=== PATIENT | male | born 1950 | race Caucasian/White ===

== ENCOUNTER 2016-05-30 00:17 | Inpatient (IN) | payer OTHER, MEDICARE ==
[2016-05-30] MEDS ORDERED: SODIUM CHLORIDE 0.9% 1,000 ML IV STA (00:54)
--- NOTE | 2016-05-30 00:54 | ED ---
General Adult HPI - General Chief complaint: Recheck/Abnormal Lab/Rx Stated complaint: Low Blood Pressure Time Seen by Provider: 05/30/16 00:40 Source: patient, RN notes reviewed, old records reviewed Mode of arrival: EMS Limitations: no limitations - History of Present Illness Initial comments: This is a 66-year-old male here for evaluation of weakness, weakness fatigue. Patient has multiple in the pelvic area recent medical history. Patient sent in from clinic care facility for evaluation of low blood pressure. Patient states that he has significant shortness of breath [place] [employer] within is worsening, states it feels like there is a lot of fluid has lungs that she has had an issue of. Patient denies abdominal pain, no specific chest at this time aside from the shortness of breath. No other nausea vomiting or diarrhea. No known fevers - Related Data Home Medications Medication Instructions Recorded Confirmed Allopurinol [Zyloprim] 100 mg PO DAILY PRN 04/22/16 05/18/16 Atorvastatin [Lipitor] 40 mg PO HS 05/18/16 05/18/16 INSULIN LISPRO (humaLOG) [humaLOG See Protocol SQ ACHS 05/18/16 05/18/16 (formulary)] Multivitamins, Thera [Multivitamin] 1 tab PO DAILY@1200 05/18/16 05/18/16 Sennosides [Senna] 17.2 mg PO HS 05/18/16 05/18/16 Previous Rx's Medication Instructions Recorded Apixaban [Eliquis] 5 mg PO BID tab 05/11/16 Aspirin 81 mg PO DAILY chew 05/11/16 Bisacodyl [Dulcolax] 10 mg RECTAL DAILY PRN #0 supp 05/11/16 Carvedilol [Coreg] 3.125 mg PO BID-W/MEALS tab 05/11/16 Ferrous Sulfate [Iron (65 MG 325 mg PO W/LUNCH tab 05/11/16 Elemental)] Furosemide [Lasix] 20 mg PO DAILY #30 tab 05/11/16 Insulin Glargine [Lantus] 25 unit SQ HS #0 vial 05/11/16 Pantoprazole [Protonix] 40 mg PO AC-BRKFST tablet. 05/11/16 QUEtiapine [SEROquel] 12.5 mg PO W/SUPPER tab 05/11/16 Tamsulosin [Flomax] 0.4 mg PO PC-SUPPER #0 cap.er.24h 05/11/16 Thiamine [Vitamin B-1] 100 mg PO BID@1200,1700 tab 05/11/16 guaiFENesin [Mucinex] 600 mg PO Q12HR tablet.er 05/11/16 Albuterol Nebulized [Ventolin 2.5 mg INHALATION RT-QID nebu 05/24/16 Nebulized] Amiodarone [Cordarone] 200 mg PO BID tab 05/24/16 Budesonide [Pulmicort] 0.5 mg INHALATION RT-BID nebu 05/24/16 Cefuroxime [Ceftin] 250 mg PO BID #14 tablet 05/24/16 INSULIN LISPRO (humaLOG) [humaLOG 3 unit SQ AC-TID #0 vial 05/24/16 (formulary)] Lisinopril [Zestril] 2.5 mg PO DAILY tab 05/24/16 Nitroglycerin Sl Tabs [Nitrostat] 0.4 mg SUBLINGUAL Q5M PRN #0 tab 05/24/16 predniSONE 0 mg PO DIRECTED #45 tab 05/24/16 traMADol HCl [Ultram] 50 mg PO Q6H PRN #120 tab 05/24/16 Allergies Allergy/AdvReac Type Severity Reaction Status Date / Time No Known Allergies Allergy Verified 05/18/16 18:52 Review of Systems ROS Statement: Those systems with pertinent positive or pertinent negative responses have been documented in the HPI. ROS Other: All systems not noted in ROS Statement are negative. Past Medical History Past Medical History: Atrial Fibrillation, Coronary Artery Disease (CAD), COPD, Diabetes Mellitus, GERD/Reflux, Hyperlipidemia, Hypertension, Myocardial Infarction ([place]), Osteoarthritis (OA), Vascular Disorder Last Myocardial Infarction Date:: 03/2016 History of Any Multi-Drug Resistant Organisms: MRSA Date of last positivie culture/infection: 04/12/16 MDRO Source:: NASAL Past Surgical History: Coronary Bypass/CABG, Heart Catheterization Additional Past Surgical History / Comment(s): Nasal polyps, left heart catheterization, quadruple bypass 04/2016 Past Anesthesia/Blood Transfusion Reactions: No Reported Reaction Past Psychological History: No Psychological Hx Reported Smoking Status: Former smoker Past Alcohol Use History: Daily Additional Past Alcohol Use History / Comment(s): pt drinks 1 to 4 drinks per day. pt has been at [facility] for rehab so no alochol use there Past Drug Use History: None Reported - Past Family History Mother Family Medical History: Diabetes Mellitus, Myocardial Infarction ([place]) Father Family Medical History: Cancer Brother(s) Family Medical History: Hypertension Sister(s) Family Medical History: No Reported History Son(s) Family Medical History: No Reported History General Exam Limitations: no limitations General appearance: alert, in no apparent distress, anxious, lethargic, in distress Head exam: Present: atraumatic, normocephalic, normal inspection Eye exam: Present: normal appearance, PERRL, EOMI. Absent: scleral icterus, conjunctival injection, periorbital swelling ENT exam: Present: normal exam, mucous membranes moist Neck exam: Present: normal inspection. Absent: tenderness, meningismus, lymphadenopathy Respiratory exam: Present: respiratory distress, wheezes, accessory muscle use, decreased breath sounds, prolonged expiratory. Absent: rales, rhonchi, stridor Cardiovascular Exam: Present: normal rhythm, tachycardia, normal heart sounds. Absent: systolic murmur, diastolic murmur, rubs, gallop, clicks GI/Abdominal exam: Present: soft, normal bowel sounds. Absent: distended, tenderness, guarding, rebound, rigid Extremities exam: Present: normal inspection, full ROM, normal capillary refill. Absent: tenderness, pedal edema, joint swelling, calf tenderness Back exam: Present: normal inspection Neurological exam: Present: alert, oriented X3, CN II-XII intact Psychiatric exam: Present: normal affect, normal mood Skin exam: Present: warm, dry, intact, normal color. Absent: rash Course Vital Signs 05/30/16 05/30/16 05/30/16 00:20 01:21 01:50 Temperature 98.4 F Pulse Rate 126 H 124 H 124 H Respiratory 18 20 18 Rate Blood Pressure 93/58 90/53 82/56 O2 Sat by Pulse 94 L 96 97 Oximetry 05/30/16 05/30/16 02:22 03:02 Temperature Pulse Rate 124 H 124 H Respiratory 20 18 Rate Blood Pressure 94/59 95/56 O2 Sat by Pulse 97 96 Oximetry EKG Findings - EKG Comments: EKG Findings:: EKG shows wide complex tach rate of 125, QRS 156, QTC 565 Medical Decision Making - Medical Decision Making 66 male To ER. Evaluation of low blood pressure, shortness of breath. Having CHF, increased weakness and lethargy. Mild troponin elevation which we'll trend , continued low blood pressure and A. fib with RVR - Lab Data Result diagrams: 05/30/16 00:35 05/30/16 00:35 Lab Results 05/30/16 05/30/16 05/30/16 Range/Units 00:35 00:35 00:35 WBC 5.9 (3.8-10.6) k/uL RBC 2.99 L (4.30-5.90) m/uL Hgb 9.4 L (13.0-17.5) gm/dL Hct 29.2 L (39.0-53.0) % MCV 97.5 D (80.0-100.0) fL MCH 31.4 (25.0-35.0) pg MCHC 32.2 (31.0-37.0) g/dL RDW 16.7 H (11.5-15.5) % Plt Count 105 L (150-450) k/uL Neutrophils % 83 % Lymphocytes % 11 % Monocytes % 5 % Eosinophils % 0 % Basophils % 0 % Neutrophils # 4.9 (1.3-7.7) k/uL Lymphocytes # 0.6 L (1.0-4.8) k/uL Monocytes # 0.3 (0-1.0) k/uL Eosinophils # 0.0 (0-0.7) k/uL Basophils # 0.0 (0-0.2) k/uL Hypochromasia Moderate Anisocytosis Slight Macrocytosis Slight PT (9.0-12.0) sec INR (<1.1) APTT (22.0-30.0) sec Sodium 135 L (137-145) mmol/L Potassium 4.3 (3.5-5.1) mmol/L Chloride 96 L (98-107) mmol/L Carbon Dioxide 29 (22-30) mmol/L Anion Gap 10 mmol/L BUN 62 H (9-20) mg/dL Creatinine 1.00 (0.66-1.25) mg/dL Est GFR (MDRD) Af Amer >60 (>60 ml/min/1.73 sqM) Est GFR (MDRD) Non-Af >60 (>60 ml/min/1.73 sqM) Glucose 237 H (74-99) mg/dL Calcium 8.2 L (8.4-10.2) mg/dL Phosphorus 4.0 (2.5-4.5) mg/dL Magnesium 2.0 (1.6-2.3) mg/dL Total Bilirubin 1.0 (0.2-1.3) mg/dL AST 34 (17-59) U/L ALT 61 (21-72) U/L Alkaline Phosphatase 171 H (38-126) U/L Total Creatine Kinase <20 L (55-170) U/L CK-MB (CK-2) 2.3 (0.0-2.4) ng/mL CK-MB (CK-2) Rel Index 0.0 Troponin I 0.060 H* (0.000-0.034) ng/mL NT-Pro-B Natriuret Pep pg/mL Total Protein 5.1 L (6.3-8.2) g/dL Albumin 2.8 L (3.5-5.0) g/dL 05/30/16 05/30/16 Range/Units 00:35 00:35 WBC (3.8-10.6) k/uL RBC (4.30-5.90) m/uL Hgb (13.0-17.5) gm/dL Hct (39.0-53.0) % MCV (80.0-100.0) fL MCH (25.0-35.0) pg MCHC (31.0-37.0) g/dL RDW (11.5-15.5) % Plt Count (150-450) k/uL Neutrophils % % Lymphocytes % % Monocytes % % Eosinophils % % Basophils % % Neutrophils # (1.3-7.7) k/uL Lymphocytes # (1.0-4.8) k/uL Monocytes # (0-1.0) k/uL Eosinophils # (0-0.7) k/uL Basophils # (0-0.2) k/uL Hypochromasia Anisocytosis Macrocytosis PT 12.6 H (9.0-12.0) sec INR 1.3 (<1.1) APTT 24.8 (22.0-30.0) sec Sodium (137-145) mmol/L Potassium (3.5-5.1) mmol/L Chloride (98-107) mmol/L Carbon Dioxide (22-30) mmol/L Anion Gap mmol/L BUN (9-20) mg/dL Creatinine (0.66-1.25) mg/dL Est GFR (MDRD) Af Amer (>60 ml/min/1.73 sqM) Est GFR (MDRD) Non-Af (>60 ml/min/1.73 sqM) Glucose (74-99) mg/dL Calcium (8.4-10.2) mg/dL Phosphorus (2.5-4.5) mg/dL Magnesium (1.6-2.3) mg/dL Total Bilirubin (0.2-1.3) mg/dL AST (17-59) U/L ALT (21-72) U/L Alkaline Phosphatase (38-126) U/L Total Creatine Kinase (55-170) U/L CK-MB (CK-2) (0.0-2.4) ng/mL CK-MB (CK-2) Rel Index Troponin I (0.000-0.034) ng/mL NT-Pro-B Natriuret Pep 5590 pg/mL Total Protein (6.3-8.2) g/dL Albumin (3.5-5.0) g/dL - Radiology Data Radiology results: report reviewed (Chest x-ray shows no interval change, CHF), image reviewed Critical Care Time Critical Care Time: Yes Total Critical Care Time: 31 Disposition Clinical Impression: Atrial flutter with rapid ventricular response, Acute renal failure, Elevated troponin, Hypotension, CHF (congestive heart failure) Disposition: ADMITTED IP TO THIS HOSP Condition: Fair Referrals: Messi Greenfield MD [Primary Care Provider] - 1-2 days
[2016-05-30 01:41] LABS: Anisocytosis Slight; Basophils % (A) 0 %; CH 30.7; CHCM 31.6; Eosinophils % (A) 0 %; HCT 29.2 % (39.0-53.0); HDW 3.32; HGB 9.4 gm/dL (13.0-17.5); Hypochromasia Moderate; Luc # (Auto) 0.06; Luc % (Auto) 1; Lymphocytes # (A) 0.6 k/uL (1.0-4.8); Lymphocytes % (A) 11 %; MCH 31.4 pg (25.0-35.0); MCHC 32.2 g/dL (31.0-37.0); Macrocytosis Slight; Mean Platelet Volume 8.5; Monocytes # (A) 0.3 k/uL (0-1.0); Monocytes % (A) 5 %; Neutrophils # (A) 4.9 k/uL (1.3-7.7); Neutrophils % (A) 83 %; RBC 2.99 m/uL (4.30-5.90); RDW 16.7 % (11.5-15.5); WBC 5.9 k/uL (3.8-10.6); WBC (Perox) 6.52
[2016-05-30 01:44] LABS: MCV 97.5 fL (80.0-100.0)
[2016-05-30 01:47] LABS: INR 1.3 (<1.1); Partial Thromboplastin Time 24.8 sec (22.0-30.0); Prothrombin Time 12.6 sec (9.0-12.0)
[2016-05-30 01:48] LABS: ALT 61 U/L (21-72); AST 34 U/L (17-59); Alkaline Phosphatase 171 U/L (38-126); Anion Gap 10 mmol/L; Blood Urea Nitrogen 62 mg/dL (9-20); Calcium 8.2 mg/dL (8.4-10.2); Carbon Dioxide 29 mmol/L (22-30); Chloride 96 mmol/L (98-107); Glucose 237 mg/dL (74-99); Non-African American GFR(MDRD) >60 (>60 ml/min/1.73 sqM); Potassium 4.3 mmol/L (3.5-5.1); Sodium 135 mmol/L (137-145); Total Protein 5.1 g/dL (6.3-8.2)
[2016-05-30 01:57] LABS: Creatine Kinase <20 U/L (55-170)
[2016-05-30 02:10] LABS: Creatine Kinase MB 2.3 ng/mL (0.0-2.4)
--- NOTE | 2016-05-30 02:32 | XR ---
EXAMINATION TYPE: XR chest 2V DATE OF EXAM: 05/30/2016 1:18 AM COMPARISON: May 22, 2016 HISTORY: Shortness of breath, weakness TECHNIQUE: Frontal and lateral views of the chest are obtained. FINDINGS: Diffuse perihilar pulmonary edema is noted with CHF changes without significant interval change. Mode rate cardiomegaly and sternotomy changes are present. No pneumothorax or pleural effusion is suggeste d. The osseous structures are intact. IMPRESSION: 1. No significant interval change. 2. CHF changes with pulmonary edema. 3. Cardiomegaly and sternotomy.
[2016-05-30] MEDS ORDERED: SODIUM CHLORIDE 0.9% 1,000 ML IV SCH ×2 (03:15→11:00)
[2016-05-30] MEDS ORDERED: NITROGLYCERIN SL TABS 0.4 MG TAB SUBLINGUAL PRN ×2 (03:15→14:53)
[2016-05-30] MEDS ORDERED: DILTIAZEM 5 MG/ML 5 ML VIAL IVP STA (03:18)
[2016-05-30] MEDS ORDERED: SODIUM CHLORIDE 0.9% 500 ML IV ONE (04:53)
[2016-05-30 07:03] LABS: Appearance,Urine Clear (Clear); Bilirubin,Urine Negative (Negative); Glucose,Urine (UA) Negative (Negative); Ketones,Urine Negative (Negative); Leukocyte Esterase,Urine Negative (Negative); Nitrite,Urine Negative (Negative); PH, Urine 6.5 (5.0-8.0); Protein,Urine Negative (Negative); Specific Gravity,Urine 1.016 (1.001-1.035); UA Billing (MACRO vs. MICRO) CHEM
[2016-05-30] MEDS ORDERED: ENOXAPARIN 40 MG/0.4 ML SYRINGE SQ SCH (09:00)
[2016-05-30 09:30] LABS: Creatine Kinase <20 U/L (55-170)
[2016-05-30 09:41] LABS: Creatine Kinase MB 2.3 ng/mL (0.0-2.4)
[2016-05-30 09:55] LABS: Troponin I 0.074 ng/mL (0.000-0.034)
--- NOTE | 2016-05-30 10:54 | P.CRDCN ---
History of Present Illness Consult date: 05/30/16 Requesting physician: Messi Greenfield Consult reason: shortness of breath Chief complaint: Shortness of breath History of present illness: This is a 66-year-old gentleman, status post recent aortic valve replacement and coronary artery bypass grafting surgery. Patient had an aortic valve bioprosthesis and four-vessel bypass with a QUEZADA to the LAD, vein graft to the diagonal, first obtuse marginal and right coronary artery. Post procedure was complicated by recurrent atrial fibrillation, he underwent a cardioversion during that admission, he was also recently admitted to the hospital on May 18, again underwent electrical cardioversion from atrial flutter to normal sinus rhythm. He was discharged to [facility] for rehab. Patient again readmitted to the hospital with symptoms of weakness and fatigue with associated shortness of breath. EKG on admission here showed atrial flutter, with left bundle-branch block pattern. He continues to be in an atrial flutter this morning with a heart rate in the 120s to 130s. Chest x-ray on admission revealed congestive cardiac failure with evidence of pulmonary edema. Laboratory data was reviewed, hemoglobin 9.4, platelet count 105, WBC 5.9, potassium 4.3, BUN 62, creatinine 1.0, BNP level 5590. Troponins 0.060, 0.074. Magnesium level 2.0. Blood pressure 94/60, heart rate in the 120s. Patient was given 500 mL of IV fluids and continues to be on IV fluids at 100 per hour. He was given IV Cardizem bolus and was going to be initiated on IV Cardizem drip however the blood pressure dropped to 80 systolic and therefore this was halted. At the time of my examination this morning, patient continues to feel quite weak, short of breath, denies any palpitations. Past Medical History Past Medical History: Atrial Fibrillation, Coronary Artery Disease (CAD), Chest Pain / Angina, COPD, Diabetes Mellitus, GERD/Reflux, Hyperlipidemia, Hypertension, Myocardial Infarction ([place]), Osteoarthritis (OA), Pneumonia, Prostate Disorder, Respiratory Disorder, Vascular Disorder Additional Past Medical History / Comment(s): Severe left ventricular dysfunction, pulmonary fibrosis, gout, BPH Last Myocardial Infarction Date:: 03/2016 History of Any Multi-Drug Resistant Organisms: MRSA Date of last positivie culture/infection: 04/12/16 MDRO Source:: NASAL Past Surgical History: Coronary Bypass/CABG, Heart Catheterization Additional Past Surgical History / Comment(s): Nasal polyps, left heart catheterization, quadruple bypass 04/2016, cardioversions x 2. Past Anesthesia/Blood Transfusion Reactions: No Reported Reaction Past Psychological History: No Psychological Hx Reported Additional Psychological History / Comment(s): Pt currently is staying at [facility] for rehab. He states he was up walking short distances with a walker. He used to do metallurgy work. Smoking Status: Former smoker Past Alcohol Use History: Daily Additional Past Alcohol Use History / Comment(s): pt used to drink 2 beers daily but. pt has been at [facility] for rehab so no alochol use there. Pt started smoking in 1972 and quit in March 2016. Past Drug Use History: None Reported - Past Family History Mother Family Medical History: Diabetes Mellitus, Myocardial Infarction ([place]) Additional Family Medical History / Comment(s): Mother had her first MD at the age of 35ys. She of a MD at the age of 62yrs. Father Family Medical History: Cancer Additional Family Medical History / Comment(s): Father had colon and prostate cancer. He at the age of 89yrs. Brother(s) Family Medical History: Hypertension Sister(s) Family Medical History: No Reported History Son(s) Family Medical History: No Reported History Medications and Allergies Home Medications Medication Instructions Recorded Confirmed Type Allopurinol [Zyloprim] 100 mg PO DAILY PRN 04/22/16 05/30/16 History Atorvastatin [Lipitor] 40 mg PO HS 05/18/16 05/30/16 History Multivitamins, Thera [Multivitamin] 1 tab PO QAM 05/18/16 05/30/16 History Sennosides [Senna] 17.2 mg PO HS 05/18/16 05/30/16 History Amino Acids/Protein Hydrolys 30 ml PO BID 05/30/16 05/30/16 History [Pro-Stat Supplement] Carvedilol [Coreg] 3.125 mg PO Q12H 05/30/16 05/30/16 History Ferrous Sulfate [Iron (65 MG 325 mg PO QAM 05/30/16 05/30/16 History Elemental)] INSULIN LISPRO (humaLOG) [HumaLOG] 2 units SQ BID@1130,1630 05/30/16 05/30/16 History INSULIN LISPRO (humaLOG) [humaLOG 3 unit SQ AC-BRKFST 05/30/16 05/30/16 History (formulary)] Melatonin 3 mg PO HS 05/30/16 05/30/16 History Nystatin 100,000 Unit/ml Susp 5 ml PO Q6H PRN 05/30/16 05/30/16 History [Mycostatin Oral Susp] Potassium Chloride [K-Tab ER] 20 meq PO DAILY 05/30/16 05/30/16 History QUEtiapine [SEROquel] 12.5 mg PO HS 05/30/16 05/30/16 History predniSONE See Taper PO DAILY 05/30/16 05/30/16 History Allergies Allergy/AdvReac Type Severity Reaction Status Date / Time No Known Allergies Allergy Verified 05/30/16 07:09 Physical Exam Vitals: Vital Signs Temp Pulse Pulse Resp BP BP Pulse Ox 05/30/16 08:00 97.4 F L 124 H 20 94/60 97 05/30/16 07:55 18 05/30/16 07:00 124 H 18 90/62 98 05/30/16 06:13 124 H 18 96/60 98 05/30/16 05:48 124 H 18 90/61 97 05/30/16 05:27 124 H 18 84/55 98 05/30/16 05:02 110 H 16 76/54 99 05/30/16 04:51 112 H 16 72/53 96 05/30/16 04:49 124 H 18 101/64 97 05/30/16 04:24 97.1 F L 124 H 18 94/60 98 Intake and Output 05/29/16 05/30/16 05/30/16 22:59 06:59 14:59 Output Total 300 Balance -300 Output: Urine 300 PHYSICAL EXAMINATION: HEENT: Head is atraumatic, normocephalic. Pupils equal, round. Neck is supple. There is no elevated jugular venous pressure. HEART EXAMINATION: R S1 and S2 irregular irregular systolic murmur is heard. CHEST EXAMINATION: Lungs reveal diminished air entry to bilateral bases. ABDOMEN: Soft, nontender. Bowel sounds are heard. No organomegaly noted. EXTREMITIES: 2+ peripheral pulses with no evidence of peripheral edema and no calf tenderness noted. NEUROLOGIC patient is awake, alert and oriented -3. . Results 05/30/16 00:35 05/30/16 00:35 Cardiac Enzymes 05/30/16 Range/Units 06:56 CK-MB (CK-2) 2.3 (0.0-2.4) ng/mL Troponin I 0.074 H* (0.000-0.034) ng/mL Current Medications Generic Name Dose Route Start Last Admin Trade Name Freq PRN Reason Stop Dose Admin Amiodarone HCl 200 mg 05/30/16 10:30 Cordarone PO BID RONEL Apixaban 5 mg 05/30/16 10:30 Eliquis PO BID RONEL Aspirin 325 mg 05/31/16 09:00 05/30/16 08:07 Aspirin PO 325 mg DAILY RONEL Administration Aspirin 81 mg 05/30/16 10:30 Aspirin PO DAILY RONEL Atorvastatin Calcium 40 mg 05/30/16 21:00 Lipitor PO HS RONEL Sodium Chloride 1,000 mls @ 100 mls/hr 05/30/16 00:54 05/30/16 01:19 Saline 0.9% IV 05/30/16 10:53 100 mls/hr .Q10H STA Administration Sodium Chloride 1,000 mls @ 100 mls/hr 05/30/16 03:15 Saline 0.9% IV .Q10H RONEL Lisinopril 2.5 mg 05/31/16 09:00 Zestril PO DAILY [facility] Nitroglycerin 0.4 mg 05/30/16 03:15 Nitrostat SUBLINGUAL Q5M PRN Chest Pain Intake and Output 05/29/16 05/30/16 05/30/16 22:59 06:59 14:59 Output Total 300 Balance -300 Output: Urine 300 EKG Interpretations (text) EKG shows atrial flutter with a rapid ventricular response. Assessment and Plan Plan: Assessment and plan #1 atrial flutter with rapid ventricular response, patient has undergone 2 separate elective cardioversions, and has also been maintained on oral amiodarone. On Eliquis for anticoagulation. #2 recent aortic valve replacement and four-vessel bypass. #3 hypertension #4 diabetes #5 hyperlipidemia Plan We will discontinue the Lovenox and reinitiate the patient's Eliquis which he was taking at home. We will also reinitiate amiodarone, baby aspirin, Lipitor 40 at at bedtime, lisinopril 2.5 mg daily. We will also speak with Dr. Peck regarding a possible flutter ablation as the patient has already had 2 elective cardioversions and has been on amiodarone. Further recommendations to follow. We will discontinue the IV fluids and keep patient's IV at KVO. Further recommendations to follow. DNP note has been reviewed, I agree with a documented findings and plan of care. Patient was seen and examined.
[2016-05-30] MEDS: ASPIRIN 81 MG CHEW PO SCH (11:53)
[2016-05-30] MEDS: AMIODARONE 200 MG TAB PO SCH ×2 (11:55→21:53)
[2016-05-30] MEDS: APIXABAN 5 MG TAB PO SCH ×2 (11:56→21:53)
[2016-05-30 13:31] LABS: Creatine Kinase <20 U/L (55-170)
[2016-05-30 13:48] LABS: Creatine Kinase MB 2.6 ng/mL (0.0-2.4); Troponin I 0.075 ng/mL (0.000-0.034)
[2016-05-30] MEDS ORDERED: BISACODYL 10 MG SUPP RECTAL PRN (14:53)
[2016-05-30] MEDS ORDERED: traMADol 50 MG TAB PO PRN (14:53)
[2016-05-30] MEDS ORDERED: ALLOPURINOL 100 MG TAB PO PRN (14:53)
--- NOTE | 2016-05-30 15:00 | P.HPIM ---
History of Present Illness H&P Date: 05/30/16 Chief Complaint: Shortness of breath This is a 66-year-old gentleman who is followed by Dr. Chaitanya Parr on an outpatient basis. On 04/22/2016 the patient presented to the emergency department at [facility], with complaints of dyspnea. The patient denied complaints of any chest pain, and nausea. On presentation to the emergency department at [facility], a 12-lead EKG was completed which showed him to have some ST elevation in his inferior leads. Subsequently, this patient was seen and examined by Dr. Scherer from [facility] and the patient was transferred to [facility] for further evaluation and workup. The patient was admitted to the hospital and underwent an urgent cardiac catheterization by Dr. Scherer, which demonstrated the patient to have a totally occluded right coronary artery, 80% stenosis to a circumflex coronary artery, a 90% stenosis to his proximal left anterior descending coronary artery, and a 60 % stenosis to his mid left anterior descending coronary artery. The patient also underwent a 2-D echocardiogram, which demonstrated mild concentric left ventricular hypertrophy, mild mitral regurgitation, mild tricuspid regurgitation , an overall left ventricular systolic function severely impaired with an ejection fraction of 25-30%, [id number] aortic stenosis with mitral aortic regurgitation, and a peak/mean gradient across the aortic valve of 42.44 mmHg and 22.56 mmHg. The above-mentioned studies were reviewed with the patient by Dr. Scherer and by Dr. Hardy and an urgent coronary artery bypass grafting surgery with aortic valve replacement was done using QUEZADA to LAD saphenous venous graft to the diagonal branch, SVG to the obtuse marginal branch , and 7 as well as SVG to the RCA, along with aortic valve bioprosthesis, his hospital course was completed by acute bronchitis with Serratia marcescens as well as tachybradycardia syndrome and eventually he was transferred to [facility] for physical therapy rehabilitation. Patient was readmitted to [facility] on May 18 for atrial flutter with rapid ventricular response and underwent cardioversion on 2015. He was also treated for acute on chronic diastolic heart failure. He was discharged back to [facility] on May 24. Patient stated that he was in fine up until today when he started feeling short of breath and that he was feeling off with water. He was transferred to [facility] emergency center where he was found to have an elevated heart rate and again in atrial flutter. His blood pressure was low and he received fluid boluses of 1-1/2 L total. Troponins were 0.060, 0.074, 0.075. ProBNP was 5590. Urinalysis was negative. Patient was seen by cardiology with plan to have Dr. Peck evaluate for possible cardiac ablation. Patient is seen at this time in the emergency room as he is waiting for a selective care bed to be made available. Review of Systems All systems: negative Constitutional: Reports fatigue, Denies chills, Denies fever Eyes: denies blurred vision, denies pain Ears, nose, mouth and throat: Denies headache, Denies sore throat Cardiovascular: Reports shortness of breath, Denies chest pain Respiratory: Denies cough Gastrointestinal: Denies abdominal pain, Denies diarrhea, Denies nausea, Denies vomiting Musculoskeletal: Denies myalgias Integumentary: Denies pruritus, Denies rash Neurological: Denies numbness, Denies weakness Psychiatric: Denies anxiety, Denies depression Endocrine: Denies fatigue, Denies weight change Past Medical History Past Medical History: Atrial Fibrillation, Coronary Artery Disease (CAD), Chest Pain / Angina, COPD, Diabetes Mellitus, GERD/Reflux, Hyperlipidemia, Hypertension, Myocardial Infarction (MT), Osteoarthritis (OA), Pneumonia, Prostate Disorder, Respiratory Disorder, Vascular Disorder Additional Past Medical History / Comment(s): Severe left ventricular dysfunction, pulmonary fibrosis, gout, BPH Last Myocardial Infarction Date:: 03/2016 History of Any Multi-Drug Resistant Organisms: MRSA Date of last positivie culture/infection: 04/12/16 MDRO Source:: NASAL Past Surgical History: Coronary Bypass/CABG, Heart Catheterization Additional Past Surgical History / Comment(s): Nasal polyps, left heart catheterization, quadruple bypass 04/2016, cardioversions x 2. Past Anesthesia/Blood Transfusion Reactions: No Reported Reaction Past Psychological History: No Psychological Hx Reported Additional Psychological History / Comment(s): Pt currently is staying at [facility] for rehab. He states he was up walking short distances with a walker. He used to do metallurgy work. Smoking Status: Former smoker Past Alcohol Use History: Daily Additional Past Alcohol Use History / Comment(s): pt used to drink 2 beers daily but. pt has been at [facility] for rehab so no alochol use there. Pt started smoking in 1972 and quit in March 2016. Past Drug Use History: None Reported - Past Family History Mother Family Medical History: Diabetes Mellitus, Myocardial Infarction (MT) Additional Family Medical History / Comment(s): Mother had her first MT at the age of 35ys. She of a MT at the age of 62yrs. Father Family Medical History: Cancer Additional Family Medical History / Comment(s): Father had colon and prostate cancer. He at the age of 89yrs. Brother(s) Family Medical History: Hypertension Sister(s) Family Medical History: No Reported History Son(s) Family Medical History: No Reported History Medications and Allergies Home Medications Medication Instructions Recorded Confirmed Type Allopurinol [Zyloprim] 100 mg PO DAILY PRN 04/22/16 05/30/16 History Atorvastatin [Lipitor] 40 mg PO HS 05/18/16 05/30/16 History Multivitamins, Thera [Multivitamin] 1 tab PO QAM 05/18/16 05/30/16 History Sennosides [Senna] 17.2 mg PO HS 05/18/16 05/30/16 History Amino Acids/Protein Hydrolys 30 ml PO BID 05/30/16 05/30/16 History [Pro-Stat Supplement] Carvedilol [Coreg] 3.125 mg PO Q12H 05/30/16 05/30/16 History Ferrous Sulfate [Iron (65 MG 325 mg PO QAM 05/30/16 05/30/16 History Elemental)] INSULIN LISPRO (humaLOG) [HumaLOG] 2 units SQ BID@1130,1630 05/30/16 05/30/16 History INSULIN LISPRO (humaLOG) [humaLOG 3 unit SQ AC-BRKFST 05/30/16 05/30/16 History (formulary)] Melatonin 3 mg PO HS 05/30/16 05/30/16 History Nystatin 100,000 Unit/ml Susp 5 ml PO Q6H PRN 05/30/16 05/30/16 History [Mycostatin Oral Susp] Potassium Chloride [K-Tab ER] 20 meq PO DAILY 05/30/16 05/30/16 History QUEtiapine [SEROquel] 12.5 mg PO HS 05/30/16 05/30/16 History predniSONE See Taper PO DAILY 05/30/16 05/30/16 History Allergies Allergy/AdvReac Type Severity Reaction Status Date / Time No Known Allergies Allergy Verified 05/30/16 07:09 Physical Exam Vitals: Vital Signs Temp Pulse Pulse Resp BP BP Pulse Ox 05/30/16 11:17 125 H 16 92/55 99 05/30/16 08:00 97.4 F L 124 H 20 94/60 97 05/30/16 07:55 18 05/30/16 07:00 124 H 18 90/62 98 05/30/16 06:13 124 H 18 96/60 98 05/30/16 05:48 124 H 18 90/61 97 05/30/16 05:27 124 H 18 84/55 98 05/30/16 05:02 110 H 16 76/54 99 05/30/16 04:51 112 H 16 72/53 96 05/30/16 04:49 124 H 18 101/64 97 05/30/16 04:24 97.1 F L 124 H 18 94/60 98 Intake and Output 05/29/16 05/30/16 05/30/16 22:59 06:59 14:59 Output Total 300 Balance -300 Output: Urine 300 Gen: This is a 66-year-old male. He is sitting up on stretcher and appears to be in no acute distress. court recording monitor is atrial flutter. HEENT: Head is atraumatic, normocephalic. Pupils equal, round. Sclerae is anicteric. NECK: Supple. No JVD. No lymphadenopathy. No thyromegaly. LUNGS: Diminished bilateral bases but otherwise clear to auscultation. No wheezes or rhonchi. No intercostal retractions. HEART: Irregular rate and rhythm. Systolic murmur. ABDOMEN: Soft. Bowel sounds are present. No masses. No tenderness. EXTREMITIES: 1+ pedal edema bilaterally slightly worse on the right. Significant ecchymosis to the right leg. No calf tenderness. NEUROLOGICAL: Patient is awake, alert and oriented x3. Cranial nerves 2 through 12 are grossly intact. Results CBC & Chem 7: 05/30/16 00:35 05/30/16 00:35 Labs: Abnormal Lab Results - Last 24 Hours (Table) 05/30/16 Range/Units 06:56 Total Creatine Kinase <20 L (55-170) U/L Troponin I 0.074 H* (0.000-0.034) ng/mL Microbiology - Last 24 Hours (Table) 05/30/16 06:29 Urine Culture - Preliminary Urine,Voided Thrombosis Risk Factor Assmnt - DVT/VTE Prophylaxis DVT/VTE Prophylaxis: Pharmacologic Prophylaxis ordered - Choose All That Apply Any of the Below Risk Factors Present?: Yes Each Factor Represents 1 point: Heart failure (<1month), Obesity (BMI >25), Serious lung disease incl. pneumonia (< 1month) Other Risk Factors: Yes Each Risk Factor Represents 2 Points: Age 61-74 years Other congenital or acquired thrombophilia - If yes, enter type in comment: No Thrombosis Risk Factor Assessment Total Risk Factor Score: 5 Thrombosis Risk Factor Assessment Level: High Risk Assessment and Plan Plan: 1. Atrial flutter with rapid ventricular response with previous history of electrical cardioversions. Patient has been seen by cardiology. Continue amiodarone and eliquis. He did receive bolus dose of Cardizem but due to hypotension, Cardizem drip was not started. 2. Coronary artery disease status post coronary artery bypass graft with QUEZADA to LAD, SVG to the diagonal branch, SVG to obtuse marginal branch, SVG to RCA with severe LV dysfunction. 3. Moderate to severe aortic valve stenosis status post bioprosthetic aortic valve replacement. Stable at this point in time. 4. Hypertension. Currently hypotensive. Patient is normally on Coreg 3.125 mg every 12 hours, Lasix 20 mg daily, lisinopril 2.5 mg daily. Patient has been hypotensive and parameters in place for his antihypertensive medications. 5. Hyperlipidemia. Continue Lipitor. 6. Medical debility. Return to [facility] with the patient is more stable. 7. COPD currently stable. Continue albuterol as needed. 8. 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 9. Chronic diastolic heart failure, last ELIZABETH performed 05/09/2016 ejection fraction 45-50%. Continue Lasix 20 mg daily with potassium supplement. 7. DVT prophylaxis. Eliquis. 8. GI prophylaxis. Continue patient on Protonix 40 mg orally once every day. 9. Patient is full code. Discharge plan: Return to [facility] Impression and plan of care have been directed as dictated by the signing physician. Diane Young nurse practitioner acting as scribe for signing physician. Cc Dr. Chaitanya Parr Time with Patient: Greater than 30
[2016-05-30] MEDS ORDERED: ALBUTEROL NEBULIZED 2.5 MG/3 ML INHALATION SCH (16:00)
[2016-05-30 18:22] LABS: Glucose,Whole Blood 96 mg/dL (75-99)
[2016-05-30] MEDS: INSULIN LISPRO (humaLOG) 300 UNIT/3 ML VIAL SQ SCH ×3 (18:24→22:14)
[2016-05-30] MEDS: CARVEDILOL 3.125 MG TAB PO SCH (18:49)
[2016-05-30] MEDS: SODIUM CHLORIDE 0.9% 1,000 ML IV SCH (18:54)
[2016-05-30] MEDS: THIAMINE 100 MG TAB PO SCH (18:55)
[2016-05-30] MEDS: TAMSULOSIN 0.4 MG CAP.ER.24H PO SCH (18:55)
[2016-05-30 20:49] LABS: Hemoglobin A1C 5.3 % (4.2-6.1)
[2016-05-30] MEDS ORDERED: INSULIN GLARGINE 100 UNIT/ML 10 ML VIAL SQ SCH (21:00)
[2016-05-30] MEDS ORDERED: NON-FORMULARY DRUG (Amino Acids/Protein Hydrolys [Pro-Stat Supplement] 30 ML) PO SCH (21:00)
[2016-05-30] MEDS ORDERED: CEFUROXIME 250 MG TAB PO SCH (21:00)
[2016-05-30] MEDS: ALBUTEROL NEBULIZED 2.5 MG/3 ML INHALATION PRN (21:14)
[2016-05-30] MEDS: BUDESONIDE 0.5 MG/2 ML NEBU INHALATION SCH (21:14)
[2016-05-30] MEDS: MELATONIN 3 MG TABLET PO SCH (21:53)
[2016-05-30] MEDS: QUEtiapine 25 MG TAB PO SCH (21:53)
[2016-05-30] MEDS: ATORVASTATIN 40 MG TAB PO SCH (21:54)
[2016-05-30] MEDS: guaiFENesin 600 MG TABLET.ER PO SCH (21:54)
[2016-05-30] MEDS: SENNOSIDES 8.6 MG TAB PO SCH (21:54)
[2016-05-30 22:10] LABS: Glucose,Whole Blood 296 mg/dL (75-99)
[2016-05-31] MEDS: ASPIRIN 81 MG CHEW PO SCH (05:09)
[2016-05-31] MEDS: AMIODARONE 200 MG TAB PO SCH (05:09)
[2016-05-31] MEDS: APIXABAN 5 MG TAB PO SCH ×2 (05:09→20:44)
[2016-05-31] MEDS: CARVEDILOL 3.125 MG TAB PO SCH (05:09)
[2016-05-31 06:43] LABS: Cholesterol 75 mg/dL (<200); HDL Cholesterol 39 mg/dL (40-60); Triglycerides 63 mg/dL (<150)
[2016-05-31] MEDS ORDERED: DEXTROSE 50%-WATER 50 ML SYRINGE IVP ONE (07:11)
[2016-05-31] MEDS ORDERED: ceFAZolin 2,000 MG in DEXTROSE/WATER 1 50ML.BAG IVPB ONE (07:15)
[2016-05-31 07:16] LABS: Glucose,Whole Blood 45 mg/dL (75-99)
[2016-05-31] MEDS: INSULIN LISPRO (humaLOG) 300 UNIT/3 ML VIAL SQ SCH ×3 (07:16→16:18)
[2016-05-31] MEDS ORDERED: INSULIN LISPRO (humaLOG) 300 UNIT/3 ML VIAL SQ SCH (07:30)
[2016-05-31] MEDS ORDERED: SODIUM CHLORIDE 0.9% 1,000 ML BAG ONE (07:33)
[2016-05-31] MEDS ORDERED: MIDAZOLAM 2 MG/2 ML VIAL ONE (07:33)
[2016-05-31] MEDS ORDERED: PHENYLEPHRINE-0.9% NACL SYG 1 MG/10 ML SYRINGE ONE (07:33)
[2016-05-31] MEDS ORDERED: ePHEDrine 50 MG/ML 1 ML AMP ONE (07:33)
[2016-05-31] MEDS ORDERED: HYDROmorphone (PF) 1 MG/ML ONE (07:33)
[2016-05-31] MEDS ORDERED: KETAMINE 10 MG/ML 20 ML VIAL ONE (07:33)
[2016-05-31 07:52] LABS: Glucose,Whole Blood 143 mg/dL (75-99)
[2016-05-31] MEDS ORDERED: LIDOCAINE 2% INJ 20 MG/ML SQ ONE ×2 (08:08→08:14)
[2016-05-31] MEDS: PANTOPRAZOLE 40 MG TABLET PO SCH (08:23)
[2016-05-31 08:45] LABS: Glucose,Whole Blood 126 mg/dL (75-99)
[2016-05-31] MEDS ORDERED: FUROSEMIDE 20 MG TAB PO SCH (09:00)
[2016-05-31] MEDS ORDERED: ASPIRIN 325 MG TAB PO SCH (09:00)
[2016-05-31] MEDS ORDERED: LISINOPRIL 2.5 MG TAB PO SCH (09:00)
[2016-05-31] MEDS: BUDESONIDE 0.5 MG/2 ML NEBU INHALATION SCH ×2 (09:09→18:48)
[2016-05-31 09:39] LABS: Glucose,Whole Blood 122 mg/dL (75-99)
--- NOTE | 2016-05-31 09:47 | P.PCN ---
Preoperative Diagnosis: Patient admitted with symptomatic atrial flutter, recurrent and drug refractory Successful atrial flutter ablation under conscious sedation Full procedure note and consult to follow
[2016-05-31] MEDS ORDERED: ACETAMINOPHEN IV (For NPO) 1,000 MG in EMPTY BAG 1 BAG IVPB ONE (09:50)
[2016-05-31] MEDS ORDERED: ACETAMINOPHEN TAB 325 MG TAB PO PRN (09:50)
[2016-05-31] MEDS ORDERED: HYDROcodone/APAP 5-325MG 1 EACH TAB PO PRN (09:50)
[2016-05-31] MEDS: SODIUM CHLORIDE 0.9% 1,000 ML IV ONE ×2 (10:05→16:17)
[2016-05-31] MEDS ORDERED: HEPARIN SODIUM,PORCINE 10,000 UNIT in SODIUM CHLORIDE 0.9% 1,000 ML IRRIGATION ONE (10:07)
[2016-05-31] MEDS ORDERED: HEPARIN SODIUM (1,000 UNIT/ML) 1,000 UNIT in SODIUM CHLORIDE 0.9% 1,000 ML IRRIGATION ONE (10:07)
[2016-05-31] MEDS ORDERED: PHENYLEPHRINE 10 MG/ML VIAL IV ONE (10:26)
[2016-05-31 10:30] LABS: Glucose,Whole Blood 127 mg/dL (75-99)
[2016-05-31] MEDS ORDERED: DOPamine DRIP 800 MG in DEXTROSE/WATER 1 500ML.BAG IV ONE (11:02)
[2016-05-31 11:14] LABS: Anisocytosis Slight; Basophils % (A) 0 %; CH 30.5; CHCM 30.5; Eosinophils # (A) 0.1 k/uL (0-0.7); Eosinophils % (A) 1 %; HCT 30.6 % (39.0-53.0); HDW 3.36; HGB 9.4 gm/dL (13.0-17.5); Hypochromasia Marked; Luc # (Auto) 0.07; Luc % (Auto) 1; Lymphocytes # (A) 1.1 k/uL (1.0-4.8); Lymphocytes % (A) 11 %; MCHC 30.8 g/dL (31.0-37.0); MCV 100.5 fL (80.0-100.0); Macrocytosis Slight; Mean Platelet Volume 8.8; Monocytes # (A) 0.4 k/uL (0-1.0); Monocytes % (A) 3 %; Neutrophils % (A) 84 %; RBC 3.05 m/uL (4.30-5.90); RDW 16.7 % (11.5-15.5); WBC 10.7 k/uL (3.8-10.6); WBC (Perox) 11.28
[2016-05-31 11:18] LABS: Glucose,Whole Blood 109 mg/dL (75-99)
[2016-05-31 11:47] LABS: ALT 55 U/L (21-72); AST 36 U/L (17-59); Alkaline Phosphatase 113 U/L (38-126); Anion Gap 9 mmol/L; Blood Urea Nitrogen 54 mg/dL (9-20); Calcium 7.5 mg/dL (8.4-10.2); Carbon Dioxide 28 mmol/L (22-30); Chloride 102 mmol/L (98-107); Non-African American GFR(MDRD) >60 (>60 ml/min/1.73 sqM); Potassium 4.4 mmol/L (3.5-5.1); Sodium 139 mmol/L (137-145); Total Bilirubin 0.9 mg/dL (0.2-1.3); Total Protein 4.7 g/dL (6.3-8.2)
[2016-05-31 11:49] LABS: Glucose 106 mg/dL (74-99)
[2016-05-31 11:53] LABS: Anisocytosis Slight; Basophils % (A) 0 %; CH 30.3; CHCM 30.3; Eosinophils # (A) 0.1 k/uL (0-0.7); Eosinophils % (A) 1 %; HCT 26.3 % (39.0-53.0); HDW 3.35; Hypochromasia Marked; Luc # (Auto) 0.07; Luc % (Auto) 1; Lymphocytes # (A) 0.9 k/uL (1.0-4.8); Lymphocytes % (A) 12 %; MCH 30.5 pg (25.0-35.0); MCHC 30.3 g/dL (31.0-37.0); MCV 100.5 fL (80.0-100.0); Macrocytosis Slight; Mean Platelet Volume 8.2; Monocytes # (A) 0.3 k/uL (0-1.0); Monocytes % (A) 4 %; Neutrophils # (A) 6.2 k/uL (1.3-7.7); Neutrophils % (A) 82 %; RBC 2.61 m/uL (4.30-5.90); RDW 16.9 % (11.5-15.5); WBC 7.6 k/uL (3.8-10.6); WBC (Perox) 7.83
--- NOTE | 2016-05-31 11:56 | US ---
EXAMINATION TYPE: US abdomen limited DATE OF EXAM: 05/31/2016 11:04 AM COMPARISON: EXAMINATION TYPE: US abdomen limited DATE OF EXAM: 05/31/2016 11:04 AM COMPARISON: NONE CLINICAL HISTORY: Evaluate right abd and thigh for hematoma following ep procedure. TECHNOLOGIST IMPRESSION: Right abd scanned from groin to kidney, also upper thigh. No collection of fluid seen IMPRESSION: NO EVIDENCE OF A POSTPROCEDURAL HEMATOMA OR FREE FLUID. CLINICAL HISTO RY: US.
[2016-05-31 12:19] LABS: Manual Review Performed
[2016-05-31 12:20] LABS: Toxic Granulation Present
[2016-05-31] MEDS: guaiFENesin 600 MG TABLET.ER PO SCH ×2 (12:57→22:30)
[2016-05-31] MEDS: POTASSIUM CHLORIDE ER 20 MEQ TAB.ER PO SCH (12:57)
[2016-05-31 13:20] LABS: Glucose,Whole Blood 94 mg/dL (75-99)
[2016-05-31] MEDS: SODIUM CHLORIDE 0.9% 1,000 ML IV SCH ×2 (13:27→17:30)
[2016-05-31] MEDS ORDERED: DEXTROSE 5% IN WATER 250 ML IV ONE (14:35)
[2016-05-31 14:38] LABS: Glucose,Whole Blood 83 mg/dL (75-99)
[2016-05-31] MEDS ORDERED: DEXTROSE 5% IN WATER 1,000 ML IV ONE (15:21)
[2016-05-31 15:22] LABS: Glucose,Whole Blood 100 mg/dL (75-99)
--- NOTE | 2016-05-31 15:38 | P.CNPUL ---
History of Present Illness Consult date: 05/31/16 Reason for consult: other (ICU management, hypotension) Chief complaint: weakness, fatigue History of present illness: This is a 66-year-old male who presented emergency department complaining of weakness and fatigue. patient is seen and examined in the PACU. The patient has an extensive medical history including atrial fibrillation and recent CABG and aortic valve replacement on 04/22/2016. the patient was found to be in atrial fibrillation with rapid ventricular rate. The patient had previous cardioversions and is also on amiodarone. He was subsequently taken for ablation. The patient remained hypotensive and was started on dopamine. The patient has also had intermittent hypoglycemia. He has known diabetes mellitus type 2 takes Lantus as well as Humalog at home. The patient's blood sugar has been in the 40s. He was started on D5W. His blood sugars are now running 100- 120. The patient states that he feels okay. He denies pain. He denies shortness of breath and chest pain at this time. Review of Systems All systems: negative Past Medical History Past Medical History: Atrial Fibrillation, Coronary Artery Disease (CAD), Chest Pain / Angina, COPD, Diabetes Mellitus, GERD/Reflux, Hyperlipidemia, Hypertension, Myocardial Infarction (NM), Osteoarthritis (OA), Pneumonia, Prostate Disorder, Respiratory Disorder, Vascular Disorder Additional Past Medical History / Comment(s): Severe left ventricular dysfunction, pulmonary fibrosis, gout, BPH Last Myocardial Infarction Date:: 03/2016 History of Any Multi-Drug Resistant Organisms: MRSA Date of last positivie culture/infection: 04/12/16 MDRO Source:: NASAL Past Surgical History: Coronary Bypass/CABG, Heart Catheterization Additional Past Surgical History / Comment(s): Nasal polyps, left heart catheterization, quadruple bypass 04/2016, cardioversions x 2. Past Anesthesia/Blood Transfusion Reactions: No Reported Reaction Past Psychological History: No Psychological Hx Reported Additional Psychological History / Comment(s): Pt currently is staying at [facility] for rehab. He states he was up walking short distances with a walker. He used to do metallurgy work. Smoking Status: Former smoker Past Alcohol Use History: Daily Additional Past Alcohol Use History / Comment(s): pt used to drink 2 beers daily but. pt has been at [facility] for rehab so no alochol use there. Pt started smoking in 1972 and quit in March 2016. Past Drug Use History: None Reported - Past Family History Mother Family Medical History: Diabetes Mellitus, Myocardial Infarction (NM) Additional Family Medical History / Comment(s): Mother had her first NM at the age of 35ys. She of a NM at the age of 62yrs. Father Family Medical History: Cancer Additional Family Medical History / Comment(s): Father had colon and prostate cancer. He at the age of 89yrs. Brother(s) Family Medical History: Hypertension Sister(s) Family Medical History: No Reported History Son(s) Family Medical History: No Reported History Medications and Allergies Home Medications Medication Instructions Recorded Confirmed Type Allopurinol [Zyloprim] 100 mg PO DAILY PRN 04/22/16 05/30/16 History Atorvastatin [Lipitor] 40 mg PO HS 05/18/16 05/30/16 History Multivitamins, Thera [Multivitamin] 1 tab PO QAM 05/18/16 05/30/16 History Sennosides [Senna] 17.2 mg PO HS 05/18/16 05/30/16 History Amino Acids/Protein Hydrolys 30 ml PO BID 05/30/16 05/30/16 History [Pro-Stat Supplement] Carvedilol [Coreg] 3.125 mg PO Q12H 05/30/16 05/30/16 History Ferrous Sulfate [Iron (65 MG 325 mg PO QAM 05/30/16 05/30/16 History Elemental)] INSULIN LISPRO (humaLOG) [HumaLOG] 2 units SQ BID@1130,1630 05/30/16 05/30/16 History INSULIN LISPRO (humaLOG) [humaLOG 3 unit SQ AC-BRKFST 05/30/16 05/30/16 History (formulary)] Melatonin 3 mg PO HS 05/30/16 05/30/16 History Nystatin 100,000 Unit/ml Susp 5 ml PO Q6H PRN 05/30/16 05/30/16 History [Mycostatin Oral Susp] Potassium Chloride [K-Tab ER] 20 meq PO DAILY 05/30/16 05/30/16 History QUEtiapine [SEROquel] 12.5 mg PO HS 05/30/16 05/30/16 History predniSONE See Taper PO DAILY 05/30/16 05/30/16 History Allergies Allergy/AdvReac Type Severity Reaction Status Date / Time No Known Allergies Allergy Verified 05/30/16 07:09 Physical Exam Osteopathic Statement: *. No significant issues noted on an osteopathic structural exam other than those noted in the History and Physical/Consult. Vitals: Vital Signs Temp Pulse Pulse Pulse Pulse Resp BP 05/31/16 14:45 78 16 05/31/16 14:32 75 16 05/31/16 14:15 72 16 05/31/16 14:00 75 16 05/31/16 13:45 63 16 05/31/16 13:18 61 16 05/31/16 12:59 63 14 05/31/16 12:48 65 16 05/31/16 12:34 62 16 05/31/16 12:13 63 18 05/31/16 11:53 62 18 05/31/16 11:41 64 18 05/31/16 11:30 63 16 05/31/16 11:15 62 18 05/31/16 11:06 56 L 14 05/31/16 10:52 57 L 16 05/31/16 10:40 56 L 16 05/31/16 10:30 57 L 16 05/31/16 10:20 55 L 16 05/31/16 10:15 56 L 16 05/31/16 10:10 96.9 F L 66 16 05/31/16 04:00 97.1 F L 115 H 20 05/31/16 00:00 126 H 18 05/30/16 21:19 88 05/30/16 21:08 88 05/30/16 20:32 98 F 128 H 20 103/60 05/30/16 20:00 97.2 F L 128 H 20 05/30/16 19:30 126 H 20 107/61 05/30/16 18:18 129 H 18 96/59 05/30/16 15:44 127 H 18 105/63 05/30/16 15:02 16 BP Pulse Ox 05/31/16 14:45 116/56 95 05/31/16 14:32 120/57 95 05/31/16 14:15 122/59 93 L 05/31/16 14:00 117/58 92 L 05/31/16 13:45 101/55 94 L 05/31/16 13:18 70/42 97 01/04/17 12:59 90/48 96 05/31/16 12:48 86/47 94 L 05/31/16 12:34 88/44 96 05/31/16 12:13 77/46 98 05/31/16 11:53 86/51 95 05/31/16 11:41 94/47 94 L 05/31/16 11:30 91/47 94 L 05/31/16 11:15 81/44 95 05/31/16 11:06 68/40 96 05/31/16 10:52 76/45 96 05/31/16 10:40 80/49 98 05/31/16 10:30 100/57 94 L 05/31/16 10:20 76/45 99 05/31/16 10:15 83/49 95 05/31/16 10:10 92/50 93 L 05/31/16 04:00 116/71 94 L 05/31/16 00:00 107/65 94 L 05/30/16 21:19 05/30/16 21:08 05/30/16 20:32 97 05/30/16 20:00 119/61 96 05/30/16 19:30 97 05/30/16 18:18 97 05/30/16 15:44 92 L 05/30/16 15:02 Intake and Output 05/30/16 05/31/16 05/31/16 22:59 06:59 14:59 Intake Total 209 Output Total 700 Balance -700 2091 Intake: IV 2090 Output: Urine 700 Other: # Voids 1 Weight 86 kg 86 kg Patient Weight 06/01/16 06:59 Weight 86 kg Gen.: Patient is still sedated from the procedure, however he is arousable to verbal and tactile stimuli Cardiovascular: Regular rate and rhythm, S1/S2 Lungs: Diminished breath sounds bilaterally with scattered crackles Abdomen: Soft nontender nondistended positive bowel sounds Extremities: No edema, multiple areas of ecchymosis noted Results - Laboratory Findings CBC and BMP: 05/31/16 11:30 05/31/16 11:30 PT/INR, D-dimer PT 12.6 sec (9.0-12.0) H 05/30/16 00:35 INR 1.3 (<1.1) 05/30/16 00:35 Abnormal lab findings: Abnormal Labs 05/30/16 05/30/16 05/30/16 06:56 12:41 22:08 WBC RBC Hgb Hct MCV MCHC RDW Plt Count Neutrophils # Lymphocytes # BUN Glucose POC Glucose (mg/dL) 296 H Calcium Total Creatine Kinase <20 L <20 L CK-MB (CK-2) 2.6 H* Troponin I 0.074 H* 0.075 H* Total Protein Albumin HDL Cholesterol 05/31/16 05/31/16 05/31/16 06:04 06:04 07:10 WBC 10.7 H RBC 3.05 L Hgb 9.4 L Hct 30.6 L MCV 100.5 H MCHC 30.8 L RDW 16.7 H Plt Count 118 L Neutrophils # 9.0 H Lymphocytes # BUN Glucose POC Glucose (mg/dL) 45 L Calcium Total Creatine Kinase CK-MB (CK-2) Troponin I Total Protein Albumin HDL Cholesterol 39 L 05/31/16 05/31/16 05/31/16 07:40 08:43 09:38 WBC RBC Hgb Hct MCV MCHC RDW Plt Count Neutrophils # Lymphocytes # BUN Glucose POC Glucose (mg/dL) 143 H 126 H 122 H Calcium Total Creatine Kinase CK-MB (CK-2) Troponin I Total Protein Albumin HDL Cholesterol 05/31/16 05/31/16 05/31/16 10:20 11:14 11:30 WBC RBC 2.61 L Hgb 8.0 L Hct 26.3 L MCV 100.5 H MCHC 30.3 L RDW 16.9 H Plt Count 99 L Neutrophils # Lymphocytes # 0.9 L BUN Glucose POC Glucose (mg/dL) 127 H 109 H Calcium Total Creatine Kinase CK-MB (CK-2) Troponin I Total Protein Albumin HDL Cholesterol 05/31/16 11:30 WBC RBC Hgb Hct MCV MCHC RDW Plt Count Neutrophils # Lymphocytes # BUN 54 H Glucose 106 H POC Glucose (mg/dL) Calcium 7.5 L Total Creatine Kinase CK-MB (CK-2) Troponin I Total Protein 4.7 L Albumin 2.3 L HDL Cholesterol - Diagnostic Findings Chest x-ray: report reviewed, image reviewed Assessment and Plan Plan: Hypotension, possibly cardiogenic shock Acute exacerbation of CHF, diastolic, ejection fraction 45-50% Atrial fibrillation with rapid ventricular rate, status post ablation Pulmonary edema on CXR Small pericardial effusion Hypoglycemic reaction, Hx DM2 Coronary artery disease, status post CABG and aortic valve replacement Hx hypertension Dyslipidemia COPD Pulmonary fibrosis with prior exposure to asbestos Anemia, macrocytic Thrombocytopenia O2 to maintain saturation greater than equal to 88% Diuresis: Lasix 40mg IV Q12 hours Continue D5W until BS improves Dopamine gtt Accuchecks Q1 hour CXR now AM CXR, CBC, CMP I's and O's and daily weights GI and DVT prophylaxis: Eliquis, Protonix Monitor blood pressure CBC now Abdominal U/S shows no retroperitoneal hematoma Cardiology recommendations Hold all hypoglycemic medications Patient to be transferred to ICU
[2016-05-31] MEDS: DOPamine DRIP 800 MG in DEXTROSE/WATER 1 500ML.BAG IV SCH (15:45)
[2016-05-31] MEDS: MULTIVITAMINS, THERA 1 EACH TAB PO SCH (16:18)
[2016-05-31] MEDS: FERROUS SULFATE 325 MG TAB PO SCH (16:18)
[2016-05-31] MEDS: THIAMINE 100 MG TAB PO SCH ×2 (16:18→18:36)
--- NOTE | 2016-05-31 16:30 | P.PN ---
Subjective This is a 66-year-old gentleman who is followed by Dr. Chaitanya Parr on an outpatient basis. On 04/22/2016 the patient presented to the emergency department at [facility], with complaints of dyspnea. The patient denied complaints of any chest pain, and nausea. On presentation to the emergency department at [facility], a 12-lead EKG was completed which showed him to have some ST elevation in his inferior leads. Subsequently, this patient was seen and examined by Dr. Scherer from [facility] and the patient was transferred to [facility] for further evaluation and workup. The patient was admitted to the hospital and underwent an urgent cardiac catheterization by Dr. Scherer, which demonstrated the patient to have a totally occluded right coronary artery, 80% stenosis to a circumflex coronary artery, a 90% stenosis to his proximal left anterior descending coronary artery, and a 60 % stenosis to his mid left anterior descending coronary artery. The patient also underwent a 2-D echocardiogram, which demonstrated mild concentric left ventricular hypertrophy, mild mitral regurgitation, mild tricuspid regurgitation , an overall left ventricular systolic function severely impaired with an ejection fraction of 25-30%, [id number] aortic stenosis with mitral aortic regurgitation, and a peak/mean gradient across the aortic valve of 42.44 mmHg and 22.56 mmHg. The above-mentioned studies were reviewed with the patient by Dr. Scherer and by Dr. Hardy and an urgent coronary artery bypass grafting surgery with aortic valve replacement was done using QUEZADA to LAD saphenous venous graft to the diagonal branch, SVG to the obtuse marginal branch , and 7 as well as SVG to the RCA, along with aortic valve bioprosthesis, his hospital course was completed by acute bronchitis with Serratia marcescens as well as tachybradycardia syndrome and eventually he was transferred to [facility] for physical therapy rehabilitation. Patient was readmitted to [facility] on May 18 for atrial flutter with rapid ventricular response and underwent cardioversion on 2015. He was also treated for acute on chronic diastolic heart failure. He was discharged back to [facility] on May 24. Patient stated that he was in fine up until today when he started feeling short of breath and that he was feeling off with water. He was transferred to [facility] emergency center where he was found to have an elevated heart rate and again in atrial flutter. His blood pressure was low and he received fluid boluses of 1-1/2 L total. Troponins were 0.060, 0.074, 0.075. ProBNP was 5590. Urinalysis was negative. Patient was seen by cardiology with plan to have Dr. Peck evaluate for possible cardiac ablation. Patient is seen at this time in the emergency room as he is waiting for a [facility] care bed to be made 05/31: Patient was gone for EP study and ablation. Patient was noted to have decreased blood sugars this morning and received IV dextrose 50% followed by dextrose drip. After procedure, patient had hypotension which required vasopressors and patient was then transferred to the intensive care unit and consult requested with Dr. Marin. Objective - Vital Signs Vital signs: Vital Signs Temp 97.1 F L 05/31/16 04:00 Pulse 115 H 05/31/16 04:00 Resp 20 05/31/16 04:00 BP 116/71 05/31/16 04:00 Pulse Ox 94 L 05/31/16 04:00 Intake & Output 05/30/16 05/31/16 05/31/16 18:59 06:59 18:59 Intake Total 741 Output Total 700 Balance -700 741 Weight 86 kg Intake: IV 741 Output: Urine 700 Other: # Voids 1 - Labs CBC & Chem 7: 05/31/16 11:30 05/31/16 11:30 Labs: Abnormal Lab Results - Last 24 Hours (Table) 05/30/16 05/30/16 05/31/16 Range/Units 12:41 22:08 06:04 POC Glucose (mg/dL) 296 H (75-99) mg/dL Total Creatine Kinase <20 L (55-170) U/L CK-MB (CK-2) 2.6 H* (0.0-2.4) ng/mL Troponin I 0.075 H* (0.000-0.034) ng/mL HDL Cholesterol 39 L (40-60) mg/dL 05/31/16 05/31/16 05/31/16 Range/Units 07:10 07:40 08:43 POC Glucose (mg/dL) 45 L 143 H 126 H (75-99) mg/dL Total Creatine Kinase (55-170) U/L CK-MB (CK-2) (0.0-2.4) ng/mL Troponin I (0.000-0.034) ng/mL HDL Cholesterol (40-60) mg/dL 05/31/16 Range/Units 09:38 POC Glucose (mg/dL) 122 H (75-99) mg/dL Total Creatine Kinase (55-170) U/L CK-MB (CK-2) (0.0-2.4) ng/mL Troponin I (0.000-0.034) ng/mL HDL Cholesterol (40-60) mg/dL Microbiology - Last 24 Hours (Table) 05/30/16 06:29 Urine Culture - Preliminary Urine,Voided Assessment and Plan Plan: 1. Atrial flutter with rapid ventricular response with previous history of electrical cardioversions. Patient has been seen by cardiology. Continue amiodarone and eliquis. He did receive bolus dose of Cardizem but due to hypotension, Cardizem drip was not started. 2. Coronary artery disease status post coronary artery bypass graft with QUEZADA to LAD, SVG to the diagonal branch, SVG to obtuse marginal branch, SVG to RCA with severe LV dysfunction. 3. Moderate to severe aortic valve stenosis status post bioprosthetic aortic valve replacement. Stable at this point in time. 4. Hypertension. Currently hypotensive. Patient is normally on Coreg 3.125 mg every 12 hours, Lasix 20 mg daily, lisinopril 2.5 mg daily. Patient has been hypotensive and parameters in place for his antihypertensive medications. 5. Hyperlipidemia. Continue Lipitor. 6. Medical debility. Return to [facility] with the patient is more stable. 7. COPD currently stable. Continue albuterol as needed. 8. 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 9. Chronic diastolic heart failure, last ELIZABETH performed 05/09/2016 ejection fraction 45-50%. Continue Lasix 20 mg daily with potassium supplement. 7. Acute exacerbation of diastolic heart failure. Patient was started on Lasix 40 mg IV every 12 hours. 8. Diabetes mellitus type 2, uncontrolled with hypoglycemia. Patient is on D5W. Hypoglycemic medications are on hold. 9. Postprocedural hypotension, unexpected. Patient is currently on dopamine drip. Patient was transferred to the intensive care unit and consult with Dr. Marin. 10. DVT prophylaxis. Eliquis. 11. GI prophylaxis. Continue patient on Protonix 40 mg orally once every day. 12. Patient is full code. Discharge plan: Return to [facility] Impression and plan of care have been directed as dictated by the signing physician. Diane Young nurse practitioner acting as scribe for signing physician.
[2016-05-31 16:57] LABS: Anisocytosis Slight; Basophils % (A) 0 %; CH 30.7; CHCM 31.1; Eosinophils # (A) 0.2 k/uL (0-0.7); Eosinophils % (A) 2 %; HDW 3.47; HGB 9.1 gm/dL (13.0-17.5); Hypochromasia Marked; Luc # (Auto) 0.13; Luc % (Auto) 1; Lymphocytes # (A) 1.3 k/uL (1.0-4.8); Lymphocytes % (A) 13 %; MCH 31.1 pg (25.0-35.0); MCHC 31.4 g/dL (31.0-37.0); MCV 99.2 fL (80.0-100.0); Macrocytosis Slight; Mean Platelet Volume 7.6; Monocytes # (A) 0.4 k/uL (0-1.0); Monocytes % (A) 3 %; Neutrophils # (A) 8.5 k/uL (1.3-7.7); Neutrophils % (A) 81 %; Poikilocytosis Slight; RBC 2.92 m/uL (4.30-5.90); WBC 10.4 k/uL (3.8-10.6); WBC (Perox) 10.86
[2016-05-31] MEDS: TAMSULOSIN 0.4 MG CAP.ER.24H PO SCH (18:36)
[2016-05-31] MEDS: ALBUTEROL NEBULIZED 2.5 MG/3 ML INHALATION PRN (18:48)
[2016-05-31 20:31] LABS: Glucose,Whole Blood 149 mg/dL (75-99)
[2016-05-31] MEDS: SENNOSIDES 8.6 MG TAB PO SCH (20:46)
[2016-05-31] MEDS: QUEtiapine 25 MG TAB PO SCH (22:30)
[2016-05-31 22:32] LABS: Anisocytosis Slight; Basophils % (A) 0 %; CH 30.6; CHCM 31.1; Eosinophils # (A) 0.2 k/uL (0-0.7); Eosinophils % (A) 2 %; HCT 26.7 % (39.0-53.0); HDW 3.39; HGB 8.2 gm/dL (13.0-17.5); Hypochromasia Marked; Luc # (Auto) 0.06; Luc % (Auto) 1; Lymphocytes % (A) 11 %; MCH 30.4 pg (25.0-35.0); MCHC 30.7 g/dL (31.0-37.0); MCV 98.9 fL (80.0-100.0); Macrocytosis Slight; Mean Platelet Volume 7.8; Monocytes # (A) 0.3 k/uL (0-1.0); Monocytes % (A) 4 %; Neutrophils % (A) 83 %; RDW 16.7 % (11.5-15.5); WBC 9.6 k/uL (3.8-10.6); WBC (Perox) 9.85
[2016-05-31] MEDS: MELATONIN 3 MG TABLET PO SCH (22:32)
[2016-05-31] MEDS: ATORVASTATIN 40 MG TAB PO SCH (23:25)
[2016-05-31 23:37] LABS: Anion Gap 12 mmol/L; Blood Urea Nitrogen 52 mg/dL (9-20); Calcium 8.4 mg/dL (8.4-10.2); Carbon Dioxide 24 mmol/L (22-30); Chloride 102 mmol/L (98-107); Glucose 144 mg/dL (74-99); Magnesium 2.1 mg/dL (1.6-2.3); Non-African American GFR(MDRD) >60 (>60 ml/min/1.73 sqM); Potassium 4.8 mmol/L (3.5-5.1); Sodium 138 mmol/L (137-145)
[2016-05-31 23:54] LABS: Glucose,Whole Blood 149 mg/dL (75-99)
[2016-06-01] MEDS: FUROSEMIDE 10 MG/ML 4 ML VIAL IV SCH ×3 (00:36→20:41)
[2016-06-01 02:19] LABS: Anisocytosis Slight; Basophils % (A) 0 %; CH 30.7; CHCM 30.8; Eosinophils # (A) 0.1 k/uL (0-0.7); Eosinophils % (A) 1 %; HCT 26.2 % (39.0-53.0); HDW 3.34; Hypochromasia Marked; Luc # (Auto) 0.05; Luc % (Auto) 1; Lymphocytes # (A) 0.9 k/uL (1.0-4.8); Lymphocytes % (A) 12 %; MCH 30.5 pg (25.0-35.0); MCHC 30.4 g/dL (31.0-37.0); MCV 100.2 fL (80.0-100.0); Macrocytosis Slight; Mean Platelet Volume 8.8; Monocytes # (A) 0.4 k/uL (0-1.0); Monocytes % (A) 5 %; Neutrophils # (A) 6.7 k/uL (1.3-7.7); Neutrophils % (A) 81 %; RBC 2.62 m/uL (4.30-5.90); RDW 17.1 % (11.5-15.5); WBC 8.2 k/uL (3.8-10.6)
[2016-06-01 02:28] LABS: ALT 53 U/L (21-72); AST 38 U/L (17-59); Alkaline Phosphatase 113 U/L (38-126); Anion Gap 6 mmol/L; Blood Urea Nitrogen 47 mg/dL (9-20); Calcium 7.7 mg/dL (8.4-10.2); Carbon Dioxide 27 mmol/L (22-30); Chloride 100 mmol/L (98-107); Glucose 127 mg/dL (74-99); Magnesium 1.9 mg/dL (1.6-2.3); Non-African American GFR(MDRD) >60 (>60 ml/min/1.73 sqM); Phosphorous 3.8 mg/dL (2.5-4.5); Potassium 4.5 mmol/L (3.5-5.1); Sodium 133 mmol/L (137-145); Total Bilirubin 1.1 mg/dL (0.2-1.3); Total Protein 4.7 g/dL (6.3-8.2)
[2016-06-01] MEDS ORDERED: Magnesium Replacement Protocol 1 EACH MISC MISCELLANE PRN (02:39)
[2016-06-01 02:47] LABS: Glucose,Whole Blood 141 mg/dL (75-99)
[2016-06-01] MEDS: MAGNESIUM SULFATE-D5W PMX 1 GM in DEXTROSE/WATER 1 100ML.BAG IVPB SCH ×2 (03:09→04:20)
--- NOTE | 2016-06-01 07:43 | P.CRDCN ---
History of Present Illness Consult date: 05/30/16 Requesting physician: Wes Suárez Reason for Consult (text): atrial flutter, recurrent refreactory to medications and 2 CVns Consult reason: atrial flutter History of present illness: Electrophysiology consultation Called by Dr. salinas on May 30. All regarding this patient with tachycardia, recurrent drug refractory atrial flutter and very symptomatic still in the emergency room. She had seen the patient along with Dr. Suárez were requested and EP evaluation for ablation I saw the patient later in the evening of May 30 in the emergency room in room #24. He was complaining of weakness and fatigue blood pressure 93, 90, H 2 mmHg pulse rate 124 bpm. Further drop in blood pressure after IV Cardizem bolus He was lying in bed he was alert and oriented is complaining of palpitations and he is stating that he was just not feeling well for the last several days. No chest discomfort he did not appear to be short of breath although he stated he was somewhat short of breath. He looked weak and washed out. When he arrived to the emergency room his blood pressure was low and he received 1.5 L of fluids rate troponins are borderline NT proBNP was greater than 5000 UA was negative On examination He was tachycardic at that time at about 124 bpm underlying left bundle branch block. Blood pressure 93/58 and 90/53 mmHg ulcerate 124 beats a minute oxygen saturation 96% on 2 L nasal cannula respirations 18-20 nonlabored Heart sounds tachycardic S1 normal A2 was a crisp sound Murmurs none No lower extremity edema Abdomen was soft nontender I spoke to Dr. Suárez later that evening of the and suggested that I proceed with an atrial flutter ablation next morning rather than electrical cardioversion did patient has already been cardioverted he is been on amiodarone since surgery and he continues to have recurrent atrial flutter which is quite symptomatic and he has a low blood pressure. He was afebrile 98.4F White count was normal at 5.9 thousand hemoglobin 9.4 on admission neutrophil count normal platelets 105,000 sodium 135, potassium normal, BUN 62, creatinine 1.0, glucose elevated, liver functions normal, troponins borderline I spoke to the patient and his daughter regarding the procedure and explained the rationale for the procedure and that I would not proceed with cardioversion any further proceed directly with an atrial flutter ablation on the morning of May 31, 2016, since the patient is very symptomatic and was persistently hypotensive without any other clear-cut cause. I spoke to anesthesia and I rearranged the EP lab schedule. Past medical history coronary artery disease coronary artery bypass grafting, aortic valve replacement, atrial flutter with a rapid ventricular response, two separate elective cardioversions postoperatively, hypertension, diabetes adult onset, dyslipidemia Medication list was reviewed and includes lisinopril, carvedilol, ELIQUIS, diabetes medications, atorvastatin Past history of smoking Review of systems: No fever chills or rigors, no cough, phlegm or expectoration , no nausea, vomiting or diarrhea, no hematuria, dysuria, no musculoskeletal complaints, no strokes or seizures, no skin lesions. Patient's main complaint is weakness fatigue and a feeling of shortness of breath and not feeling well Impression Patient presenting with low blood pressure weakness fatigue complaints of shortness of breath but without respiratory distress Blood pressure between 80 and 90 mmHg in the emergency room received IV fluids Atrial tachycardia versus atrial flutter with a rapid ventricular response Recurrent arrhythmias despite oral amiodarone for greater than 1 month History of to elective cardioversions post coronary artery bypass grafting and atraumatic valve replacement Underlying left bundle branch block Cardiomyopathy Congestive heart failure, systolic with a history of acute exacerbation in April Adult-onset diabetes Dyslipidemia History of hypertension On appropriate medical treatment for cardio myopathy Anticoagulated for atrial fibrillation/atrial flutter This patient is quite symptomatic and his blood pressure is low. He is already failed drug therapy and he is had a recurrence despite 2 separate attempts at electrical cardioversion. I don't see the point in repeating an electrical cardioversion under anesthesia. I have recommended to the patient and his daughter that under the same form of anesthesia I would proceed with an atrial flutter ablation as a curative means for this condition. Hopefully his blood pressure issues resolve with this. Last time his cardio myopathy improved when he was in sinus rhythm He and his daughter were agreeable with the plan Past Medical History Past Medical History: Atrial Fibrillation, Coronary Artery Disease (CAD), Chest Pain / Angina, COPD, Diabetes Mellitus, GERD/Reflux, Hyperlipidemia, Hypertension, Myocardial Infarction (WI), Osteoarthritis (OA), Pneumonia, Prostate Disorder, Respiratory Disorder, Vascular Disorder Additional Past Medical History / Comment(s): Severe left ventricular dysfunction, pulmonary fibrosis, gout, BPH Last Myocardial Infarction Date:: 03/2016 History of Any Multi-Drug Resistant Organisms: MRSA Date of last positivie culture/infection: 04/12/16 MDRO Source:: NASAL Past Surgical History: Coronary Bypass/CABG, Heart Catheterization Additional Past Surgical History / Comment(s): Nasal polyps, left heart catheterization, quadruple bypass 04/2016, cardioversions x 2. Past Anesthesia/Blood Transfusion Reactions: No Reported Reaction Past Psychological History: No Psychological Hx Reported Additional Psychological History / Comment(s): Pt currently is staying at [facility] for rehab. He states he was up walking short distances with a walker. He used to do metallurgy work. Smoking Status: Former smoker Past Alcohol Use History: Daily Additional Past Alcohol Use History / Comment(s): pt used to drink 2 beers daily but. pt has been at [facility] for rehab so no alochol use there. Pt started smoking in 1972 and quit in March 2016. Past Drug Use History: None Reported - Past Family History Mother Family Medical History: Diabetes Mellitus, Myocardial Infarction (WI) Additional Family Medical History / Comment(s): Mother had her first WI at the age of 35ys. She of a WI at the age of 62yrs. Father Family Medical History: Cancer Additional Family Medical History / Comment(s): Father had colon and prostate cancer. He at the age of 89yrs. Brother(s) Family Medical History: Hypertension Sister(s) Family Medical History: No Reported History Son(s) Family Medical History: No Reported History Medications and Allergies Home Medications Medication Instructions Recorded Confirmed Type Allopurinol [Zyloprim] 100 mg PO DAILY PRN 04/22/16 05/30/16 History Atorvastatin [Lipitor] 40 mg PO HS 05/18/16 05/30/16 History Multivitamins, Thera [Multivitamin] 1 tab PO QAM 05/18/16 05/30/16 History Sennosides [Senna] 17.2 mg PO HS 05/18/16 05/30/16 History Amino Acids/Protein Hydrolys 30 ml PO BID 05/30/16 05/30/16 History [Pro-Stat Supplement] Carvedilol [Coreg] 3.125 mg PO Q12H 05/30/16 05/30/16 History Ferrous Sulfate [Iron (65 MG 325 mg PO QAM 05/30/16 05/30/16 History Elemental)] INSULIN LISPRO (humaLOG) [HumaLOG] 2 units SQ BID@1130,1630 05/30/16 05/30/16 History INSULIN LISPRO (humaLOG) [humaLOG 3 unit SQ AC-BRKFST 05/30/16 05/30/16 History (formulary)] Melatonin 3 mg PO HS 05/30/16 05/30/16 History Nystatin 100,000 Unit/ml Susp 5 ml PO Q6H PRN 05/30/16 05/30/16 History [Mycostatin Oral Susp] Potassium Chloride [K-Tab ER] 20 meq PO DAILY 05/30/16 05/30/16 History QUEtiapine [SEROquel] 12.5 mg PO HS 05/30/16 05/30/16 History predniSONE See Taper PO DAILY 05/30/16 05/30/16 History Allergies Allergy/AdvReac Type Severity Reaction Status Date / Time No Known Allergies Allergy Verified 05/30/16 07:09 Physical Exam Vitals: Vital Signs Temp Pulse Pulse Pulse Resp BP BP 06/01/16 06:00 65 16 97/49 06/01/16 05:45 62 16 87/43 06/01/16 05:30 65 97/54 06/01/16 05:15 84 97/54 06/01/16 05:00 65 98/57 06/01/16 04:45 66 98/57 06/01/16 04:30 64 92/49 06/01/16 04:15 65 92/49 06/01/16 04:00 97.5 F L 65 16 99/53 06/01/16 03:45 65 99/53 06/01/16 03:30 71 103/50 06/01/16 03:15 68 16 103/50 06/01/16 03:00 65 16 87/44 06/01/16 02:45 75 16 87/44 06/01/16 02:30 65 14 103/52 06/01/16 02:15 65 14 103/52 06/01/16 02:00 66 14 85/45 06/01/16 01:45 66 14 98/49 06/01/16 01:30 69 14 102/59 06/01/16 01:15 67 14 102/59 06/01/16 01:00 67 16 89/51 06/01/16 00:45 69 16 89/51 06/01/16 00:30 67 93/55 06/01/16 00:15 67 16 93/55 06/01/16 00:00 97 F L 68 16 100/53 05/31/16 23:45 69 16 100/53 05/31/16 23:30 70 16 100/48 05/31/16 23:15 70 16 100/48 05/31/16 23:08 69 16 96/47 05/31/16 23:00 70 16 96/47 05/31/16 22:45 69 16 96/47 05/31/16 22:30 73 16 98/54 05/31/16 22:15 73 16 98/54 05/31/16 22:00 70 16 82/46 05/31/16 21:45 70 16 82/46 05/31/16 21:30 71 16 97/52 05/31/16 21:15 70 16 97/52 05/31/16 21:00 70 16 99/53 05/31/16 20:45 72 16 99/53 05/31/16 20:30 72 16 113/52 05/31/16 20:15 73 16 113/52 05/31/16 20:00 97.5 F L 72 16 113/52 05/31/16 19:45 71 17 113/52 05/31/16 19:30 74 20 95/48 05/31/16 19:15 71 20 83/49 05/31/16 19:12 74 05/31/16 19:00 71 17 93/54 05/31/16 18:50 73 05/31/16 18:45 72 22 101/54 05/31/16 18:30 68 15 102/52 05/31/16 18:00 70 18 98/59 05/31/16 17:45 71 18 108/51 05/31/16 17:30 73 13 103/49 05/31/16 17:15 74 16 98/54 05/31/16 17:00 70 14 88/55 05/31/16 16:30 70 14 108/53 05/31/16 16:10 97.4 F L 72 14 98/58 05/31/16 15:59 05/31/16 15:50 77 27 H 138/63 05/31/16 15:45 18 05/31/16 15:08 73 16 116/56 05/31/16 14:45 78 16 116/56 05/31/16 14:32 75 16 120/57 05/31/16 14:15 72 16 122/59 05/31/16 14:00 75 16 117/58 05/31/16 13:45 63 16 101/55 05/31/16 13:18 61 16 70/42 05/31/16 12:59 63 14 90/48 05/31/16 12:48 65 16 86/47 05/31/16 12:34 62 16 88/44 05/31/16 12:13 63 18 77/46 05/31/16 11:53 62 18 86/51 05/31/16 11:41 64 18 94/47 05/31/16 11:30 63 16 91/47 05/31/16 11:15 62 18 81/44 05/31/16 11:06 56 L 14 68/40 05/31/16 10:52 57 L 16 76/45 05/31/16 10:40 56 L 16 80/49 05/31/16 10:30 57 L 16 100/57 05/31/16 10:20 55 L 16 76/45 05/31/16 10:15 56 L 16 83/49 05/31/16 10:10 96.9 F L 66 16 92/50 Pulse Ox 06/01/16 06:00 95 06/01/16 05:45 99 06/01/16 05:30 94 L 06/01/16 05:15 96 06/01/16 05:00 95 06/01/16 04:45 92 L 06/01/16 04:30 96 06/01/16 04:15 97 06/01/16 04:00 98 06/01/16 03:45 97 06/01/16 03:30 95 06/01/16 03:15 97 06/01/16 03:00 97 06/01/16 02:45 89 L 06/01/16 02:30 93 L 06/01/16 02:15 93 L 06/01/16 02:00 97 06/01/16 01:45 99 06/01/16 01:30 93 L 06/01/16 01:15 98 01/05/17 01:00 95 06/01/16 00:45 95 06/01/16 00:30 95 06/01/16 00:15 95 06/01/16 00:00 97 05/31/16 23:45 88 L 05/31/16 23:30 90 L 05/31/16 23:15 93 L 05/31/16 23:08 92 L 05/31/16 23:00 91 L 05/31/16 22:45 88 L 05/31/16 22:30 92 L 05/31/16 22:15 89 L 05/31/16 22:00 90 L 05/31/16 21:45 94 L 05/31/16 21:30 96 05/31/16 21:15 95 05/31/16 21:00 96 05/31/16 20:45 91 L 05/31/16 20:30 90 L 05/31/16 20:15 88 L 05/31/16 20:00 89 L 05/31/16 19:45 89 L 05/31/16 19:30 93 L 05/31/16 19:15 95 05/31/16 19:12 05/31/16 19:00 100 05/31/16 18:50 05/31/16 18:45 92 L 05/31/16 18:30 95 05/31/16 18:00 95 05/31/16 17:45 95 05/31/16 17:30 95 05/31/16 17:15 95 05/31/16 17:00 96 05/31/16 16:30 96 05/31/16 16:10 93 L 05/31/16 15:59 93 L 05/31/16 15:50 96 05/31/16 15:45 94 L 05/31/16 15:08 94 L 05/31/16 14:45 95 05/31/16 14:32 95 05/31/16 14:15 93 L 05/31/16 14:00 92 L 05/31/16 13:45 94 L 05/31/16 13:18 97 05/31/16 12:59 96 05/31/16 12:48 94 L 05/31/16 12:34 96 05/31/16 12:13 98 05/31/16 11:53 95 05/31/16 11:41 94 L 05/31/16 11:30 94 L 05/31/16 11:15 95 05/31/16 11:06 96 05/31/16 10:52 96 05/31/16 10:40 98 05/31/16 10:30 94 L 05/31/16 10:20 99 05/31/16 10:15 95 05/31/16 10:10 93 L Intake and Output 05/31/16 06/01/16 06/01/16 22:59 06:59 14:59 Intake Total 682.93 1014.5 Output Total 825 950 Balance -142.07 64.5 Intake: Intake, IV Titration 682.93 964.5 Amount DOPamine DRIP 800 mg In 20.03 Dextrose/Water 1 500ml. bag @ 5 MCG/KG/MIN 16.12 mls/hr IV .Q24H [facility] Rx#: [id number] DOPamine DRIP 800 mg In 62.9 64.5 Dextrose/Water 1 500ml. bag As IV .STK-MED ONE Rx #:[id number] Dextrose 5% in Water 1, 600 500 000 ml @ 100 mls/hr IV . Q10H [facility] Rx#:[id number] Magnesium Sulfate-D5w Pmx 400 1 gm In Dextrose/Water 1 100ml.bag @ 100 mls/hr IVPB Q1H [facility] Rx#: [id number] Oral 50 Output: Urine 825 950 Other: Voiding Method Indwelling Catheter Indwelling Catheter Weight 85 kg Results 06/01/16 02:05 06/01/16 02:05 Cardiac Enzymes 05/31/16 06/01/16 Range/Units 11:30 02:05 AST 36 38 (17-59) U/L CBC 05/31/16 05/31/16 05/31/16 Range/Units 06:04 11:30 16:40 WBC 10.7 H 7.6 10.4 (3.8-10.6) k/uL RBC 3.05 L 2.61 L 2.92 L (4.30-5.90) m/uL Hgb 9.4 L 8.0 L 9.1 L (13.0-17.5) gm/dL Hct 30.6 L 26.3 L 29.0 L (39.0-53.0) % Plt Count 118 L 99 L 104 L (150-450) k/uL 05/31/16 06/01/16 Range/Units 22:25 02:05 WBC 9.6 8.2 (3.8-10.6) k/uL RBC 2.70 L 2.62 L (4.30-5.90) m/uL Hgb 8.2 L 8.0 L (13.0-17.5) gm/dL Hct 26.7 L 26.2 L (39.0-53.0) % Plt Count 94 L 84 L (150-450) k/uL Comprehensive Metabolic Panel 05/31/16 05/31/16 06/01/16 Range/Units 11:30 22:25 02:05 Sodium 139 138 133 L (137-145) mmol/L Potassium 4.4 4.8 4.5 (3.5-5.1) mmol/L Chloride 102 102 100 (98-107) mmol/L Carbon Dioxide 28 24 27 (22-30) mmol/L BUN 54 H 52 H 47 H (9-20) mg/dL Creatinine 1.03 0.90 0.80 (0.66-1.25) mg/dL Glucose 106 H 144 H 127 H (74-99) mg/dL Calcium 7.5 L 8.4 7.7 L (8.4-10.2) mg/dL AST 36 38 (17-59) U/L ALT 55 53 (21-72) U/L Alkaline Phosphatase 113 113 (38-126) U/L Total Protein 4.7 L 4.7 L (6.3-8.2) g/dL Albumin 2.3 L 2.5 L (3.5-5.0) g/dL Current Medications Generic Name Dose Route Start Last Admin Trade Name Freq PRN Reason Stop Dose Admin Acetaminophen 650 mg 05/31/16 09:50 Tylenol Tab PO Q6HR PRN Mild Pain Acetaminophen/Hydrocodone Bitart 1 each 05/31/16 09:50 [place] 5-325 PO Q4HR PRN Moderate Pain Albuterol Sulfate 2.5 mg 05/30/16 14:59 05/31/16 18:48 Ventolin Nebulized INHALATION 2.5 mg RT-QID PRN Administration wheezing Allopurinol 100 mg 05/30/16 14:53 Zyloprim PO DAILY PRN Gout Flareup Amiodarone HCl 100 mg 06/01/16 09:00 Cordarone PO DAILY [facility] Apixaban 5 mg 05/30/16 10:30 05/31/16 20:44 Eliquis PO Not Given BID [facility] Aspirin 81 mg 05/30/16 10:30 05/31/16 05:09 Aspirin PO 81 mg DAILY [facility] Administration Atorvastatin Calcium 40 mg 05/30/16 21:00 05/31/16 23:25 Lipitor PO 40 mg HS [facility] Administration Bisacodyl 10 mg 05/30/16 14:53 Dulcolax RECTAL DAILY PRN Constipation Budesonide 0.5 mg 05/30/16 20:00 05/31/16 18:48 Pulmicort INHALATION 0.5 mg RT-BID [facility] Administration Ferrous Sulfate 325 mg 05/31/16 12:00 05/31/16 16:18 Feosol PO Not Given 1200 [facility] Furosemide 40 mg 05/31/16 21:00 06/01/16 00:36 Lasix IV Not Given Q12HR [facility] Guaifenesin 600 mg 05/30/16 21:00 05/31/16 22:30 Mucinex PO 600 mg Q12HR [facility] Administration Sodium Chloride 1,000 mls @ 20 mls/hr 05/30/16 17:45 05/31/16 17:30 Saline 0.9% IV Not Given .Q24H [facility] Dopamine HCl/Dextrose 800 mg/ 500 mls @ 16.12 mls/hr 05/31/16 11:15 05/31/16 16:00 IV Solution IV 4 mcg/kg/min .Q24H [facility] 12.9 mls/hr 5 MCG/KG/MIN Infusion Insulin Glargine 25 unit 05/30/16 21:00 05/30/16 22:15 Lantus SQ 25 unit HS [facility] Administration Insulin Human Lispro 2 unit 05/30/16 16:30 05/31/16 16:18 Humalog SQ Not Given BID@1130,1630 [facility] Insulin Human Lispro 3 unit 05/31/16 07:30 05/31/16 07:15 Humalog SQ Not Given AC-BRKFST [facility] Insulin Human Lispro 0 unit 05/30/16 17:30 05/31/16 16:18 Humalog SQ Not Given ACHS [facility] Protocol Melatonin 3 mg 05/30/16 21:00 05/31/16 22:32 Melatonin PO Not Given HS [facility] Miscellaneous Information 1 each 06/01/16 02:39 Magnesium Per Protocol MISCELLANE DAILY PRN Per Protocol Protocol Multivitamins 1 each 05/31/16 12:00 05/31/16 16:18 Theragran PO Not Given 1200 [facility] Nitroglycerin 0.4 mg 05/30/16 03:15 Nitrostat SUBLINGUAL Q5M PRN Chest Pain Pantoprazole Sodium 40 mg 05/31/16 07:30 05/31/16 08:23 Protonix PO Not Given AC-BRKFST [facility] Potassium Chloride 20 meq 05/31/16 09:00 05/31/16 12:57 K-Dur 20 PO Not Given DAILY [facility] Quetiapine Fumarate 12.5 mg 05/30/16 21:00 05/31/16 22:30 Seroquel PO 12.5 mg HS [facility] Administration Senna 17.2 mg 05/30/16 21:00 05/31/16 20:46 Senokot PO Not Given HS [facility] Sodium Chloride 12 ml 05/31/16 21:00 05/31/16 20:46 Saline Flush IV Not Given Q12HR [facility] Tamsulosin HCl 0.4 mg 05/30/16 18:30 05/31/16 18:36 Flomax PO 0.4 mg PC-SUPPER [facility] Administration Thiamine HCl 100 mg 05/30/16 17:00 05/31/16 18:36 Vitamin B-1 PO 100 mg BID@1200,1700 [facility] Administration Tramadol HCl 50 mg 05/30/16 14:53 Ultram PO Q6H PRN Moderate Pain Intake and Output 05/31/16 06/01/16 06/01/16 22:59 06:59 14:59 Intake Total 682.93 1014.5 Output Total 825 950 Balance -142.07 64.5 Intake: Intake, IV Titration 682.93 964.5 Amount DOPamine DRIP 800 mg In 20.03 Dextrose/Water 1 500ml. bag @ 5 MCG/KG/MIN 16.12 mls/hr IV .Q24H [facility] Rx#: [id number] DOPamine DRIP 800 mg In 62.9 64.5 Dextrose/Water 1 500ml. bag As IV .STK-MED ONE Rx #:[id number] Dextrose 5% in Water 1, 600 500 000 ml @ 100 mls/hr IV . Q10H [facility] Rx#:[id number] Magnesium Sulfate-D5w Pmx 400 1 gm In Dextrose/Water 1 100ml.bag @ 100 mls/hr IVPB Q1H [facility] Rx#: [id number] Oral 50 Output: Urine 825 950 Other: Voiding Method Indwelling Catheter Indwelling Catheter Weight 85 kg 06/01/16 02:05 06/01/16 02:05
[2016-06-01] MEDS: PANTOPRAZOLE 40 MG TABLET PO SCH (07:52)
[2016-06-01] MEDS: AMIODARONE 100 MG TAB PO SCH (07:53)
[2016-06-01] MEDS: guaiFENesin 600 MG TABLET.ER PO SCH (07:53)
[2016-06-01] MEDS: ASPIRIN 81 MG CHEW PO SCH (07:53)
[2016-06-01] MEDS: POTASSIUM CHLORIDE ER 20 MEQ TAB.ER PO SCH (07:54)
[2016-06-01 07:57] LABS: Glucose,Whole Blood 98 mg/dL (75-99)
--- NOTE | 2016-06-01 08:02 | XR ---
EXAMINATION TYPE: XR chest 1V portable DATE OF EXAM: 06/01/2016 6:32 AM COMPARISON: Chest x-ray third of May 2016 HISTORY: Congestive heart failure TECHNIQUE: Single frontal view of the chest is obtained. FINDINGS: The heart is enlarged, patient is post median sternotomy. Interstitium is diffusely increa sed, there is mixed airspace disease. No evident pneumothorax or pleural effusion. There are overlyin g cardiac leads. IMPRESSION: Findings are compatible with patient's history of congestive heart failure.
[2016-06-01] MEDS: BUDESONIDE 0.5 MG/2 ML NEBU INHALATION SCH ×2 (08:06→20:04)
[2016-06-01] MEDS: ALBUTEROL NEBULIZED 2.5 MG/3 ML INHALATION PRN ×2 (08:06→20:04)
--- NOTE | 2016-06-01 08:06 | P.PCN ---
Preoperative Diagnosis: EP study and efficacy ablation procedure note Patient is scheduled to be brought him for an atrial flutter ablation on the morning of 31 May at about 7:30 in the morning Informed by the nurses that his blood sugar was low at about 45 I went to see him upstairs in his room. He was lying comfortably in bed. He had just received D50 and is feeling better Family members by his bedside No respiratory distress no orthopnea and no chest discomfort I asked the nurses to start D5 half normal saline maintain blood glucose Plan to proceed with EP study and atrial flutter ablation Upon arrival to the EP lab He is able to lie flat in bed. Alert and oriented No respiratory distress Systolic blood pressure 70 mmHg Later the blood sugar was retested and it was 124 Upon inspection of the groins there was bruising on the right thigh and induration just below the right groin. Femoral artery was febrile on the right side but was bounding on the left side. Venous access obtained. On venous access in the right femoral vein, 2 venous accesses in the left femoral vein Coronary sinus catheter placed from below. Organized atrial rhythm with a cycle length of about 254 ms, concentric activation Intracardiac echo catheter placed No intracardiac masses Left atrial appendage interrogated, no obvious masses 3-D anatomical mapping of the right atrium and right atrial isthmus Sub-eustachian pouch Very prominent eustachian ridge Small mid isthmus pouch Entrainment mapping attempted but non-capture in the right atrial isthmus 3-D mapping followed by atrial flutter ablation During RF application the arrhythmia terminated Following that a complete line of block was made from the tricuspid annulus to the eustachian ridge After completion of ablation Baseline measurements showed the R interval 195 ms, QRS 168 ms left bundle branch block, QT interval 360 ms, sinus cycle length 1125 ms AH 130 milliseconds, HV 52 ms Sinus node recovery time at 600 ms was 05/30/2002 milliseconds did AV node Wenckebach block 440 ms the slow pathway at 480 ms. VA Wenckebach block 570 ms Atrial ventricular pacing performed Prior to starting the case as well as administration of anesthesia him of the patient's blood pressure was 70 mmHg however he was remarkably comfortable was able to lie flat in bed no respiratory distress alert and oriented After termination of atrial flutter at a heart rate of about 50 beats a minute there was no significant improvement in his blood pressure Atrial pacing at 900 ms performed to see there is any change in blood pressure. Blood pressure did not show any significant improvement Procedure completed without any acute complications I spoke to Dr. salinas/cardiology team taking care of the patient I informed them that his blood pressure was persistently low despite conversion to sinus rhythm and normal heart rates. I would recommend stopping carvedilol and lisinopril continuing ELIQUIS However I was concerned with the bruising in his the high and his persistent low blood pressure and possibly a silent internal bleeding resulting in a low hemoglobin. I will recommend at least an ultrasound evaluation of the abdomen and the groins Late I was called by the nurse in the recovery room stating that his blood pressure was still 90 mmHg with the patient was alert and oriented no respiratory distress and comfortable and therefore I recommended low-dose dopamine, repeat CBC and BMP and further management per medical team's on 6 E. No acute complications from the procedure. The fact that his blood pressure did not improve after resumption of normal rhythm confirms there is a second reason for his hypertension on related to atrial flutter with RVR Intracardiac echo did demonstrate low left ventricle ejection fraction but minimal to no pericardial effusion Prior to removal of catheters intracardiac echo revealed absence of any significant pericardial effusion
--- NOTE | 2016-06-01 09:52 | ECHOF ---
Referral Reason:LOW BP DROP IN HGB MEASUREMENTS -------- HEIGHT: 175.3 cm WEIGHT: 85.7 kg BP: IVSd: 1.3 cm (0.6 - 1.1) LVIDd: 5.4 cm (3.9 - 5.3) LVPWd: 0.9 cm (0.6 - 1.1) IVSs: 1.4 cm LVIDs: 4.8 cm LVPWs: 0.9 cm Ao Diam: 2.4 cm (2.0 - 3.7) AV Cusp: 1.2 cm (1.5 - 2.6) LA Diam: 2.6 cm (2.7 - 3.8) MV EXCURSION: 21.171 mm (> 18.000) MV EF SLOPE: 140 mm/s (70 - 150) EPSS: 1.9 cm MV E Chivo: 1.13 m/s MV DecT: 146 ms MV A Chivo: 0.48 m/s MV E/A Ratio: 2.36 AV maxP.87 mmHg AV meanP.40 mmHg RAP: 5.00 mmHg RVSP: 26.29 mmHg FINDINGS -------- Sinus rhythm with extra systolic beats. This was a technically good study. There is mild concentric left ventricular hypertrophy. Overall left ventricular systolic function is moderately impaired with, an EF between 35 - 40 %. Mid to basal inferiorlateral is hypokinetic The right ventricle is normal in size and function. The left atrium is normal in size. The right atrium is normal in size. There is moderate aortic stenosis present. Peak/mean gradient across the Aortic Valve is 30.87mmHg / 17.40mmHg. The mitral valve leaflets are mildly thickened. Mild mitral regurgitation is present. Mild tricuspid regurgitation present. The right ventricular systolic pressure, as measured by Doppler, is 26.29mmHg. Trace/mild (physiologic) pulmonic regurgitation. The aortic root size is normal. There is a small, generalized pericardial effusion present. CONCLUSIONS -------- 1. Sinus rhythm with extra systolic beats. 2. Peak/mean gradient across the Aortic Valve is 30.87mmHg / 17.40mmHg. 3. The mitral valve leaflets are mildly thickened. 4. Mild mitral regurgitation is present. 5. Mild tricuspid regurgitation present. 6. The right ventricular systolic pressure, as measured by Doppler, is 26.29mmHg. 7. Trace/mild (physiologic) pulmonic regurgitation. 8. The aortic root size is normal. 9. There is a small, generalized pericardial effusion present. 10. This was a technically good study. 11. There is mild concentric left ventricular hypertrophy. 12. Overall left ventricular systolic function is moderately impaired with, an EF between 35 - 40 %. 13. Mid to basal inferiorlateral is hypokinetic 14. The right ventricle is normal in size and function. 15. The left atrium is normal in size. 16. The right atrium is normal in size. 17. There is moderate aortic stenosis present. [employer]: Shruthi Bradley RDCS
[2016-06-01 10:22] LABS: Anisocytosis Slight; Basophils % (A) 0 %; CH 30.9; CHCM 31.4; Eosinophils # (A) 0.3 k/uL (0-0.7); Eosinophils % (A) 2 %; HCT 25.9 % (39.0-53.0); HDW 3.35; HGB 8.3 gm/dL (13.0-17.5); Hypochromasia Moderate; Luc # (Auto) 0.11; Luc % (Auto) 1; Lymphocytes # (A) 1.4 k/uL (1.0-4.8); Lymphocytes % (A) 12 %; MCH 31.5 pg (25.0-35.0); MCHC 31.9 g/dL (31.0-37.0); MCV 98.8 fL (80.0-100.0); Macrocytosis Slight; Mean Platelet Volume 8.4; Monocytes # (A) 0.4 k/uL (0-1.0); Monocytes % (A) 4 %; Neutrophils # (A) 9.5 k/uL (1.3-7.7); Neutrophils % (A) 82 %; RBC 2.62 m/uL (4.30-5.90); RDW 17.1 % (11.5-15.5); WBC 11.6 k/uL (3.8-10.6); WBC (Perox) 11.97
[2016-06-01] MEDS: THIAMINE 100 MG TAB PO SCH ×2 (10:59→17:20)
[2016-06-01] MEDS: MULTIVITAMINS, THERA 1 EACH TAB PO SCH (10:59)
[2016-06-01] MEDS: FERROUS SULFATE 325 MG TAB PO SCH (10:59)
[2016-06-01] MEDS: DOPamine DRIP 800 MG in DEXTROSE/WATER 1 500ML.BAG IV SCH (11:00)
[2016-06-01 12:16] LABS: Glucose,Whole Blood 224 mg/dL (75-99)
[2016-06-01] MEDS: INSULIN LISPRO (humaLOG) 300 UNIT/3 ML VIAL SQ SCH ×2 (12:31→17:24)
[2016-06-01] MEDS: APIXABAN 5 MG TAB PO SCH ×2 (12:38→12:46)
--- NOTE | 2016-06-01 13:14 | CDI ---
In responding to this query, please exercise your independent professional judgment. The [facility] Coding Staff and Clinical Documentation Specialists appreciate your assistance in clarifying documentation, maintaining compliance with coding guidelines, accurately documenting patients condition and capturing severity of illness. The fact that a question is asked does not imply that any particular answer is desired or expected. Communication forms are a method of clarifying documentation and are not made part of the Legal Health Record. Thank you in advance for your clarification. Last Revision, March 2015 Sandie Avitia [address] [place] [address] Documentation Clarification Form Date: 06/01/2016 12:34:00 PM From: Adali Cooper RN, CCDS Admit Date: 05/30/2016 3:18:00 AM Patient Name: Jayson Yang Visit Number: [id number] Dr. Jasiel Peck Atrial Flutter is documented in the H&P, Cardiology Consult, and Ep Consult. History/Risk factors: Cabg w AVR, recurrent atrial flutter refractory to meds and cardioversion, CAD, Diastolic CHF, Cardiomyopathy with previous improvement after atrial flutter cardioversion Clinical Indicators: 06/01 EP Consult: "patient has already been cardioverted he is been on Amiodarone since surgery and he continues to have recurrent atrial flutter which is quite symptomatic and he has a low blood pressure. EKG/telemetry: 05/30 Cardiology Consult: "EKG on admission here showed atrial flutter, with left bundle-branch block pattern. He continues to be in an atrial flutter this morning with a heart rate in the 120s to 130s. Chest x-ray on admission revealed congestive cardiac failure with evidence of pulmonary edema.' Treatment: Consults: Cardiology & EP Atrial Flutter Ablation on 05/30 In your professional opinion, can you please clarify the type of atrial flutter if known? Typical/Type I Atypical/Type II Other, please specify Unable to determine Please document in your progress notes and discharge summary in order to capture severity of illness and risk of mortality. Include clinical findings that support your diagnosis. FYI: Press F11 to launch patient chart Place X here if this finding has no clinical significance, is not applicable or if you are not able to provide any additional documentation. SHANNOND
--- NOTE | 2016-06-01 13:54 | P.PN ---
Subjective Principal diagnosis: Hypotension, atrial fibrillation Patient seen and examined in the ICU with nursing staff at bedside. Patient remains hypotensive and is on dopamine. The patient continues to have oozing from his procedure site. All classes on hold. The patient's blood sugars are now in the 200s. The patient has no complaints or needs. Objective - Vital Signs Vital signs: Vital Signs Temp 98.2 F 06/01/16 09:00 Pulse 71 06/01/16 11:00 Resp 16 06/01/16 08:00 BP 105/53 06/01/16 11:00 Pulse Ox 91 L 06/01/16 11:00 Intake & Output 05/31/16 06/01/16 06/01/16 18:59 06:59 18:59 Intake Total 2323.13 1465.3 645.10 Output Total 450 1325 750 Balance 1873.13 140.3 -104.90 Weight 86 kg 85 kg Intake: IV 2091 Intake, IV Titration 232.13 1415.3 645.10 Amount DOPamine DRIP 800 mg In 20.03 245.10 Dextrose/Water 1 500ml. bag @ 5 MCG/KG/MIN 16.12 mls/hr IV .Q24H [facility] Rx#: [id number] DOPamine DRIP 800 mg In 12.1 115.3 Dextrose/Water 1 500ml. bag As IV .[facility] Rx #:[id number] Dextrose 5% in Water 1, 200 900 400 000 ml @ 100 mls/hr IV . Q10H [facility] Rx#:[id number] Magnesium Sulfate-D5w Pmx 400 1 gm In Dextrose/Water 1 100ml.bag @ 100 mls/hr IVPB Q1H [facility] Rx#: [id number] Oral 50 Output: Urine 450 1325 750 Other: Voiding Method Indwelling Catheter Indwelling Catheter Indwelling Catheter - Exam Gen.: Patient is alert and oriented 3, no acute distress Cardiovascular: Regular rate and rhythm, S1/S2 Lungs: Diminished breath sounds bilaterally with scattered crackles Abdomen: Soft nontender nondistended positive bowel sounds Extremities: No edema, multiple areas of ecchymosis noted - Labs CBC & Chem 7: 06/01/16 09:00 06/01/16 02:05 Labs: Abnormal Lab Results - Last 24 Hours (Table) 05/31/16 05/31/16 05/31/16 Range/Units 06:08 15:20 16:40 WBC (3.8-10.6) k/uL RBC 2.92 L (4.30-5.90) m/uL Hgb 9.1 L (13.0-17.5) gm/dL Hct 29.0 L (39.0-53.0) % MCV (80.0-100.0) fL MCHC (31.0-37.0) g/dL RDW 17.0 H (11.5-15.5) % Plt Count 104 L (150-450) k/uL Neutrophils # 8.5 H (1.3-7.7) k/uL Lymphocytes # (1.0-4.8) k/uL Sodium (137-145) mmol/L BUN (9-20) mg/dL Glucose (74-99) mg/dL POC Glucose (mg/dL) 100 H (75-99) mg/dL Calcium (8.4-10.2) mg/dL Total Protein (6.3-8.2) g/dL Albumin (3.5-5.0) g/dL Crossmatch See Detail 05/31/16 05/31/16 05/31/16 Range/Units 20:29 22:25 22:25 WBC (3.8-10.6) k/uL RBC 2.70 L (4.30-5.90) m/uL Hgb 8.2 L (13.0-17.5) gm/dL Hct 26.7 L (39.0-53.0) % MCV (80.0-100.0) fL MCHC 30.7 L (31.0-37.0) g/dL RDW 16.7 H (11.5-15.5) % Plt Count 94 L (150-450) k/uL Neutrophils # 8.0 H (1.3-7.7) k/uL Lymphocytes # (1.0-4.8) k/uL Sodium (137-145) mmol/L BUN 52 H (9-20) mg/dL Glucose 144 H (74-99) mg/dL POC Glucose (mg/dL) 149 H (75-99) mg/dL Calcium (8.4-10.2) mg/dL Total Protein (6.3-8.2) g/dL Albumin (3.5-5.0) g/dL Crossmatch 05/31/16 06/01/16 06/01/16 Range/Units 23:53 02:05 02:05 WBC (3.8-10.6) k/uL RBC 2.62 L (4.30-5.90) m/uL Hgb 8.0 L (13.0-17.5) gm/dL Hct 26.2 L (39.0-53.0) % MCV 100.2 H (80.0-100.0) fL MCHC 30.4 L (31.0-37.0) g/dL RDW 17.1 H (11.5-15.5) % Plt Count 84 L (150-450) k/uL Neutrophils # (1.3-7.7) k/uL Lymphocytes # 0.9 L (1.0-4.8) k/uL Sodium 133 L (137-145) mmol/L BUN 47 H (9-20) mg/dL Glucose 127 H (74-99) mg/dL POC Glucose (mg/dL) 149 H (75-99) mg/dL Calcium 7.7 L (8.4-10.2) mg/dL Total Protein 4.7 L (6.3-8.2) g/dL Albumin 2.5 L (3.5-5.0) g/dL Crossmatch 06/01/16 06/01/16 06/01/16 Range/Units 02:46 09:00 12:14 WBC 11.6 H (3.8-10.6) k/uL RBC 2.62 L (4.30-5.90) m/uL Hgb 8.3 L (13.0-17.5) gm/dL Hct 25.9 L (39.0-53.0) % MCV (80.0-100.0) fL MCHC (31.0-37.0) g/dL RDW 17.1 H (11.5-15.5) % Plt Count 95 L (150-450) k/uL Neutrophils # 9.5 H (1.3-7.7) k/uL Lymphocytes # (1.0-4.8) k/uL Sodium (137-145) mmol/L BUN (9-20) mg/dL Glucose (74-99) mg/dL POC Glucose (mg/dL) 141 H 224 H (75-99) mg/dL Calcium (8.4-10.2) mg/dL Total Protein (6.3-8.2) g/dL Albumin (3.5-5.0) g/dL Crossmatch Microbiology - Last 24 Hours (Table) 05/30/16 06:29 Urine Culture - Final Urine,Voided Assessment and Plan Plan: Hypotension, possibly cardiogenic vs hypovolemic shock Acute exacerbation of CHF, diastolic, ejection fraction 45-50% Atrial fibrillation with rapid ventricular rate, status post ablation Pulmonary edema on CXR Small to trace pericardial effusion Hypoglycemic reaction, Hx DM2 Coronary artery disease, status post CABG and aortic valve replacement Hx hypertension Dyslipidemia COPD Pulmonary fibrosis with prior exposure to asbestos Anemia, macrocytic Thrombocytopenia O2 to maintain saturation greater than equal to 88% Diuresis: Lasix 40mg IV Q12 hours Stop D5W drip, monitor BS, cover with sliding scale for now Dopamine gtt Accuchecks AM CXR, CBC, CMP I's and O's and daily weights GI and DVT prophylaxis: Eliquis (on hold due to bleeding), Protonix Monitor blood pressure Abdominal U/S shows no retroperitoneal hematoma Cardiology recommendations Will transfuse 1 unit PRBC and try to wean dopamine Continue to monitor in ICU
--- NOTE | 2016-06-01 13:55 | P.PN ---
Subjective This is a 66-year-old gentleman who is followed by Dr. Chaitanya Parr on an outpatient basis. On 04/22/2016 the patient presented to the emergency department at [facility], with complaints of dyspnea. The patient denied complaints of any chest pain, and nausea. On presentation to the emergency department at [facility], a 12-lead EKG was completed which showed him to have some ST elevation in his inferior leads. Subsequently, this patient was seen and examined by Dr. Scherer from [facility] and the patient was transferred to [facility] for further evaluation and workup. The patient was admitted to the hospital and underwent an urgent cardiac catheterization by Dr. Scherer, which demonstrated the patient to have a totally occluded right coronary artery, 80% stenosis to a circumflex coronary artery, a 90% stenosis to his proximal left anterior descending coronary artery, and a 60 % stenosis to his mid left anterior descending coronary artery. The patient also underwent a 2-D echocardiogram, which demonstrated mild concentric left ventricular hypertrophy, mild mitral regurgitation, mild tricuspid regurgitation , an overall left ventricular systolic function severely impaired with an ejection fraction of 25-30%, [id number] aortic stenosis with mitral aortic regurgitation, and a peak/mean gradient across the aortic valve of 42.44 mmHg and 22.56 mmHg. The above-mentioned studies were reviewed with the patient by Dr. Scherer and by Dr. Hardy and an urgent coronary artery bypass grafting surgery with aortic valve replacement was done using QUEZADA to LAD saphenous venous graft to the diagonal branch, SVG to the obtuse marginal branch , and 7 as well as SVG to the RCA, along with aortic valve bioprosthesis, his hospital course was completed by acute bronchitis with Serratia marcescens as well as tachybradycardia syndrome and eventually he was transferred to [facility] for physical therapy rehabilitation. Patient was readmitted to [facility] on May 18 for atrial flutter with rapid ventricular response and underwent cardioversion on 2015. He was also treated for acute on chronic diastolic heart failure. He was discharged back to [facility] on May 24. Patient stated that he was in fine up until today when he started feeling short of breath and that he was feeling off with water. He was transferred to [facility] emergency center where he was found to have an elevated heart rate and again in atrial flutter. His blood pressure was low and he received fluid boluses of 1-1/2 L total. Troponins were 0.060, 0.074, 0.075. ProBNP was 5590. Urinalysis was negative. Patient was seen by cardiology with plan to have Dr. Peck evaluate for possible cardiac ablation. Patient is seen at this time in the emergency room as he is waiting for a [facility] care bed to be made 05/31: Patient was gone for EP study and ablation. Patient was noted to have decreased blood sugars this morning and received IV dextrose 50% followed by dextrose drip. After procedure, patient had hypotension which required vasopressors and patient was then transferred to the intensive care unit and consult requested with Dr. Marin. 06/01: Patient remains in the intensive care unit on dopamine drip with blood pressure maintaining at 90 systolic. He ate about half of his breakfast this morning. He is on D5W at a higher cc per hour and blood sugars 140. Rivers catheter is in place and can be removed if okay with Dr. Marin. Urine output has been 100 220 mL per hour. IV Lasix was given. Objective - Vital Signs Vital signs: Vital Signs Temp 98.2 F 06/01/16 09:00 Pulse 71 06/01/16 11:00 Resp 16 06/01/16 08:00 BP 105/53 06/01/16 11:00 Pulse Ox 91 L 06/01/16 11:00 Intake & Output 05/31/16 06/01/16 06/01/16 18:59 06:59 18:59 Intake Total 2323.13 1465.3 645.10 Output Total 450 1325 750 Balance 1873.13 140.3 -104.90 Weight 86 kg 85 kg Intake: IV 2091 Intake, IV Titration 232.13 1415.3 645.10 Amount DOPamine DRIP 800 mg In 20.03 245.10 Dextrose/Water 1 500ml. bag @ 5 MCG/KG/MIN 16.12 mls/hr IV .Q24H [facility] Rx#: [id number] DOPamine DRIP 800 mg In 12.1 115.3 Dextrose/Water 1 500ml. bag As IV .[facility] Rx #:[id number] Dextrose 5% in Water 1, 200 900 400 000 ml @ 100 mls/hr IV . Q10H [facility] Rx#:[id number] Magnesium Sulfate-D5w Pmx 400 1 gm In Dextrose/Water 1 100ml.bag @ 100 mls/hr IVPB Q1H [facility] Rx#: [id number] Oral 50 Output: Urine 450 1325 750 Other: Voiding Method Indwelling Catheter Indwelling Catheter Indwelling Catheter - Exam Gen: This is a 66-year-old male. He is sitting up on stretcher and appears to be in no acute distress. satellite project site monitor is atrial flutter. HEENT: Head is atraumatic, normocephalic. Pupils equal, round. Sclerae is anicteric. NECK: Supple. No JVD. No lymphadenopathy. No thyromegaly. LUNGS: Diminished bilateral bases but otherwise clear to auscultation. No wheezes or rhonchi. No intercostal retractions. HEART: Irregular rate and rhythm. Systolic murmur. ABDOMEN: Soft. Bowel sounds are present. No masses. No tenderness. EXTREMITIES: 1+ pedal edema bilaterally slightly worse on the right. Significant ecchymosis to the right leg. No calf tenderness. NEUROLOGICAL: Patient is awake, alert and oriented x3. Cranial nerves 2 through 12 are grossly intact. - Labs CBC & Chem 7: 06/01/16 09:00 06/01/16 02:05 Labs: Abnormal Lab Results - Last 24 Hours (Table) 05/31/16 05/31/16 05/31/16 Range/Units 06:08 15:20 16:40 WBC (3.8-10.6) k/uL RBC 2.92 L (4.30-5.90) m/uL Hgb 9.1 L (13.0-17.5) gm/dL Hct 29.0 L (39.0-53.0) % MCV (80.0-100.0) fL MCHC (31.0-37.0) g/dL RDW 17.0 H (11.5-15.5) % Plt Count 104 L (150-450) k/uL Neutrophils # 8.5 H (1.3-7.7) k/uL Lymphocytes # (1.0-4.8) k/uL Sodium (137-145) mmol/L BUN (9-20) mg/dL Glucose (74-99) mg/dL POC Glucose (mg/dL) 100 H (75-99) mg/dL Calcium (8.4-10.2) mg/dL Total Protein (6.3-8.2) g/dL Albumin (3.5-5.0) g/dL Crossmatch See Detail 05/31/16 05/31/16 05/31/16 Range/Units 20:29 22:25 22:25 WBC (3.8-10.6) k/uL RBC 2.70 L (4.30-5.90) m/uL Hgb 8.2 L (13.0-17.5) gm/dL Hct 26.7 L (39.0-53.0) % MCV (80.0-100.0) fL MCHC 30.7 L (31.0-37.0) g/dL RDW 16.7 H (11.5-15.5) % Plt Count 94 L (150-450) k/uL Neutrophils # 8.0 H (1.3-7.7) k/uL Lymphocytes # (1.0-4.8) k/uL Sodium (137-145) mmol/L BUN 52 H (9-20) mg/dL Glucose 144 H (74-99) mg/dL POC Glucose (mg/dL) 149 H (75-99) mg/dL Calcium (8.4-10.2) mg/dL Total Protein (6.3-8.2) g/dL Albumin (3.5-5.0) g/dL Crossmatch 05/31/16 06/01/16 06/01/16 Range/Units 23:53 02:05 02:05 WBC (3.8-10.6) k/uL RBC 2.62 L (4.30-5.90) m/uL Hgb 8.0 L (13.0-17.5) gm/dL Hct 26.2 L (39.0-53.0) % MCV 100.2 H (80.0-100.0) fL MCHC 30.4 L (31.0-37.0) g/dL RDW 17.1 H (11.5-15.5) % Plt Count 84 L (150-450) k/uL Neutrophils # (1.3-7.7) k/uL Lymphocytes # 0.9 L (1.0-4.8) k/uL Sodium 133 L (137-145) mmol/L BUN 47 H (9-20) mg/dL Glucose 127 H (74-99) mg/dL POC Glucose (mg/dL) 149 H (75-99) mg/dL Calcium 7.7 L (8.4-10.2) mg/dL Total Protein 4.7 L (6.3-8.2) g/dL Albumin 2.5 L (3.5-5.0) g/dL Crossmatch 06/01/16 06/01/16 06/01/16 Range/Units 02:46 09:00 12:14 WBC 11.6 H (3.8-10.6) k/uL RBC 2.62 L (4.30-5.90) m/uL Hgb 8.3 L (13.0-17.5) gm/dL Hct 25.9 L (39.0-53.0) % MCV (80.0-100.0) fL MCHC (31.0-37.0) g/dL RDW 17.1 H (11.5-15.5) % Plt Count 95 L (150-450) k/uL Neutrophils # 9.5 H (1.3-7.7) k/uL Lymphocytes # (1.0-4.8) k/uL Sodium (137-145) mmol/L BUN (9-20) mg/dL Glucose (74-99) mg/dL POC Glucose (mg/dL) 141 H 224 H (75-99) mg/dL Calcium (8.4-10.2) mg/dL Total Protein (6.3-8.2) g/dL Albumin (3.5-5.0) g/dL Crossmatch Microbiology - Last 24 Hours (Table) 05/30/16 06:29 Urine Culture - Final Urine,Voided Assessment and Plan Plan: 1. Atrial flutter with rapid ventricular response with previous history of electrical cardioversions status post ablation on May 31. Patient has been seen by cardiology. Continue amiodarone and eliquis. He did receive bolus dose of Cardizem but due to hypotension, Cardizem drip was not started. 2. Coronary artery disease status post coronary artery bypass graft with QUEZADA to LAD, SVG to the diagonal branch, SVG to obtuse marginal branch, SVG to RCA with severe LV dysfunction. 3. Moderate to severe aortic valve stenosis status post bioprosthetic aortic valve replacement. Stable at this point in time. 4. Hypertension. Currently hypotensive. Patient is normally on Coreg 3.125 mg every 12 hours, Lasix 20 mg daily, lisinopril 2.5 mg daily. Patient has been hypotensive and parameters in place for his antihypertensive medications. 5. Hyperlipidemia. Continue Lipitor. 6. Medical debility. Return to [facility] with the patient is more stable. 7. COPD currently stable. Continue albuterol as needed. 8. 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 9. Chronic diastolic heart failure, last ELIZABETH performed 05/09/2016 ejection fraction 45-50%. Continue Lasix 20 mg daily with potassium supplement. 7. Acute exacerbation of diastolic heart failure. Patient was started on Lasix 40 mg IV every 12 hours. 8. Diabetes mellitus type 2, uncontrolled with hypoglycemia. Patient is on D5W. Hypoglycemic medications are on hold. 9. Postprocedural hypotension, unexpected. Patient is currently on dopamine drip. Patient was transferred to the intensive care unit and consult with Dr. Marin. 10. DVT prophylaxis. Eliquis. 11. GI prophylaxis. Continue patient on Protonix 40 mg orally once every day. 12. Patient is full code. Discharge plan: Return to [facility] Impression and plan of care have been directed as dictated by the signing physician. Diane Young nurse practitioner acting as scribe for signing physician. Time with Patient: Greater than 30
[2016-06-01 16:19] LABS: INR 1.2 (<1.1); Prothrombin Time 12.3 sec (9.0-12.0)
--- NOTE | 2016-06-01 17:12 | US ---
EXAMINATION TYPE: US lower ext pseudo artery LT DATE OF EXAM: 06/01/2016 4:21 PM COMPARISON: NONE CLINICAL HISTORY: 66-year-old male with left groin procedure yesterday, still bleeding from site toda y. TECHNIQUE: Multiple sonographic images in the left groin at the site of vascular access. FINDINGS: The external iliac artery, common femoral artery, its transition to the superficial femoral artery ar e imaged. There is either some plaque or shadowing relating to a closure device obscuring the transit ion point of the common and superficial femoral arteries. No abnormal vascular outpouching or fluid c ollection is identified. TECHNOLOGIST NOTES: No obvious pseudoaneurysm seen, soft tissue scan and color images appear wnl IMPRESSION: No visualized pseudoaneurysm in the left groin. There is shadowing at the junction of the common and superficial femoral arteries that could be from calcified plaque or a closure device.
[2016-06-01 17:24] LABS: Glucose,Whole Blood 136 mg/dL (75-99)
[2016-06-01] MEDS: TAMSULOSIN 0.4 MG CAP.ER.24H PO SCH (17:26)
--- NOTE | 2016-06-01 17:45 | P.CON ---
Consult Note - . Assessment/Plan:: impression; 1. s/p atrial flutter ablation 05/31/2016 for persistant hypotension and failed cardioversion 2. full anticoagulation with apixaban; now stopped 3. persistant oozing from left femoral puncture site with no evidence of pseudoaneurysm or AV fistula on duplex imaging plan; 1. continue to hold apixaban for now 2. hemostatic sponge to left groin with bed rest x 4 hours 66 y/o man with aforementioned procedure now with persistant oozing from left femoral puncture site after ablation performed 05/31/2016. Patient was on apixaban that has been held; underwent placement of fem-stop device with no improvement with respect to oozing. Underwent CABG procedure with AVR in 2015 without bleeding diathesis noted. PMHx/PSHx/FHx/Allergies/Habits; reviewed from H&P of 05/30/2015 with no significant changes except for ablation procedure. PE; Left leg; groin with singel puncture site with persistant oozing; no hematoma, no thrill; palpable left femoral, popliteal and dorsalis pedis pulse; left foot is viable Hemostasis achieved with manual pressure and use of hemostatic patch (marcio) impression/plan; as noted above
[2016-06-01] MEDS: SENNOSIDES 8.6 MG TAB PO SCH (20:40)
[2016-06-01] MEDS: QUEtiapine 25 MG TAB PO SCH (20:40)
[2016-06-01] MEDS: ATORVASTATIN 40 MG TAB PO SCH (20:40)
[2016-06-01] MEDS: MELATONIN 3 MG TABLET PO SCH (20:40)
[2016-06-01 22:15] LABS: Glucose,Whole Blood 105 mg/dL (75-99)
--- NOTE | 2016-06-01 23:46 | P.PN ---
Subjective Principal diagnosis: Atrial flutter, CHF, anemia This 66-year-old gentleman is readmitted to the hospital with complaints of increasing shortness of breath and fatigue. Patient was found to be in atrial flutter with rapid ventricular response. Patient underwent ablation yesterday with establishment of sinus rhythm. However patient remained hypotensive and has been on dopamine. Patient also had some drop in hemoglobin which has remained about 8.12 8.3. Patient developed oozing from the left groin from additional hematoma and ecchymosis in the right leg. Vascular surgeon is requested to see the patient to help the wheezing on the left groin. Patient is feeling slightly better today. Appears to be less short of breath. A chest x-ray shows bilateral infiltrates as before. We'll continue to monitor hemoglobin and may consider transfusion of one unit of blood. We'll try to wean dopamine slowly. We will also going to hold eliquis at this time. Objective - Vital Signs Vital signs: Vital Signs Temp 97.6 F 06/01/16 20:00 Pulse 64 06/01/16 22:00 Resp 18 06/01/16 22:00 BP 94/46 06/01/16 22:00 Pulse Ox 93 L 06/01/16 22:00 Intake & Output 06/01/16 06/01/16 06/02/16 06:59 18:59 06:59 Intake Total 1465.3 841.82 620 Output Total 1325 1750 580 Balance 140.3 -908.18 40 Weight 85 kg Intake: IV 310 PRBC 310 Intake, IV Titration 1415.3 841.82 Amount DOPamine DRIP 800 mg In 341.82 Dextrose/Water 1 500ml. bag @ 5 MCG/KG/MIN 16.12 mls/hr IV .Q24H REPLACED BY [facility] Rx#: [id number] DOPamine DRIP 800 mg In 115.3 Dextrose/Water 1 500ml. bag As IV .[facility] ONE Rx #:[id number] Dextrose 5% in Water 1, 900 500 000 ml @ 100 mls/hr IV . Q10H [facility] Rx#:[id number] Magnesium Sulfate-D5w Pmx 400 1 gm In Dextrose/Water 1 100ml.bag @ 100 mls/hr IVPB Q1H REPLACED BY [facility] Rx#: [id number] Oral 50 Blood Product 0 310 Rc Pheresis 2 As3 Unit 0 310 [id number] Output: Urine 1325 1750 580 Other: Voiding Method Indwelling Catheter Indwelling Catheter Indwelling Catheter - Exam GENERAL EXAM: Patient is alert and oriented and doesn't appear to be in any acute distress. Feeling slightly better HEENT: Normocephalic. Normal reaction of pupils, equal size, normal range of extraocular motion. No erythema or exudates in the throat. NECK: No masses, no nuchal rigidity. CHEST: No chest wall deformity. LUNGS: Equal air entry with no crackles or wheeze. HEART: S1 and S2 normal with no audible mumurs or gallops. Regular rhythm, femorals equal on both sides.. ABDOMEN: No hepatosplenomegaly, normal bowel sounds, no guarding or rigidity. SKIN: No rashes CENTRAL NERVOUS SYSTEM: No focal deficits. EXTREMITIES: No cyanosis, clubbing or edema. There is oozing from the left puncture site - Labs CBC & Chem 7: 06/01/16 09:00 06/01/16 02:05 Labs: Abnormal Lab Results - Last 24 Hours (Table) 05/31/16 05/31/16 06/01/16 Range/Units 06:08 23:53 02:05 WBC (3.8-10.6) k/uL RBC (4.30-5.90) m/uL Hgb (13.0-17.5) gm/dL Hct (39.0-53.0) % MCV (80.0-100.0) fL MCHC (31.0-37.0) g/dL RDW (11.5-15.5) % Plt Count (150-450) k/uL Neutrophils # (1.3-7.7) k/uL Lymphocytes # (1.0-4.8) k/uL PT (9.0-12.0) sec Sodium 133 L (137-145) mmol/L BUN 47 H (9-20) mg/dL Glucose 127 H (74-99) mg/dL POC Glucose (mg/dL) 149 H (75-99) mg/dL Calcium 7.7 L (8.4-10.2) mg/dL Total Protein 4.7 L (6.3-8.2) g/dL Albumin 2.5 L (3.5-5.0) g/dL Crossmatch See Detail 06/01/16 06/01/16 06/01/16 Range/Units 02:05 02:46 09:00 WBC 11.6 H (3.8-10.6) k/uL RBC 2.62 L 2.62 L (4.30-5.90) m/uL Hgb 8.0 L 8.3 L (13.0-17.5) gm/dL Hct 26.2 L 25.9 L (39.0-53.0) % MCV 100.2 H (80.0-100.0) fL MCHC 30.4 L (31.0-37.0) g/dL RDW 17.1 H 17.1 H (11.5-15.5) % Plt Count 84 L 95 L (150-450) k/uL Neutrophils # 9.5 H (1.3-7.7) k/uL Lymphocytes # 0.9 L (1.0-4.8) k/uL PT (9.0-12.0) sec Sodium (137-145) mmol/L BUN (9-20) mg/dL Glucose (74-99) mg/dL POC Glucose (mg/dL) 141 H (75-99) mg/dL Calcium (8.4-10.2) mg/dL Total Protein (6.3-8.2) g/dL Albumin (3.5-5.0) g/dL Crossmatch 06/01/16 06/01/16 06/01/16 Range/Units 12:14 16:00 17:23 WBC (3.8-10.6) k/uL RBC (4.30-5.90) m/uL Hgb (13.0-17.5) gm/dL Hct (39.0-53.0) % MCV (80.0-100.0) fL MCHC (31.0-37.0) g/dL RDW (11.5-15.5) % Plt Count (150-450) k/uL Neutrophils # (1.3-7.7) k/uL Lymphocytes # (1.0-4.8) k/uL PT 12.3 H (9.0-12.0) sec Sodium (137-145) mmol/L BUN (9-20) mg/dL Glucose (74-99) mg/dL POC Glucose (mg/dL) 224 H 136 H (75-99) mg/dL Calcium (8.4-10.2) mg/dL Total Protein (6.3-8.2) g/dL Albumin (3.5-5.0) g/dL Crossmatch 06/01/16 Range/Units 22:13 WBC (3.8-10.6) k/uL RBC (4.30-5.90) m/uL Hgb (13.0-17.5) gm/dL Hct (39.0-53.0) % MCV (80.0-100.0) fL MCHC (31.0-37.0) g/dL RDW (11.5-15.5) % Plt Count (150-450) k/uL Neutrophils # (1.3-7.7) k/uL Lymphocytes # (1.0-4.8) k/uL PT (9.0-12.0) sec Sodium (137-145) mmol/L BUN (9-20) mg/dL Glucose (74-99) mg/dL POC Glucose (mg/dL) 105 H (75-99) mg/dL Calcium (8.4-10.2) mg/dL Total Protein (6.3-8.2) g/dL Albumin (3.5-5.0) g/dL Crossmatch Assessment and Plan (1) Atrial flutter with rapid ventricular response Status: Acute (2) CHF (congestive heart failure) Status: Acute (3) Hypotension Status: Acute (4) Aortic stenosis Status: Acute (5) Diabetes Status: Acute Plan: Continue dopamine and try to wean the medication tolerated. May consider transfusion of one unit of blood. We'll also get a vascular consult for management of the oozing from the left groin. Further recommendations depend upon the clinical course.
[2016-06-02 02:14] LABS: Glucose,Whole Blood 100 mg/dL (75-99)
[2016-06-02 05:27] LABS: Anisocytosis Slight; CH 30.8; CHCM 31.8; HCT 28.1 % (39.0-53.0); HDW 3.55; HGB 8.9 gm/dL (13.0-17.5); Hypochromasia Moderate; MCH 30.9 pg (25.0-35.0); MCHC 31.8 g/dL (31.0-37.0); MCV 97.3 fL (80.0-100.0); Macrocytosis Slight; Mean Platelet Volume 7.7; Poikilocytosis Slight; RBC 2.88 m/uL (4.30-5.90); RDW 16.6 % (11.5-15.5); WBC 8.3 k/uL (3.8-10.6)
[2016-06-02 05:43] LABS: Anion Gap 6 mmol/L; Blood Urea Nitrogen 42 mg/dL (9-20); Calcium 7.9 mg/dL (8.4-10.2); Carbon Dioxide 27 mmol/L (22-30); Chloride 97 mmol/L (98-107); Glucose 90 mg/dL (74-99); Magnesium 2.1 mg/dL (1.6-2.3); Non-African American GFR(MDRD) >60 (>60 ml/min/1.73 sqM); Phosphorous 3.7 mg/dL (2.5-4.5); Potassium 4.4 mmol/L (3.5-5.1); Sodium 130 mmol/L (137-145)
[2016-06-02] MEDS: ALBUTEROL NEBULIZED 2.5 MG/3 ML INHALATION PRN ×2 (07:38→19:31)
[2016-06-02] MEDS: BUDESONIDE 0.5 MG/2 ML NEBU INHALATION SCH ×2 (07:38→19:31)
[2016-06-02 08:05] LABS: Glucose,Whole Blood 92 mg/dL (75-99)
[2016-06-02] MEDS: FUROSEMIDE 10 MG/ML 4 ML VIAL IV SCH ×2 (08:11→21:59)
[2016-06-02] MEDS: POTASSIUM CHLORIDE ER 20 MEQ TAB.ER PO SCH (08:11)
[2016-06-02] MEDS: ASPIRIN 81 MG CHEW PO SCH (08:11)
[2016-06-02] MEDS: MULTIVITAMINS, THERA 1 EACH TAB PO SCH (08:12)
[2016-06-02] MEDS: THIAMINE 100 MG TAB PO SCH ×2 (08:12→17:00)
[2016-06-02] MEDS: FERROUS SULFATE 325 MG TAB PO SCH (08:12)
[2016-06-02] MEDS: guaiFENesin 600 MG TABLET.ER PO SCH ×2 (08:12→21:58)
[2016-06-02] MEDS: PANTOPRAZOLE 40 MG TABLET PO SCH (08:13)
[2016-06-02] MEDS ORDERED: AMIODARONE 50 MG TAB PO ONE (08:15)
--- NOTE | 2016-06-02 11:27 | XR ---
EXAMINATION TYPE: XR chest 1V portable DATE OF EXAM: 06/02/2016 6:20 AM COMPARISON: Prior chest x-ray 01 June 2016 HISTORY: Congestive heart failure, shortness of breath TECHNIQUE: Single frontal view of the chest is obtained. FINDINGS: There is no significant interval change. IMPRESSION: Findings compatible with congestive heart failure, there is possible underlying intersti tial lung disease. Cardiomegaly, postop changes. Additional follow-up recommended.
--- NOTE | 2016-06-02 12:30 | P.PN ---
Subjective Principal diagnosis: Hypotension Patient seen and examined in the ICU with nursing staff at bedside. Patient has been off of dopamine since 5 PM yesterday. Systolic blood pressures are 103. Patient states he is still having some shortness of breath especially with exertion. He is continuing to receive Lasix. Groin bleeding has resolved. Objective - Vital Signs Vital signs: Vital Signs Temp 98 F 06/02/16 00:00 Pulse 68 06/02/16 10:00 Resp 11 L 06/02/16 10:00 BP 107/48 06/02/16 10:00 Pulse Ox 89 L 06/02/16 10:00 Intake & Output 06/01/16 06/02/16 06/02/16 18:59 06:59 18:59 Intake Total 841.82 800 100 Output Total 1750 1270 550 Balance -908.18 -470 -450 Weight 85 kg 85 kg Intake: IV 490 100 PRBC 310 Sodium Chloride 0.9% 1, 180 100 000 ml @ 20 mls/hr IV . Q24H [facility] Rx#:[id number] Intake, IV Titration 841.82 Amount DOPamine DRIP 800 mg In 341.82 Dextrose/Water 1 500ml. bag @ 5 MCG/KG/MIN 16.12 mls/hr IV .Q24H [facility] Rx#: [id number] Dextrose 5% in Water 1, 500 000 ml @ 100 mls/hr IV . Q10H [facility] Rx#:[id number] Blood Product 0 310 Rc Pheresis 2 As3 Unit 0 310 [id number] Output: Urine 1750 1270 550 Other: Voiding Method Indwelling Catheter Indwelling Catheter Indwelling Catheter # Bowel Movements 1 - Exam Gen.: Patient is alert and oriented 3, no acute distress Cardiovascular: Regular rate and rhythm, S1/S2 Lungs: Diminished breath sounds bilaterally with scattered crackles Abdomen: Soft nontender nondistended positive bowel sounds Extremities: No edema, multiple areas of ecchymosis noted - Labs CBC & Chem 7: 06/02/16 04:52 06/02/16 04:52 Labs: Abnormal Lab Results - Last 24 Hours (Table) 05/31/16 06/01/16 06/01/16 Range/Units 06:08 16:00 17:23 RBC (4.30-5.90) m/uL Hgb (13.0-17.5) gm/dL Hct (39.0-53.0) % RDW (11.5-15.5) % Plt Count (150-450) k/uL PT 12.3 H (9.0-12.0) sec Sodium (137-145) mmol/L Chloride (98-107) mmol/L BUN (9-20) mg/dL POC Glucose (mg/dL) 136 H (75-99) mg/dL Calcium (8.4-10.2) mg/dL Crossmatch See Detail 06/01/16 06/02/16 06/02/16 Range/Units 22:13 02:12 04:52 RBC (4.30-5.90) m/uL Hgb (13.0-17.5) gm/dL Hct (39.0-53.0) % RDW (11.5-15.5) % Plt Count (150-450) k/uL PT (9.0-12.0) sec Sodium 130 L (137-145) mmol/L Chloride 97 L (98-107) mmol/L BUN 42 H (9-20) mg/dL POC Glucose (mg/dL) 105 H 100 H (75-99) mg/dL Calcium 7.9 L (8.4-10.2) mg/dL Crossmatch 06/02/16 Range/Units 04:52 RBC 2.88 L (4.30-5.90) m/uL Hgb 8.9 L (13.0-17.5) gm/dL Hct 28.1 L (39.0-53.0) % RDW 16.6 H (11.5-15.5) % Plt Count 82 L (150-450) k/uL PT (9.0-12.0) sec Sodium (137-145) mmol/L Chloride (98-107) mmol/L BUN (9-20) mg/dL POC Glucose (mg/dL) (75-99) mg/dL Calcium (8.4-10.2) mg/dL Crossmatch Assessment and Plan Plan: Hypotension, possibly cardiogenic vs hypovolemic shock Acute exacerbation of CHF, diastolic, ejection fraction 45-50% Atrial fibrillation with rapid ventricular rate, status post ablation Pulmonary edema on CXR Small to trace pericardial effusion Hypoglycemic reaction, Hx DM2 Coronary artery disease, status post CABG and aortic valve replacement Hx hypertension Dyslipidemia COPD Pulmonary fibrosis with prior exposure to asbestos Anemia, macrocytic Thrombocytopenia O2 to maintain saturation greater than equal to 88% Diuresis: Lasix 40mg IV Q12 hours Stop D5W drip, monitor BS, cover with sliding scale for now Dopamine off, BP improved Accuchecks AM CXR, CBC, CMP I's and O's and daily weights GI and DVT prophylaxis: Eliquis (on hold due to bleeding), Protonix Monitor blood pressure Abdominal U/S shows no retroperitoneal hematoma Cardiology recommendations Consult PT and OT OK to transfer out of ICU today
[2016-06-02 12:37] LABS: Glucose,Whole Blood 125 mg/dL (75-99)
[2016-06-02] MEDS: DOPamine DRIP 800 MG in DEXTROSE/WATER 1 500ML.BAG IV SCH (13:31)
[2016-06-02 16:43] LABS: Glucose,Whole Blood 157 mg/dL (75-99)
[2016-06-02] MEDS: SODIUM CHLORIDE 0.9% 1,000 ML IV SCH (17:00)
--- NOTE | 2016-06-02 19:16 | P.PN ---
Subjective Principal diagnosis: Atrial flutter, anemia, CHF This is 66-year-old gentleman with history of CABG and aortic valve replacement was readmitted to the hospital with complaints of shortness of breath and fatigue. Patient was found to be in atrial flutter with 2 to one conduction with wide QRS complex. Patient had ablation the day before yesterday. Patient has developed a drop in hemoglobin of 1 g. Patient received one unit of blood yesterday. His hemoglobin stabilized at 8.9. He seemed to more comfortable. His blood pressure stable about 100 systolic. He is comfortable at rest but complaints of shortness of breath or exertion. His heart rate is in the 60s. Patient could be transferred to telemetry unit Objective - Vital Signs Vital signs: Vital Signs Temp 98.2 F 06/02/16 16:00 Pulse 67 06/02/16 16:00 Resp 28 H 06/02/16 16:00 BP 112/53 06/02/16 16:00 Pulse Ox 94 L 06/02/16 16:00 Intake & Output 06/02/16 06/02/16 06/03/16 06:59 18:59 06:59 Intake Total 800 200 Output Total 1270 825 Balance -470 -625 Weight 85 kg 85 kg Intake: IV 490 200 PRBC 310 Sodium Chloride 0.9% 1, 180 200 000 ml @ 20 mls/hr IV . Q24H [facility] Rx#:[id number] Blood Product 310 Rc Pheresis 2 As3 Unit 310 [id number] Output: Urine 1270 825 Other: Voiding Method Indwelling Catheter Indwelling Catheter # Bowel Movements 1 - Exam GENERAL EXAM: Patient is alert and oriented and doesn't appear to be in any acute distress. Feeling slightly better HEENT: Normocephalic. Normal reaction of pupils, equal size, normal range of extraocular motion. No erythema or exudates in the throat. NECK: No masses, no nuchal rigidity. CHEST: No chest wall deformity. LUNGS: Equal air entry with no crackles or wheeze. HEART: S1 and S2 normal with no audible mumurs or gallops. Regular rhythm, femorals equal on both sides.. ABDOMEN: No hepatosplenomegaly, normal bowel sounds, no guarding or rigidity. SKIN: No rashes CENTRAL NERVOUS SYSTEM: No focal deficits. EXTREMITIES: No cyanosis, clubbing or edema. There is oozing from the left puncture site - Labs CBC & Chem 7: 06/02/16 04:52 06/02/16 04:52 Labs: Abnormal Lab Results - Last 24 Hours (Table) 05/31/16 06/01/16 06/02/16 Range/Units 06:08 22:13 02:12 RBC (4.30-5.90) m/uL Hgb (13.0-17.5) gm/dL Hct (39.0-53.0) % RDW (11.5-15.5) % Plt Count (150-450) k/uL Sodium (137-145) mmol/L Chloride (98-107) mmol/L BUN (9-20) mg/dL POC Glucose (mg/dL) 105 H 100 H (75-99) mg/dL Calcium (8.4-10.2) mg/dL Crossmatch See Detail 06/02/16 06/02/16 06/02/16 Range/Units 04:52 04:52 12:35 RBC 2.88 L (4.30-5.90) m/uL Hgb 8.9 L (13.0-17.5) gm/dL Hct 28.1 L (39.0-53.0) % RDW 16.6 H (11.5-15.5) % Plt Count 82 L (150-450) k/uL Sodium 130 L (137-145) mmol/L Chloride 97 L (98-107) mmol/L BUN 42 H (9-20) mg/dL POC Glucose (mg/dL) 125 H (75-99) mg/dL Calcium 7.9 L (8.4-10.2) mg/dL Crossmatch 06/02/16 Range/Units 16:36 RBC (4.30-5.90) m/uL Hgb (13.0-17.5) gm/dL Hct (39.0-53.0) % RDW (11.5-15.5) % Plt Count (150-450) k/uL Sodium (137-145) mmol/L Chloride (98-107) mmol/L BUN (9-20) mg/dL POC Glucose (mg/dL) 157 H (75-99) mg/dL Calcium (8.4-10.2) mg/dL Crossmatch Assessment and Plan (1) Atrial flutter with rapid ventricular response Status: Acute (2) CHF (congestive heart failure) Status: Acute (3) Hypotension Status: Acute (4) Aortic stenosis Status: Acute (5) Diabetes Status: Acute Plan: Patient up pacemaker much more stable. His less short of breath. His blood pressure is more stable. His chest x-ray continues to show infiltrates. His hemoglobin is 8.9. Patient could be transferred out of intensive care unit. Increase activity as tolerated
[2016-06-02] MEDS: TAMSULOSIN 0.4 MG CAP.ER.24H PO SCH (19:41)
[2016-06-02] MEDS: SENNOSIDES 8.6 MG TAB PO SCH (21:57)
[2016-06-02] MEDS: MELATONIN 3 MG TABLET PO SCH (21:58)
[2016-06-02] MEDS: QUEtiapine 25 MG TAB PO SCH (21:58)
[2016-06-02] MEDS: ATORVASTATIN 40 MG TAB PO SCH (21:59)
[2016-06-02] MEDS: INSULIN LISPRO (humaLOG) 300 UNIT/3 ML VIAL SQ SCH (22:04)
[2016-06-02 22:05] LABS: Glucose,Whole Blood 137 mg/dL (75-99)
[2016-06-03 05:02] LABS: Glucose,Whole Blood 97 mg/dL (75-99)
[2016-06-03 05:21] LABS: Anisocytosis Slight; CH 30.9; HCT 28.3 % (39.0-53.0); HDW 3.47; Hypochromasia Moderate; MCHC 31.9 g/dL (31.0-37.0); MCV 97.1 fL (80.0-100.0); Macrocytosis Slight; Mean Platelet Volume 7.9; Poikilocytosis Slight; RBC 2.91 m/uL (4.30-5.90); RDW 16.9 % (11.5-15.5); WBC 9.3 k/uL (3.8-10.6)
[2016-06-03 05:34] LABS: Anion Gap 6 mmol/L; Blood Urea Nitrogen 32 mg/dL (9-20); Calcium 8.1 mg/dL (8.4-10.2); Carbon Dioxide 29 mmol/L (22-30); Chloride 98 mmol/L (98-107); Glucose 99 mg/dL (74-99); Magnesium 1.9 mg/dL (1.6-2.3); Non-African American GFR(MDRD) >60 (>60 ml/min/1.73 sqM); Phosphorous 3.5 mg/dL (2.5-4.5); Potassium 4.1 mmol/L (3.5-5.1); Sodium 133 mmol/L (137-145)
[2016-06-03] MEDS: BUDESONIDE 0.5 MG/2 ML NEBU INHALATION SCH ×2 (07:16→20:35)
[2016-06-03] MEDS: ALBUTEROL NEBULIZED 2.5 MG/3 ML INHALATION PRN ×4 (07:16→20:35)
[2016-06-03 07:58] LABS: Glucose,Whole Blood 104 mg/dL (75-99)
[2016-06-03] MEDS: ASPIRIN 81 MG CHEW PO SCH (08:51)
[2016-06-03] MEDS: PANTOPRAZOLE 40 MG TABLET PO SCH (08:51)
[2016-06-03] MEDS: guaiFENesin 600 MG TABLET.ER PO SCH ×2 (08:51→19:59)
[2016-06-03] MEDS: POTASSIUM CHLORIDE ER 20 MEQ TAB.ER PO SCH (08:51)
[2016-06-03] MEDS: INSULIN LISPRO (humaLOG) 300 UNIT/3 ML VIAL SQ SCH ×4 (08:52→20:30)
[2016-06-03] MEDS: FUROSEMIDE 10 MG/ML 4 ML VIAL IV SCH (08:52)
[2016-06-03] MEDS: MAGNESIUM SULFATE-D5W PMX 1 GM in DEXTROSE/WATER 1 100ML.BAG IVPB SCH ×2 (09:53→11:39)
[2016-06-03] MEDS ORDERED: DEXTROSE 5% IN WATER 100 ML with AMIODARONE 150 MG IV ONE (10:41)
--- NOTE | 2016-06-03 10:48 | P.PN ---
Subjective Principal diagnosis: A. fib/a flutter This is a pleasant 66-year-old gentleman with a known CAD and status post CABG along with aortic valve replacement who was admitted to the hospital this time with atrial flutter and rapid ventricular response. He underwent an atrial flutter ablation few days ago. He was doing good until this morning when he went back into an A. fib with RVR and converted back into normal sinus mechanism. Clinically he continues to be short of breath. He denies having any chest pain or chest discomfort. There is no chest x-ray from today. I am going to add digoxin and amiodarone to the current medical treatment. Unfortunately we can't add any beta sravanthi in view of the patient's marginal blood pressure. I will continue holding the anticoagulation for 1 more day to monitor the hemoglobin which was dropped a bit yesterday. Objective - Vital Signs Vital signs: Vital Signs Temp 98.5 F 06/03/16 08:00 Pulse 130 H 06/03/16 10:00 Resp 26 H 06/03/16 10:00 BP 103/66 06/03/16 10:00 Pulse Ox 93 L 06/03/16 10:00 Intake & Output 06/02/16 06/03/16 06/03/16 18:59 06:59 18:59 Intake Total 200 240 240 Output Total 825 1750 475 Balance -961 -7004 -273 Weight 85 kg 81.8 kg Intake: IV 200 240 40 Sodium Chloride 0.9% 1, 200 240 40 000 ml @ 20 mls/hr IV . Q24H [facility] Rx#:[id number] Intake, IV Titration 100 Amount Magnesium Sulfate-D5w Pmx 100 1 gm In Dextrose/Water 1 100ml.bag @ 100 mls/hr IVPB Q1H [facility] Rx#: [id number] Oral 100 Output: Urine 825 1750 475 Other: Voiding Method Indwelling Catheter Indwelling Catheter Indwelling Catheter # Bowel Movements 1 1 - Constitutional General appearance: Present: no acute distress - Respiratory Respiratory: bilateral: diminished - Cardiovascular Rhythm: regular Heart sounds: normal: S1, S2 - Labs CBC & Chem 7: 06/03/16 05:11 06/03/16 05:11 Labs: Abnormal Lab Results - Last 24 Hours (Table) 06/02/16 06/02/16 06/02/16 Range/Units 12:35 16:36 22:04 RBC (4.30-5.90) m/uL Hgb (13.0-17.5) gm/dL Hct (39.0-53.0) % RDW (11.5-15.5) % Plt Count (150-450) k/uL Sodium (137-145) mmol/L BUN (9-20) mg/dL POC Glucose (mg/dL) 125 H 157 H 137 H (75-99) mg/dL Calcium (8.4-10.2) mg/dL 06/03/16 06/03/16 06/03/16 Range/Units 05:11 05:11 07:42 RBC 2.91 L (4.30-5.90) m/uL Hgb 9.0 L (13.0-17.5) gm/dL Hct 28.3 L (39.0-53.0) % RDW 16.9 H (11.5-15.5) % Plt Count 78 L (150-450) k/uL Sodium 133 L (137-145) mmol/L BUN 32 H (9-20) mg/dL POC Glucose (mg/dL) 104 H (75-99) mg/dL Calcium 8.1 L (8.4-10.2) mg/dL Assessment and Plan Plan: Assessment #1 paroxysmal atrial fibrillation #2 status post A. flutter ablation #3 systemic hypertension #4 CAD and status post CABG #5 status post aVR Plan #1 add digoxin and amiodarone #2 continue holding the anticoagulation for 1 more day #3 follow-up with the patient
[2016-06-03] MEDS: AMIODARONE 100 MG TAB PO SCH (10:55)
[2016-06-03] MEDS: DOPamine DRIP 800 MG in DEXTROSE/WATER 1 500ML.BAG IV SCH (10:55)
--- NOTE | 2016-06-03 11:15 | P.PN ---
Subjective This is a 66-year-old gentleman who is followed by Dr. Chaitanya Parr on an outpatient basis. On 04/22/2016 the patient presented to the emergency department at [facility], with complaints of dyspnea. The patient denied complaints of any chest pain, and nausea. On presentation to the emergency department at [facility], a 12-lead EKG was completed which showed him to have some ST elevation in his inferior leads. Subsequently, this patient was seen and examined by Dr. Scherer from [facility] and the patient was transferred to [facility] for further evaluation and workup. The patient was admitted to the hospital and underwent an urgent cardiac catheterization by Dr. Scherer, which demonstrated the patient to have a totally occluded right coronary artery, 80% stenosis to a circumflex coronary artery, a 90% stenosis to his proximal left anterior descending coronary artery, and a 60 % stenosis to his mid left anterior descending coronary artery. The patient also underwent a 2-D echocardiogram, which demonstrated mild concentric left ventricular hypertrophy, mild mitral regurgitation, mild tricuspid regurgitation , an overall left ventricular systolic function severely impaired with an ejection fraction of 25-30%, [id number] aortic stenosis with mitral aortic regurgitation, and a peak/mean gradient across the aortic valve of 42.44 mmHg and 22.56 mmHg. The above-mentioned studies were reviewed with the patient by Dr. Scherer and by Dr. Hardy and an urgent coronary artery bypass grafting surgery with aortic valve replacement was done using QUEZADA to LAD saphenous venous graft to the diagonal branch, SVG to the obtuse marginal branch , and 7 as well as SVG to the RCA, along with aortic valve bioprosthesis, his hospital course was completed by acute bronchitis with Serratia marcescens as well as tachybradycardia syndrome and eventually he was transferred to [facility] for physical therapy rehabilitation. Patient was readmitted to [facility] on May 18 for atrial flutter with rapid ventricular response and underwent cardioversion on 2015. He was also treated for acute on chronic diastolic heart failure. He was discharged back to [facility] on May 24. Patient stated that he was in fine up until today when he started feeling short of breath and that he was feeling off. He was transferred to [facility] emergency center where he was found to have an elevated heart rate and again in atrial flutter. His blood pressure was low and he received fluid boluses of 1-1/2 L total. Troponins were 0.060, 0.074, 0.075. ProBNP was 5590. Urinalysis was negative. Patient was seen by cardiology with plan to have Dr. Peck evaluate for possible cardiac ablation. Patient is seen at this time in the emergency room as he is waiting for a selective care bed to be made 06/03: He is status post EP study and ablation done on May 31. He was hypotensive following the procedure and was placed on dopamine and transferred to the intensive care unit and consult requested with Dr. Marin. He has subsequently been weaned off dopamine. This morning he has again in atrial fibrillation with heart rate running 116-120. Patient is status post 1 unit packed RBCs given on June 01 for hemoglobin of 8.0. Patient is complaining of a sore throat and thrush noted and started on nystatin. Rivers catheter has remained in place. Urine output has been good. Objective - Vital Signs Vital signs: Vital Signs Temp 98.5 F 06/03/16 08:00 Pulse 118 H 06/03/16 09:00 Resp 22 06/03/16 09:00 BP 91/68 06/03/16 09:00 Pulse Ox 93 L 06/03/16 09:00 Intake & Output 06/02/16 06/03/16 06/03/16 18:59 06:59 18:59 Intake Total 200 240 120 Output Total 825 1750 175 Balance -625 -1510 -55 Weight 85 kg 81.8 kg Intake: IV 200 240 20 Sodium Chloride 0.9% 1, 200 240 20 000 ml @ 20 mls/hr IV . Q24H [facility] Rx#:[id number] Oral 100 Output: Urine 825 1750 175 Other: Voiding Method Indwelling Catheter Indwelling Catheter # Bowel Movements 1 1 - Exam Gen: This is a 66-year-old male. He is sitting up on stretcher and appears to be in no acute distress. quality assurance monitor chassis is atrial flutter. HEENT: Head is atraumatic, normocephalic. Pupils equal, round. Sclerae is anicteric. + Thrush. NECK: Supple. No JVD. No lymphadenopathy. No thyromegaly. LUNGS: Diminished bilateral bases but otherwise clear to auscultation. No wheezes or rhonchi. No intercostal retractions. HEART: Irregular rate and rhythm. Systolic murmur. ABDOMEN: Soft. Bowel sounds are present. No masses. No tenderness. EXTREMITIES: 1+ pedal edema bilaterally slightly worse on the right. Significant ecchymosis to the right leg. No calf tenderness. NEUROLOGICAL: Patient is awake, alert and oriented x3. Cranial nerves 2 through 12 are grossly intact. - Labs CBC & Chem 7: 06/03/16 05:11 06/03/16 05:11 Labs: Abnormal Lab Results - Last 24 Hours (Table) 06/02/16 06/02/16 06/02/16 Range/Units 12:35 16:36 22:04 RBC (4.30-5.90) m/uL Hgb (13.0-17.5) gm/dL Hct (39.0-53.0) % RDW (11.5-15.5) % Plt Count (150-450) k/uL Sodium (137-145) mmol/L BUN (9-20) mg/dL POC Glucose (mg/dL) 125 H 157 H 137 H (75-99) mg/dL Calcium (8.4-10.2) mg/dL 06/03/16 06/03/16 06/03/16 Range/Units 05:11 05:11 07:42 RBC 2.91 L (4.30-5.90) m/uL Hgb 9.0 L (13.0-17.5) gm/dL Hct 28.3 L (39.0-53.0) % RDW 16.9 H (11.5-15.5) % Plt Count 78 L (150-450) k/uL Sodium 133 L (137-145) mmol/L BUN 32 H (9-20) mg/dL POC Glucose (mg/dL) 104 H (75-99) mg/dL Calcium 8.1 L (8.4-10.2) mg/dL Assessment and Plan Plan: 1. Atrial flutter with rapid ventricular response with previous history of electrical cardioversions status post ablation on May 31. Patient has been seen by cardiology. Continue amiodarone and eliquis. He did receive bolus dose of Cardizem but due to hypotension, Cardizem drip was not started. 2. Coronary artery disease status post coronary artery bypass graft with QUEZADA to LAD, SVG to the diagonal branch, SVG to obtuse marginal branch, SVG to RCA with severe LV dysfunction. 3. Moderate to severe aortic valve stenosis status post bioprosthetic aortic valve replacement. Stable at this point in time. 4. Hypertension. Currently hypotensive. Patient is normally on Coreg 3.125 mg every 12 hours, Lasix 20 mg daily, lisinopril 2.5 mg daily. Patient has been hypotensive and parameters in place for his antihypertensive medications. 5. Hyperlipidemia. Continue Lipitor. 6. Medical debility. Return to [facility] with the patient is more stable. 7. COPD currently stable. Continue albuterol as needed. 8. 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 9. Chronic diastolic heart failure, last ELIZABETH performed 05/09/2016 ejection fraction 45-50%. Continue Lasix 20 mg daily with potassium supplement. 7. Acute exacerbation of diastolic heart failure. Patient was started on Lasix 40 mg IV every 12 hours. 8. Diabetes mellitus type 2, uncontrolled with hypoglycemia. Patient is on D5W. Hypoglycemic medications are on hold. 9. Postprocedural hypotension, unexpected. Patient is currently on dopamine drip. Patient was transferred to the intensive care unit and consult with Dr. Marin. 10. DVT prophylaxis. Eliquis. 11. GI prophylaxis. Continue patient on Protonix 40 mg orally once every day. 12. Thrush. Nystatin started. CODE STATUS is full code. Discharge plan: Return to [facility] Impression and plan of care have been directed as dictated by the signing physician. Diane Young nurse practitioner acting as scribe for signing physician. Time with Patient: Greater than 30
[2016-06-03] MEDS: AMIODARONE 450 MG in DEXTROSE 5% IN WATER 250 ML IV SCH ×6 (11:56→20:06)
[2016-06-03] MEDS: MULTIVITAMINS, THERA 1 EACH TAB PO SCH (12:01)
[2016-06-03] MEDS: FERROUS SULFATE 325 MG TAB PO SCH (12:01)
[2016-06-03] MEDS: THIAMINE 100 MG TAB PO SCH ×2 (12:01→18:48)
[2016-06-03] MEDS: NYSTATIN 100,000 UNIT/ML SUSP 500,000 UNIT/5 ML CUP PO SCH ×3 (12:02→20:00)
[2016-06-03 12:06] LABS: Glucose,Whole Blood 197 mg/dL (75-99)
[2016-06-03 13:37] LABS: Glucose,Whole Blood 172 mg/dL (75-99)
--- NOTE | 2016-06-03 15:11 | PN ---
INTERVAL HISTORY: The patient continued to be lethargic and no major events reported by nursing staff. The patient complaining of pain in his right groin area. PHYSICAL EXAMINATION: Revealed stable vital signs. Lungs diminished bilaterally. CARDIOVASCULAR: S1, S2. ABDOMEN: Soft, nontender. Positive bowel sounds in all four quadrants. PSYCHIATRY: Alert and oriented, following commands. Imaging and labs: Reviewed. ASSESSMENT: 1. Paroxysmal atrial fibrillation, the patient currently with rate control. 2. Cardiology is following. We will follow-up with their recommendation. 3. Groin pain, likely secondary to the procedure. Examination revealed normal findings with minimum tenderness on physical examination. Will monitor closely. Consider ultrasound if the patient develops any swelling or ( ) on the area. 4. Anemia, continue periodic monitoring. 5. Debility we will have PT/OT evaluate the patient.
--- NOTE | 2016-06-03 15:19 | PN ---
ADDENDUM: Please date previously dictated report as June 02, 2016.
--- NOTE | 2016-06-03 15:22 | PN ---
DATE OF SERVICE: 06/03/2016. He continues to have shortness of breath and is on 6 liters by nasal cannula. His O2 sats are in the mid 90s. He was somewhat hypotensive and his dose of Lasix had been decreased by cardiology. He went into atrial fibrillation /flutter with rapid ventricular response and had been started on amiodarone and was digitalized as well. On physical examination, his blood pressure is 111/63, respiratory rate 26, pulse 117. He is afebrile with a temperature of 98.5. HEENT reveals pupils are equal. Mild prominence of jugular veins. Chest reveals scattered Velcro-type crackles. Cardiovascular system reveals an S1 and S2. No S3, no S4. Short systolic murmur. ABDOMEN: Soft. There is no pedal edema. Chest x-ray shows bilateral interstitial infiltrates with some fluffiness to the infiltrates as well. LABS: Reveal a white count of 9.3, hemoglobin 9. Sodium 133, potassium 4.1, chloride 98, bicarb 29, BUN 32, creatinine 0.91. Calcium of 8.1, phosphorus 3.5, magnesium 1.9. IMPRESSION: 1. Recalcitrant atrial fibrillation/flutter. 2. Acute myocardial infarction, which is recent status post coronary artery bypass. 3. Lung fibrosis baseline, etiology which is unclear. 4. Possible hypersensitivity pneumonitis and bronchospasm. 5. Congestive heart failure, fluid status may be optimal at this time. From a pulmonary standpoint at this time, agree with transferring him out of the ICU. Would agree with holding Eliquis for one more day as his hemoglobin is marginal. Would, however start him on a short course of IV Solu-Medrol to see if we can optimize the inflammatory status of his airways and his parenchyma. Would follow his x-ray and follow him clinically closely. He would need amiodarone only for a short while. Depending on how he does, we shall make further changes to his care.
[2016-06-03 16:45] LABS: Glucose,Whole Blood 170 mg/dL (75-99)
[2016-06-03] MEDS: methylPREDNISolone SOD SUCCI 125 MG/2 ML VIAL IV SCH ×2 (17:40→18:47)
[2016-06-03] MEDS: TAMSULOSIN 0.4 MG CAP.ER.24H PO SCH (18:48)
[2016-06-03] MEDS: ATORVASTATIN 40 MG TAB PO SCH (19:58)
[2016-06-03] MEDS: SENNOSIDES 8.6 MG TAB PO SCH (19:59)
[2016-06-03] MEDS: MELATONIN 3 MG TABLET PO SCH (19:59)
[2016-06-03] MEDS: QUEtiapine 25 MG TAB PO SCH (19:59)
[2016-06-03] MEDS: SODIUM CHLORIDE 0.9% 1,000 ML IV SCH (20:09)
[2016-06-03 20:18] LABS: Glucose,Whole Blood 171 mg/dL (75-99)
[2016-06-04] MEDS: methylPREDNISolone SOD SUCCI 125 MG/2 ML VIAL IV SCH ×4 (01:16→17:28)
[2016-06-04 03:11] LABS: Glucose,Whole Blood 212 mg/dL (75-99)
[2016-06-04 06:06] LABS: Glucose,Whole Blood 241 mg/dL (75-99)
[2016-06-04] MEDS: INSULIN LISPRO (humaLOG) 300 UNIT/3 ML VIAL SQ SCH ×3 (06:17→17:31)
[2016-06-04] MEDS: PANTOPRAZOLE 40 MG TABLET PO SCH (06:17)
[2016-06-04 06:34] LABS: Anisocytosis Slight; CH 30.7; CHCM 31.5; HCT 29.8 % (39.0-53.0); HDW 3.39; HGB 9.6 gm/dL (13.0-17.5); Hypochromasia Moderate; MCH 31.6 pg (25.0-35.0); MCHC 32.2 g/dL (31.0-37.0); MCV 98.3 fL (80.0-100.0); Macrocytosis Slight; Mean Platelet Volume 7.7; RBC 3.03 m/uL (4.30-5.90); RDW 16.6 % (11.5-15.5); WBC 9.7 k/uL (3.8-10.6)
[2016-06-04 06:46] LABS: Anion Gap 11 mmol/L; Blood Urea Nitrogen 28 mg/dL (9-20); Calcium 8.4 mg/dL (8.4-10.2); Carbon Dioxide 26 mmol/L (22-30); Chloride 95 mmol/L (98-107); Glucose 228 mg/dL (74-99); Magnesium 2.2 mg/dL (1.6-2.3); Non-African American GFR(MDRD) >60 (>60 ml/min/1.73 sqM); Phosphorous 4.4 mg/dL (2.5-4.5); Potassium 4.8 mmol/L (3.5-5.1); Sodium 132 mmol/L (137-145)
[2016-06-04] MEDS: BUDESONIDE 0.5 MG/2 ML NEBU INHALATION SCH ×2 (08:09→21:29)
[2016-06-04] MEDS: ALBUTEROL NEBULIZED 2.5 MG/3 ML INHALATION PRN ×2 (08:09→11:43)
[2016-06-04] MEDS ORDERED: FUROSEMIDE 10 MG/ML 4 ML VIAL IV SCH (09:00)
--- NOTE | 2016-06-04 09:25 | P.PN ---
Subjective This is a 66-year-old gentleman who is followed by Dr. Chaitanya Parr on an outpatient basis. On 04/22/2016 the patient presented to the emergency department at [facility], with complaints of dyspnea. The patient denied complaints of any chest pain, and nausea. On presentation to the emergency department at [facility], a 12-lead EKG was completed which showed him to have some ST elevation in his inferior leads. Subsequently, this patient was seen and examined by Dr. Scherer from [facility] and the patient was transferred to [facility] for further evaluation and workup. The patient was admitted to the hospital and underwent an urgent cardiac catheterization by Dr. Scherer, which demonstrated the patient to have a totally occluded right coronary artery, 80% stenosis to a circumflex coronary artery, a 90% stenosis to his proximal left anterior descending coronary artery, and a 60 % stenosis to his mid left anterior descending coronary artery. The patient also underwent a 2-D echocardiogram, which demonstrated mild concentric left ventricular hypertrophy, mild mitral regurgitation, mild tricuspid regurgitation , an overall left ventricular systolic function severely impaired with an ejection fraction of 25-30%, [id number] aortic stenosis with mitral aortic regurgitation, and a peak/mean gradient across the aortic valve of 42.44 mmHg and 22.56 mmHg. The above-mentioned studies were reviewed with the patient by Dr. Scherer and by Dr. Hardy and an urgent coronary artery bypass grafting surgery with aortic valve replacement was done using QUEZADA to LAD saphenous venous graft to the diagonal branch, SVG to the obtuse marginal branch , and 7 as well as SVG to the RCA, along with aortic valve bioprosthesis, his hospital course was completed by acute bronchitis with Serratia marcescens as well as tachybradycardia syndrome and eventually he was transferred to [facility] for physical therapy rehabilitation. Patient was readmitted to [facility] on May 18 for atrial flutter with rapid ventricular response and underwent cardioversion on 2015. He was also treated for acute on chronic diastolic heart failure. He was discharged back to [facility] on May 24. Patient stated that he was in fine up until today when he started feeling short of breath and that he was feeling off. He was transferred to [facility] emergency center where he was found to have an elevated heart rate and again in atrial flutter. His blood pressure was low and he received fluid boluses of 1-1/2 L total. Troponins were 0.060, 0.074, 0.075. ProBNP was 5590. Urinalysis was negative. Patient was seen by cardiology with plan to have Dr. Peck evaluate for possible cardiac ablation. Patient is seen at this time in the emergency room as he is waiting for a selective care bed to be made 06/03: He is status post EP study and ablation done on May 31. He was hypotensive following the procedure and was placed on dopamine and transferred to the intensive care unit and consult requested with Dr. Marin. He has subsequently been weaned off dopamine. This morning he has again in atrial fibrillation with heart rate running 116-120. Patient is status post 1 unit packed RBCs given on June 01 for hemoglobin of 8.0. Patient is complaining of a sore throat and thrush noted and started on nystatin. Rivers catheter has remained in place. Urine output has been good. 06/04: He has been transferred to the [facility] care. Dr. Scherer added digoxin and amiodaronedrip. Anticoagulation is on hold due to hemoglobin of 9. Repeat hemoglobin today is 9.6. Blood sugars are again elevated running between 171 and 241. No changes in insulin due to his previous hypoglycemic episodes. Patient was started on Solu-Medrol yesterday. This morning, patient has increasing shortness of breath and his pulse ox was down to 72. Patient is now on a nonrebreather. Patient has been removing his nasal cannula. Objective - Vital Signs Vital signs: Vital Signs Temp 97.2 F L 06/04/16 04:00 Pulse 121 H 06/04/16 04:00 Resp 22 06/04/16 04:00 BP 124/68 06/04/16 04:00 Pulse Ox 92 L 06/04/16 04:00 Intake & Output 06/03/16 06/04/16 06/04/16 18:59 06:59 18:59 Intake Total 1795.134 123.876 Output Total 1525 825 Balance 270.134 -701.124 Weight 70 kg Intake: IV 280 100 Sodium Chloride 0.9% 1, 280 100 000 ml @ 20 mls/hr IV . Q24H [facility] Rx#:[id number] Intake, IV Titration 935.134 23.876 Amount Amiodarone 450 mg In 39.134 23.876 Dextrose 5% in Water 250 ml @ 1 MG/MIN 34.53 mls/ hr IV .Q7H31M [facility] Rx#: [id number] Dextrose 5% in Water 100 398 ml @ 618 mls/hr IV .Q10M ONE with Amiodarone 150 mg Rx#:[id number] Magnesium Sulfate-D5w Pmx 498 1 gm In Dextrose/Water 1 100ml.bag @ 100 mls/hr IVPB Q1H [facility] Rx#: [id number] Oral 580 Output: Urine 1525 825 Other: Voiding Method Indwelling Catheter Indwelling Catheter # Voids 1 - Exam Gen: This is a 66-year-old male. He is sitting up on stretcher and appears to be in no acute distress. monitor technician is atrial flutter. HEENT: Head is atraumatic, normocephalic. Pupils equal, round. Sclerae is anicteric. + Thrush. NECK: Supple. No JVD. No lymphadenopathy. No thyromegaly. LUNGS: Diminished bilateral bases but otherwise clear to auscultation. No wheezes or rhonchi. No intercostal retractions. HEART: Irregular rate and rhythm. Systolic murmur. ABDOMEN: Soft. Bowel sounds are present. No masses. No tenderness. EXTREMITIES: 1+ pedal edema bilaterally slightly worse on the right. Significant ecchymosis to the right leg. No calf tenderness. NEUROLOGICAL: Patient is awake, alert and oriented x3. Cranial nerves 2 through 12 are grossly intact. - Labs CBC & Chem 7: 06/04/16 05:18 06/04/16 05:18 Labs: Abnormal Lab Results - Last 24 Hours (Table) 06/03/16 06/03/16 06/03/16 Range/Units 07:42 12:04 13:16 RBC (4.30-5.90) m/uL Hgb (13.0-17.5) gm/dL Hct (39.0-53.0) % RDW (11.5-15.5) % Plt Count (150-450) k/uL Sodium (137-145) mmol/L Chloride (98-107) mmol/L BUN (9-20) mg/dL Glucose (74-99) mg/dL POC Glucose (mg/dL) 104 H 197 H 172 H (75-99) mg/dL 06/03/16 06/03/16 06/04/16 Range/Units 16:43 20:17 03:09 RBC (4.30-5.90) m/uL Hgb (13.0-17.5) gm/dL Hct (39.0-53.0) % RDW (11.5-15.5) % Plt Count (150-450) k/uL Sodium (137-145) mmol/L Chloride (98-107) mmol/L BUN (9-20) mg/dL Glucose (74-99) mg/dL POC Glucose (mg/dL) 170 H 171 H 212 H (75-99) mg/dL 06/04/16 06/04/16 06/04/16 Range/Units 05:18 05:18 06:05 RBC 3.03 L (4.30-5.90) m/uL Hgb 9.6 L (13.0-17.5) gm/dL Hct 29.8 L (39.0-53.0) % RDW 16.6 H (11.5-15.5) % Plt Count 79 L (150-450) k/uL Sodium 132 L (137-145) mmol/L Chloride 95 L (98-107) mmol/L BUN 28 H (9-20) mg/dL Glucose 228 H (74-99) mg/dL POC Glucose (mg/dL) 241 H (75-99) mg/dL Assessment and Plan Plan: 1. Atrial flutter with rapid ventricular response with previous history of electrical cardioversions status post ablation on May 31. Patient has been seen by cardiology. Continue amiodarone and eliquis. He did receive bolus dose of Cardizem but due to hypotension, Cardizem drip was not started. 2. Coronary artery disease status post coronary artery bypass graft with QUEZADA to LAD, SVG to the diagonal branch, SVG to obtuse marginal branch, SVG to RCA with severe LV dysfunction. 3. Moderate to severe aortic valve stenosis status post bioprosthetic aortic valve replacement. Stable at this point in time. 4. Hypertension. Currently hypotensive. Patient is normally on Coreg 3.125 mg every 12 hours, Lasix 20 mg daily, lisinopril 2.5 mg daily. Patient has been hypotensive and parameters in place for his antihypertensive medications. 5. Hyperlipidemia. Continue Lipitor. 6. Medical debility. Return to [facility] with the patient is more stable. 7. COPD currently stable. Continue albuterol as needed. 8. 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 9. Chronic diastolic heart failure, last ELIZABETH performed 05/09/2016 ejection fraction 45-50%. Continue Lasix 20 mg daily with potassium supplement. 7. Acute exacerbation of diastolic heart failure. Patient was started on Lasix 40 mg IV every 12 hours. 8. Diabetes mellitus type 2, uncontrolled with hypoglycemia. Patient is on D5W. Hypoglycemic medications are on hold. 9. Postprocedural hypotension, unexpected. Patient is currently on dopamine drip. Patient was transferred to the intensive care unit and consult with Dr. Marin. 10. DVT prophylaxis. Eliquis. 11. GI prophylaxis. Continue patient on Protonix 40 mg orally once every day. 12. Thrush. Nystatin started. 13.chronic hypoxic respiratory failure normally on nasal cannula. Patient currently on nonrebreather. CODE STATUS is full code. Discharge plan: Return to [facility] Impression and plan of care have been directed as dictated by the signing physician. Diane Young nurse practitioner acting as scribe for signing physician. Time with Patient: Greater than 30
[2016-06-04] MEDS: DIGOXIN 125 MCG TAB PO SCH (09:36)
[2016-06-04] MEDS: ASPIRIN 81 MG CHEW PO SCH (09:36)
[2016-06-04] MEDS: NYSTATIN 100,000 UNIT/ML SUSP 500,000 UNIT/5 ML CUP PO SCH ×3 (09:37→23:16)
[2016-06-04] MEDS: POTASSIUM CHLORIDE ER 20 MEQ TAB.ER PO SCH (09:38)
[2016-06-04 11:41] LABS: Glucose,Whole Blood 237 mg/dL (75-99)
--- NOTE | 2016-06-04 12:20 | P.PN ---
Subjective Principal diagnosis: Hypoxemia Patient seen and examined. Respiratory therapist is at bedside. Patient had an episode of desaturation this morning into the 70s. He did not rebound and was placed on nonrebreather. He states his breathing is worse today. He is coughing occasionally. He is also having anxiety. Objective - Vital Signs Vital signs: Vital Signs Temp 97 F L 06/04/16 08:00 Pulse 88 06/04/16 11:58 Resp 20 06/04/16 08:00 BP 140/70 06/04/16 08:00 Pulse Ox 92 L 06/04/16 08:12 Intake & Output 06/03/16 06/04/16 06/04/16 18:59 06:59 18:59 Intake Total 1795.134 123.876 Output Total 1525 825 Balance 270.134 -701.124 Weight 70 kg Intake: IV 280 100 Sodium Chloride 0.9% 1, 280 100 000 ml @ 20 mls/hr IV . Q24H [facility] Rx#:[id number] Intake, IV Titration 935.134 23.876 Amount Amiodarone 450 mg In 39.134 23.876 Dextrose 5% in Water 250 ml @ 1 MG/MIN 34.53 mls/ hr IV .Q7H31M [facility] Rx#: [id number] Dextrose 5% in Water 100 398 ml @ 618 mls/hr IV .Q10M ONE with Amiodarone 150 mg Rx#:[id number] Magnesium Sulfate-D5w Pmx 498 1 gm In Dextrose/Water 1 100ml.bag @ 100 mls/hr IVPB Q1H [facility] Rx#: [id number] Oral 580 Output: Urine 1525 825 Other: Voiding Method Indwelling Catheter Indwelling Catheter Indwelling Catheter # Voids 1 - Exam Gen.: Patient is alert and oriented 3, no acute distress Cardiovascular: Regular rate and rhythm, S1/S2 Lungs: Diminished breath sounds bilaterally with scattered crackles Abdomen: Soft nontender nondistended positive bowel sounds Extremities: No edema, multiple areas of ecchymosis noted - Labs CBC & Chem 7: 06/04/16 05:18 06/04/16 05:18 Labs: Abnormal Lab Results - Last 24 Hours (Table) 06/03/16 06/03/16 06/03/16 Range/Units 13:16 16:43 20:17 RBC (4.30-5.90) m/uL Hgb (13.0-17.5) gm/dL Hct (39.0-53.0) % RDW (11.5-15.5) % Plt Count (150-450) k/uL Sodium (137-145) mmol/L Chloride (98-107) mmol/L BUN (9-20) mg/dL Glucose (74-99) mg/dL POC Glucose (mg/dL) 172 H 170 H 171 H (75-99) mg/dL 06/04/16 06/04/16 06/04/16 Range/Units 03:09 05:18 05:18 RBC 3.03 L (4.30-5.90) m/uL Hgb 9.6 L (13.0-17.5) gm/dL Hct 29.8 L (39.0-53.0) % RDW 16.6 H (11.5-15.5) % Plt Count 79 L (150-450) k/uL Sodium 132 L (137-145) mmol/L Chloride 95 L (98-107) mmol/L BUN 28 H (9-20) mg/dL Glucose 228 H (74-99) mg/dL POC Glucose (mg/dL) 212 H (75-99) mg/dL 06/04/16 06/04/16 Range/Units 06:05 11:28 RBC (4.30-5.90) m/uL Hgb (13.0-17.5) gm/dL Hct (39.0-53.0) % RDW (11.5-15.5) % Plt Count (150-450) k/uL Sodium (137-145) mmol/L Chloride (98-107) mmol/L BUN (9-20) mg/dL Glucose (74-99) mg/dL POC Glucose (mg/dL) 241 H 237 H (75-99) mg/dL Assessment and Plan Plan: Hypotension, possibly cardiogenic vs hypovolemic shock Acute exacerbation of CHF, diastolic, ejection fraction 45-50% Atrial fibrillation with rapid ventricular rate, status post ablation Pulmonary edema on CXR Small to trace pericardial effusion Hypoglycemic reaction, Hx DM2 Coronary artery disease, status post CABG and aortic valve replacement Hx hypertension Dyslipidemia COPD Pulmonary fibrosis with prior exposure to asbestos Anemia, macrocytic Thrombocytopenia O2 to maintain saturation greater than equal to 88% Diuresis: Lasix 40mg IV Q12 hours Schedule duo nebs Solu-Medrol Check and chest x-ray I's and O's and daily weights GI and DVT prophylaxis: Eliquis (on hold due to bleeding), Protonix Cardiology recommendations Consult PT and OT
[2016-06-04] MEDS: guaiFENesin 600 MG TABLET.ER PO SCH (12:28)
[2016-06-04] MEDS: AMIODARONE 450 MG in DEXTROSE 5% IN WATER 250 ML IV SCH ×4 (12:31→20:00)
[2016-06-04] MEDS: FERROUS SULFATE 325 MG TAB PO SCH (12:32)
[2016-06-04] MEDS: MULTIVITAMINS, THERA 1 EACH TAB PO SCH (12:33)
[2016-06-04] MEDS: THIAMINE 100 MG TAB PO SCH ×2 (12:33→17:27)
[2016-06-04] MEDS: AMIODARONE 200 MG TAB PO SCH ×2 (13:06→18:55)
--- NOTE | 2016-06-04 15:42 | P.PN ---
Subjective This is a pleasant 66-year-old gentleman with a known CAD and status post CABG along with aortic valve replacement who was admitted to the hospital this time with atrial flutter and rapid ventricular response. He underwent an atrial flutter ablation few days ago. He was doing good until this yesterday when he went back into an A. fib with RVR and converted back into normal sinus mechanism. I'll follow-up with him today, he is feeling worse in terms of shortness of breath. Denies having any chest pain or chest discomfort. Earlier this morning he was having low oxygen saturation and he was started on nonrebreather. Beside that he continues to be in a sinus mechanism after he went into an A. fib and converted to sinus mechanism. I I will obtain a chest x-ray. I am going to increase the dose of Lasix to 40 mg IV twice a day. Continue the amiodarone by mouth along with a digoxin as well as. We will continue holding the anticoagulation for 1 more day and probably starting at tomorrow. Objective - Vital Signs Vital signs: Vital Signs Temp 97 F L 06/04/16 12:00 Pulse 81 06/04/16 12:00 Resp 20 06/04/16 12:00 BP 140/71 06/04/16 12:00 Pulse Ox 97 06/04/16 12:00 Intake & Output 06/03/16 06/04/16 06/04/16 18:59 06:59 18:59 Intake Total 1795.134 123.876 200 Output Total 1525 825 Balance 270.134 -701.124 200 Weight 70 kg Intake: IV 280 100 100 Sodium Chloride 0.9% 1, 280 100 100 000 ml @ 20 mls/hr IV . Q24H [facility] Rx#:[id number] Intake, IV Titration 935.134 23.876 Amount Amiodarone 450 mg In 39.134 23.876 Dextrose 5% in Water 250 ml @ 1 MG/MIN 34.53 mls/ hr IV .Q7H31M [facility] Rx#: [id number] Dextrose 5% in Water 100 398 ml @ 618 mls/hr IV .Q10M ONE with Amiodarone 150 mg Rx#:[id number] Magnesium Sulfate-D5w Pmx 498 1 gm In Dextrose/Water 1 100ml.bag @ 100 mls/hr IVPB Q1H [facility] Rx#: [id number] Oral 580 100 Output: Urine 1525 825 Other: Voiding Method Indwelling Catheter Indwelling Catheter Indwelling Catheter # Voids 1 # Bowel Movements 1 - Constitutional General appearance: Present: mild distress - Respiratory Respiratory: bilateral: CTA - Cardiovascular Rhythm: regular Heart sounds: normal: S1, S2 Abnormal Heart Sounds: Present: systolic murmur - Labs CBC & Chem 7: 06/04/16 05:18 06/04/16 05:18 Labs: Abnormal Lab Results - Last 24 Hours (Table) 06/03/16 06/03/16 06/04/16 Range/Units 16:43 20:17 03:09 RBC (4.30-5.90) m/uL Hgb (13.0-17.5) gm/dL Hct (39.0-53.0) % RDW (11.5-15.5) % Plt Count (150-450) k/uL Sodium (137-145) mmol/L Chloride (98-107) mmol/L BUN (9-20) mg/dL Glucose (74-99) mg/dL POC Glucose (mg/dL) 170 H 171 H 212 H (75-99) mg/dL 06/04/16 06/04/16 06/04/16 Range/Units 05:18 05:18 06:05 RBC 3.03 L (4.30-5.90) m/uL Hgb 9.6 L (13.0-17.5) gm/dL Hct 29.8 L (39.0-53.0) % RDW 16.6 H (11.5-15.5) % Plt Count 79 L (150-450) k/uL Sodium 132 L (137-145) mmol/L Chloride 95 L (98-107) mmol/L BUN 28 H (9-20) mg/dL Glucose 228 H (74-99) mg/dL POC Glucose (mg/dL) 241 H (75-99) mg/dL 06/04/16 Range/Units 11:28 RBC (4.30-5.90) m/uL Hgb (13.0-17.5) gm/dL Hct (39.0-53.0) % RDW (11.5-15.5) % Plt Count (150-450) k/uL Sodium (137-145) mmol/L Chloride (98-107) mmol/L BUN (9-20) mg/dL Glucose (74-99) mg/dL POC Glucose (mg/dL) 237 H (75-99) mg/dL Assessment and Plan Plan: Assessment #1 acute respiratory failure #2 paroxysmal atrial fibrillation #3 status post CABG and AVR #4 anemia seems to be stable #5 multiple comorbid conditions Plan #1 chest x-ray #2 increase the dose of Lasix #3 continue following up with him
[2016-06-04] MEDS: IPRATROPIUM-ALBUTEROL 3 ML NEB INHALATION SCH ×2 (16:17→21:29)
--- NOTE | 2016-06-04 16:25 | XR ---
EXAMINATION TYPE: XR chest 1V portable DATE OF EXAM: 06/04/2016 4:10 PM COMPARISON: 06/02/2016 HISTORY: Hypoxemia TECHNIQUE: Single frontal view of the chest is obtained. FINDINGS: There is diffuse severe pulmonary edema. Heart appears enlarged. There are sternal wires. There are chest leads. IMPRESSION: Severe pulmonary edema that could relate to RDS. No change compared to last exam. Heart failure is not excluded but I think is less likely in view of the lack of any significant pleural flu id.
[2016-06-04] MEDS ORDERED: FUROSEMIDE 10 MG/ML 10 ML VIAL IV STA (16:32)
[2016-06-04 17:04] LABS: Glucose,Whole Blood 211 mg/dL (75-99)
[2016-06-04] MEDS: TAMSULOSIN 0.4 MG CAP.ER.24H PO SCH (17:29)
[2016-06-04] MEDS: SODIUM CHLORIDE 0.9% 1,000 ML IV SCH ×2 (17:32→23:50)
[2016-06-04 18:39] LABS: Glucose,Whole Blood 263 mg/dL (75-99)
[2016-06-04] MEDS: METOPROLOL TARTRATE 25 MG TAB PO SCH (18:57)
[2016-06-04] MEDS ORDERED: DEXTROSE 5% IN WATER 100 ML with AMIODARONE 150 MG IV ONE (19:17)
[2016-06-04] MEDS ORDERED: LORazepam 2 MG/ML SYRINGE IV PRN (19:48)
--- NOTE | 2016-06-04 20:16 | XR ---
EXAMINATION TYPE: XR chest 1V portable DATE OF EXAM: 06/04/2016 8:10 PM COMPARISON: Today HISTORY: Dyspnea TECHNIQUE: Single frontal view of the chest is obtained. FINDINGS: There is extensive airspace disease throughout the lungs which appears worse than examinat ion at 4:00 PM. Heart is enlarged. There are sternal wires. There are chest leads. IMPRESSION: There is severe pulmonary edema that is slightly worse than the exam 4 hours ago. This c ould relate to RDS or congestive heart failure.
[2016-06-04] MEDS: PROPOFOL 500 MG in EMPTY BAG 1 BAG IV SCH (20:40)
[2016-06-04 20:46] LABS: ABG Base Excess -6.3 mmol/L; ABG HCO3 19 mmol/L (21-25); ABG PCO2 41 mmHg (35-45); ABG PH 7.29 (7.35-7.45); ABG PO2 28 mmHg (83-108); ABG TCO2 20 mmol/L (19-24)
[2016-06-04] MEDS ORDERED: PROPOFOL 50 ML IV ONE (20:57)
--- NOTE | 2016-06-04 21:27 | XR ---
EXAMINATION TYPE: XR chest 1V portable DATE OF EXAM: 06/04/2016 9:21 PM COMPARISON: Today HISTORY: Tube placement TECHNIQUE: Single frontal view of the chest is obtained. FINDINGS: There is severe pulmonary edema. There is endotracheal tube that appears in good position. There is a nasogastric tube with the tip in the stomach. There is no sign of pneumothorax. Heart is enlarged. There are chest leads. IMPRESSION: Endotracheal tube appears in fairly good position 3 cm from the zoran. Severe pulmonary edema.
[2016-06-04] MEDS ORDERED: IV VANCOMYCIN PER PHARMACY 1 EACH MISC MISCELLANE PRN (21:41)
[2016-06-04] MEDS ORDERED: PIPERACILLIN-TAZOBACTAM 3.375 GM in DEXTROSE/WATER 1 50ML.BAG IVPB SCH (22:00)
[2016-06-04] MEDS ORDERED: VANCOMYCIN 1,250 MG in SODIUM CHLORIDE 0.9% 250 ML IVPB SCH (22:00)
[2016-06-04 22:05] LABS: ABG Base Excess -6.9 mmol/L; ABG HCO3 18 mmol/L (21-25); ABG PCO2 39 mmHg (35-45); ABG PH 7.29 (7.35-7.45); ABG PO2 98 mmHg (83-108); ABG TCO2 20 mmol/L (19-24)
[2016-06-04] MEDS: CHLORHEXIDINE GLUCONATE 15 ML CUP MUCOUS MEM SCH (23:05)
[2016-06-04] MEDS: SENNOSIDES 8.6 MG TAB PO SCH (23:06)
[2016-06-04] MEDS ORDERED: SODIUM CHLORIDE 0.9% 250 ML IV ONE (23:29)
[2016-06-04] MEDS ORDERED: SODIUM CHLORIDE 0.9% 500 ML IV ONE (23:39)
[2016-06-05] MEDS ORDERED: NOREPINEPHRINE 4 MG-0.9% NS PMX 250 ML IV ONE (00:10)
[2016-06-05] MEDS: NYSTATIN 100,000 UNIT/ML SUSP 500,000 UNIT/5 ML CUP PO SCH ×2 (00:27→09:44)
[2016-06-05] MEDS: FUROSEMIDE 10 MG/ML 4 ML VIAL IV SCH ×3 (00:27→21:47)
[2016-06-05] MEDS ORDERED: ATROPINE SULFATE 0.1 MG/ML 10ML SYRINGE ONE (00:56)
[2016-06-05] MEDS: PIPERACILLIN-TAZOBACTAM 3.375 GM in DEXTROSE/WATER 1 50ML.BAG IVPB SCH ×3 (02:10→17:15)
[2016-06-05] MEDS: guaiFENesin 600 MG TABLET.ER PO SCH ×3 (02:15→21:47)
[2016-06-05] MEDS: QUEtiapine 25 MG TAB PO SCH ×2 (02:15→21:48)
[2016-06-05] MEDS: MELATONIN 3 MG TABLET PO SCH ×2 (02:15→21:48)
[2016-06-05] MEDS: ATORVASTATIN 40 MG TAB PO SCH ×2 (02:15→21:47)
[2016-06-05 02:21] LABS: Glucose,Whole Blood 253 mg/dL (75-99)
[2016-06-05] MEDS: INSULIN LISPRO (humaLOG) 300 UNIT/3 ML VIAL SQ SCH ×4 (02:22→17:49)
[2016-06-05] MEDS: AMIODARONE 450 MG in DEXTROSE 5% IN WATER 250 ML IV SCH ×4 (03:21→16:58)
[2016-06-05] MEDS: methylPREDNISolone SOD SUCCI 125 MG/2 ML VIAL IV SCH ×4 (03:21→17:17)
[2016-06-05 04:16] LABS: Anisocytosis Slight; CH 30.7; CHCM 31.5; HDW 3.45; HGB 8.6 gm/dL (13.0-17.5); Hypochromasia Moderate; MCH 30.3 pg (25.0-35.0); MCHC 30.9 g/dL (31.0-37.0); MCV 98.1 fL (80.0-100.0); Macrocytosis Slight; Poikilocytosis Slight; RBC 2.85 m/uL (4.30-5.90); RDW 16.7 % (11.5-15.5); WBC 15.4 k/uL (3.8-10.6)
[2016-06-05 04:28] LABS: Anion Gap 12 mmol/L; Blood Urea Nitrogen 39 mg/dL (9-20); Calcium 7.9 mg/dL (8.4-10.2); Carbon Dioxide 25 mmol/L (22-30); Chloride 97 mmol/L (98-107); Glucose 214 mg/dL (74-99); Magnesium 2.1 mg/dL (1.6-2.3); Non-African American GFR(MDRD) 55 (>60 ml/min/1.73 sqM); Phosphorous 5.8 mg/dL (2.5-4.5); Potassium 4.8 mmol/L (3.5-5.1); Sodium 134 mmol/L (137-145)
[2016-06-05] MEDS: PROPOFOL 500 MG in EMPTY BAG 1 BAG IV SCH ×3 (05:27→22:16)
[2016-06-05 05:36] LABS: ABG Base Excess 0.3 mmol/L; ABG HCO3 25 mmol/L (21-25); ABG PCO2 44 mmHg (35-45); ABG PH 7.37 (7.35-7.45); ABG PO2 99 mmHg (83-108); ABG TCO2 26 mmol/L (19-24)
[2016-06-05 05:53] LABS: Glucose,Whole Blood 205 mg/dL (75-99)
[2016-06-05] MEDS: IPRATROPIUM-ALBUTEROL 3 ML NEB INHALATION SCH ×5 (07:44→19:39)
[2016-06-05] MEDS: BUDESONIDE 0.5 MG/2 ML NEBU INHALATION SCH ×2 (07:44→19:39)
--- NOTE | 2016-06-05 08:15 | XR ---
EXAMINATION TYPE: XR chest 1V portable DATE OF EXAM: 06/05/2016 6:48 AM COMPARISON: Prior chest x-ray 04 June 2016 HISTORY: Shortness of breath TECHNIQUE: Single frontal view of the chest is obtained. FINDINGS: There is some improvement in the alveolar edema suspected accounting for differences in te chnique. Endotracheal tube, NG tube are overlying appropriate positions. No evident pneumothorax or p leural effusion. Heart size remains increased, patient is post median sternotomy. IMPRESSION: There may be some improvement in volume status.
[2016-06-05] MEDS: CHLORHEXIDINE GLUCONATE 15 ML CUP MUCOUS MEM SCH ×2 (09:40→21:47)
[2016-06-05] MEDS: FERROUS SULFATE 325 MG TAB PO SCH (09:41)
[2016-06-05] MEDS: METOPROLOL TARTRATE 25 MG TAB PO SCH ×4 (09:42→21:49)
[2016-06-05] MEDS: ASPIRIN 81 MG CHEW PO SCH (09:43)
[2016-06-05] MEDS: PANTOPRAZOLE 40 MG/10 ML VIAL IVP SCH (09:44)
[2016-06-05] MEDS: DIGOXIN 125 MCG TAB PO SCH (09:45)
[2016-06-05] MEDS: THIAMINE 100 MG TAB PO SCH ×2 (09:45→17:16)
[2016-06-05] MEDS: MULTIVITAMINS, THERA 1 EACH TAB PO SCH (09:45)
[2016-06-05] MEDS: POTASSIUM CHLORIDE ER 20 MEQ TAB.ER PO SCH (09:57)
[2016-06-05 12:12] LABS: Glucose,Whole Blood 173 mg/dL (75-99)
--- NOTE | 2016-06-05 12:40 | P.PN ---
Subjective Principal diagnosis: Hypoxic respiratory failure Patient seen and examined in the ICU with nursing staff at bedside and family at bedside. The patient was intubated overnight for hypoxia and respiratory distress. His chest x-ray showed worsening pulmonary edema. The family is asking if the patient can be transferred to a different hospital. The patient is on 5 g of Levophed. His oxygenation is starting to improve. Objective - Vital Signs Vital signs: Vital Signs Temp 98.4 F 06/05/16 08:00 Pulse 57 L 06/05/16 12:03 Resp 15 06/05/16 11:50 BP 80/53 06/04/16 21:42 Pulse Ox 98 06/05/16 10:00 Intake & Output 06/04/16 06/05/16 06/05/16 18:59 06:59 18:59 Intake Total 500 1862.409 107.25 Output Total 915 225 Balance 500 947.409 -117.75 Weight 83.2 kg Intake: IV 100 240 60 Sodium Chloride 0.9% 1, 100 240 60 000 ml @ 20 mls/hr IV . Q24H [facility] Rx#:[id number] Intake, IV Titration 1622.409 47.25 Amount Amiodarone 450 mg In 233.359 Dextrose 5% in Water 250 ml @ 1 MG/MIN 34.53 mls/ hr IV .Q7H31M [facility] Rx#: [id number] Dextrose 5% in Water 100 100 ml @ 618 mls/hr IV .Q10M ONE with Amiodarone 150 mg Rx#:[id number] Norepinephrine 4 mg In 239.050 Sodium Chloride 0.9% 250 ml @ Titrate IV .Q0M [facility] Rx#:[id number] Propofol 500 mg In Empty 50.00 47.25 Bag 1 bag @ Titrate IV . Q0M [facility] Rx#:[id number] Sodium Chloride 0.9% 250 250 ml @ 999 mls/hr IV .Q16M [facility] Rx#:[id number] Sodium Chloride 0.9% 500 500 ml @ 999 mls/hr IV .Q31M [facility] Rx#:[id number] Vancomycin 1,250 mg In 250 Sodium Chloride 0.9% 250 ml @ 125 mls/hr IVPB Q12H [facility] Rx#:[id number] Oral 400 Output: Urine 915 225 Other: Voiding Method Indwelling Catheter Indwelling Catheter Indwelling Catheter # Bowel Movements 1 ABP, PAP, CO, CI - Last Documented Arterial Blood Pressure 107/55 - Exam Gen.: Patient is sedated on ventilator Cardiovascular: Regular rate and rhythm, S1/S2 Lungs: Coarse breath sounds bilaterally Abdomen: Soft nontender nondistended positive bowel sounds Extremities: 1+ pitting edema - Labs CBC & Chem 7: 06/05/16 04:10 06/05/16 04:10 Labs: Abnormal Lab Results - Last 24 Hours (Table) 06/04/16 06/04/16 06/04/16 Range/Units 17:02 18:37 20:40 WBC (3.8-10.6) k/uL RBC (4.30-5.90) m/uL Hgb (13.0-17.5) gm/dL Hct (39.0-53.0) % MCHC (31.0-37.0) g/dL RDW (11.5-15.5) % Plt Count (150-450) k/uL ABG pH 7.29 L (7.35-7.45) ABG pO2 28 L* (83-108) mmHg ABG HCO3 19 L (21-25) mmol/L ABG Total CO2 (19-24) mmol/L ABG O2 Saturation 45.0 L (94-97) % Sodium (137-145) mmol/L Chloride (98-107) mmol/L BUN (9-20) mg/dL Creatinine (0.66-1.25) mg/dL Glucose (74-99) mg/dL POC Glucose (mg/dL) 211 H 263 H (75-99) mg/dL Calcium (8.4-10.2) mg/dL Phosphorus (2.5-4.5) mg/dL 06/04/16 06/05/16 06/05/16 Range/Units 22:01 02:20 04:10 WBC 15.4 H (3.8-10.6) k/uL RBC 2.85 L (4.30-5.90) m/uL Hgb 8.6 L (13.0-17.5) gm/dL Hct 28.0 L (39.0-53.0) % MCHC 30.9 L (31.0-37.0) g/dL RDW 16.7 H (11.5-15.5) % Plt Count 101 L (150-450) k/uL ABG pH 7.29 L (7.35-7.45) ABG pO2 (83-108) mmHg ABG HCO3 18 L (21-25) mmol/L ABG Total CO2 (19-24) mmol/L ABG O2 Saturation (94-97) % Sodium (137-145) mmol/L Chloride (98-107) mmol/L BUN (9-20) mg/dL Creatinine (0.66-1.25) mg/dL Glucose (74-99) mg/dL POC Glucose (mg/dL) 253 H (75-99) mg/dL Calcium (8.4-10.2) mg/dL Phosphorus (2.5-4.5) mg/dL 06/05/16 06/05/16 06/05/16 Range/Units 04:10 05:21 05:51 WBC (3.8-10.6) k/uL RBC (4.30-5.90) m/uL Hgb (13.0-17.5) gm/dL Hct (39.0-53.0) % MCHC (31.0-37.0) g/dL RDW (11.5-15.5) % Plt Count (150-450) k/uL ABG pH (7.35-7.45) ABG pO2 (83-108) mmHg ABG HCO3 (21-25) mmol/L ABG Total CO2 26 H (19-24) mmol/L ABG O2 Saturation 98.0 H (94-97) % Sodium 134 L (137-145) mmol/L Chloride 97 L (98-107) mmol/L BUN 39 H (9-20) mg/dL Creatinine 1.30 H (0.66-1.25) mg/dL Glucose 214 H (74-99) mg/dL POC Glucose (mg/dL) 205 H (75-99) mg/dL Calcium 7.9 L (8.4-10.2) mg/dL Phosphorus 5.8 H (2.5-4.5) mg/dL 06/05/16 Range/Units 12:10 WBC (3.8-10.6) k/uL RBC (4.30-5.90) m/uL Hgb (13.0-17.5) gm/dL Hct (39.0-53.0) % MCHC (31.0-37.0) g/dL RDW (11.5-15.5) % Plt Count (150-450) k/uL ABG pH (7.35-7.45) ABG pO2 (83-108) mmHg ABG HCO3 (21-25) mmol/L ABG Total CO2 (19-24) mmol/L ABG O2 Saturation (94-97) % Sodium (137-145) mmol/L Chloride (98-107) mmol/L BUN (9-20) mg/dL Creatinine (0.66-1.25) mg/dL Glucose (74-99) mg/dL POC Glucose (mg/dL) 173 H (75-99) mg/dL Calcium (8.4-10.2) mg/dL Phosphorus (2.5-4.5) mg/dL Assessment and Plan Plan: Acute hypoxic respiratory failure requiring mechanical ventilation Diffuse bilateral pulmonary edema, question noncardiogenic pulmonary edema versus hypersensitivity pneumonitis versus other Hypotension, possibly cardiogenic vs hypovolemic shock Acute exacerbation of CHF, diastolic, ejection fraction 45-50% Acute kidney injury Atrial fibrillation with rapid ventricular rate, status post ablation Pulmonary edema on CXR Small to trace pericardial effusion Hypoglycemic reaction, Hx DM2 Coronary artery disease, status post CABG and aortic valve replacement Hx hypertension Dyslipidemia COPD Pulmonary fibrosis with prior exposure to asbestos Anemia, macrocytic Thrombocytopenia Continue full ventilator support, wean FiO2 for saturation greater than or equal to 92% Hold Lasix due to acute kidney injury Wean levophed as able ABX: Vanco and Zosyn Diprivan for sedation Schedule duo nebs Solu-Medrol I's and O's and daily weights GI and DVT prophylaxis: Eliquis (on hold due to bleeding), Protonix Cardiology recommendations Consult PT and OT Begin tube feeds Sputum, blood, urine cultures Nephrology consult Overall prognosis is poor
[2016-06-05] MEDS: VANCOMYCIN 1,250 MG in SODIUM CHLORIDE 0.9% 250 ML IVPB SCH (14:15)
--- NOTE | 2016-06-05 14:49 | P.PN ---
Subjective This is a 66-year-old gentleman who is followed by Dr. Chaitanya Parr on an outpatient basis. On 04/22/2016 the patient presented to the emergency department at [facility], with complaints of dyspnea. The patient denied complaints of any chest pain, and nausea. On presentation to the emergency department at [facility], a 12-lead EKG was completed which showed him to have some ST elevation in his inferior leads. Subsequently, this patient was seen and examined by Dr. Scherer from [facility] and the patient was transferred to [facility] for further evaluation and workup. The patient was admitted to the hospital and underwent an urgent cardiac catheterization by Dr. Scherer, which demonstrated the patient to have a totally occluded right coronary artery, 80% stenosis to a circumflex coronary artery, a 90% stenosis to his proximal left anterior descending coronary artery, and a 60 % stenosis to his mid left anterior descending coronary artery. The patient also underwent a 2-D echocardiogram, which demonstrated mild concentric left ventricular hypertrophy, mild mitral regurgitation, mild tricuspid regurgitation , an overall left ventricular systolic function severely impaired with an ejection fraction of 25-30%, [id number] aortic stenosis with mitral aortic regurgitation, and a peak/mean gradient across the aortic valve of 42.44 mmHg and 22.56 mmHg. The above-mentioned studies were reviewed with the patient by Dr. Scherer and by Dr. Hardy and an urgent coronary artery bypass grafting surgery with aortic valve replacement was done using QUEZADA to LAD saphenous venous graft to the diagonal branch, SVG to the obtuse marginal branch , and 7 as well as SVG to the RCA, along with aortic valve bioprosthesis, his hospital course was completed by acute bronchitis with Serratia marcescens as well as tachybradycardia syndrome and eventually he was transferred to [facility] for physical therapy rehabilitation. Patient was readmitted to [facility] on May 18 for atrial flutter with rapid ventricular response and underwent cardioversion on 2015. He was also treated for acute on chronic diastolic heart failure. He was discharged back to [facility] on May 24. Patient stated that he was in fine up until today when he started feeling short of breath and that he was feeling off. He was transferred to [facility] emergency center where he was found to have an elevated heart rate and again in atrial flutter. His blood pressure was low and he received fluid boluses of 1-1/2 L total. Troponins were 0.060, 0.074, 0.075. ProBNP was 5590. Urinalysis was negative. Patient was seen by cardiology with plan to have Dr. Peck evaluate for possible cardiac ablation. Patient is seen at this time in the emergency room as he is waiting for a selective care bed to be made 06/03: He is status post EP study and ablation done on May 31. He was hypotensive following the procedure and was placed on dopamine and transferred to the intensive care unit and consult requested with Dr. Marin. He has subsequently been weaned off dopamine. This morning he has again in atrial fibrillation with heart rate running 116-120. Patient is status post 1 unit packed RBCs given on June 01 for hemoglobin of 8.0. Patient is complaining of a sore throat and thrush noted and started on nystatin. Rivers catheter has remained in place. Urine output has been good. 06/04: He has been transferred to the [facility]. Dr. Scherer added digoxin and amiodaronedrip. Anticoagulation is on hold due to hemoglobin of 9. Repeat hemoglobin today is 9.6. Blood sugars are again elevated running between 171 and 241. No changes in insulin due to his previous hypoglycemic episodes. Patient was started on Solu-Medrol yesterday. This morning, patient has increasing shortness of breath and his pulse ox was down to 72. Patient is now on a nonrebreather. Patient has been removing his nasal cannula. 06/05: Patient's respiratory status worsened over the night. He was placed on BiPAP and then ended up being intubated and placed on mechanical ventilation with tidal volume 450, FiO2 60% and PEEP of 5. Patient feeling was also quite confused. He is now on norepinephrine and amiodarone drips. Family is requesting the patient be transferred to another facility. Case management has met with family. Await final decision. Objective - Vital Signs Vital signs: Vital Signs Temp 98.4 F 06/05/16 08:00 Pulse 60 06/05/16 13:17 Resp 22 06/05/16 13:00 BP 80/53 06/04/16 21:42 Pulse Ox 97 06/05/16 13:00 Intake & Output 06/04/16 06/05/16 06/05/16 18:59 06:59 18:59 Intake Total 500 1862.409 167.25 Output Total 915 325 Balance 500 947.409 -157.75 Weight 83.2 kg 83.2 kg Intake: IV 100 240 120 Sodium Chloride 0.9% 1, 100 240 120 000 ml @ 20 mls/hr IV . Q24H [facility] Rx#:[id number] Intake, IV Titration 1622.409 47.25 Amount Amiodarone 450 mg In 233.359 Dextrose 5% in Water 250 ml @ 1 MG/MIN 34.53 mls/ hr IV .Q7H31M [facility] Rx#: [id number] Dextrose 5% in Water 100 100 ml @ 618 mls/hr IV .Q10M ONE with Amiodarone 150 mg Rx#:[id number] Norepinephrine 4 mg In 239.050 Sodium Chloride 0.9% 250 ml @ Titrate IV .Q0M [facility] Rx#:[id number] Propofol 500 mg In Empty 50.00 47.25 Bag 1 bag @ Titrate IV . Q0M [facility] Rx#:[id number] Sodium Chloride 0.9% 250 250 ml @ 999 mls/hr IV .Q16M [facility] Rx#:[id number] Sodium Chloride 0.9% 500 500 ml @ 999 mls/hr IV .Q31M [facility] Rx#:[id number] Vancomycin 1,250 mg In 250 Sodium Chloride 0.9% 250 ml @ 125 mls/hr IVPB Q12H [facility] Rx#:[id number] Oral 400 Output: Urine 915 325 Other: Voiding Method Indwelling Catheter Indwelling Catheter Indwelling Catheter # Bowel Movements 1 ABP, PAP, CO, CI - Last Documented Arterial Blood Pressure 123/59 - Exam Gen: This is a 66-year-old male. He is in ICU bed intubated and on mechanical ventilation appears to be in no acute distress. HEENT: Head is atraumatic, normocephalic. Pupils equal, round. Sclerae is anicteric. Oral ET and gastric tube. NECK: Supple. No JVD. No lymphadenopathy. No thyromegaly. LUNGS: Diminished bilateral bases with coarse breath sounds. No intercostal retractions. HEART: Irregular rate and rhythm. Systolic murmur. ABDOMEN: Soft. Bowel sounds are present. No masses. No tenderness. EXTREMITIES: 1+ pedal edema bilaterally slightly worse on the right. Significant ecchymosis to the right leg. No calf tenderness. NEUROLOGICAL: Patient is sedated - Labs CBC & Chem 7: 06/05/16 04:10 06/05/16 04:10 Labs: Abnormal Lab Results - Last 24 Hours (Table) 06/04/16 06/04/16 06/04/16 Range/Units 17:02 18:37 20:40 WBC (3.8-10.6) k/uL RBC (4.30-5.90) m/uL Hgb (13.0-17.5) gm/dL Hct (39.0-53.0) % MCHC (31.0-37.0) g/dL RDW (11.5-15.5) % Plt Count (150-450) k/uL ABG pH 7.29 L (7.35-7.45) ABG pO2 28 L* (83-108) mmHg ABG HCO3 19 L (21-25) mmol/L ABG Total CO2 (19-24) mmol/L ABG O2 Saturation 45.0 L (94-97) % Sodium (137-145) mmol/L Chloride (98-107) mmol/L BUN (9-20) mg/dL Creatinine (0.66-1.25) mg/dL Glucose (74-99) mg/dL POC Glucose (mg/dL) 211 H 263 H (75-99) mg/dL Calcium (8.4-10.2) mg/dL Phosphorus (2.5-4.5) mg/dL 06/04/16 06/05/16 06/05/16 Range/Units 22:01 02:20 04:10 WBC 15.4 H (3.8-10.6) k/uL RBC 2.85 L (4.30-5.90) m/uL Hgb 8.6 L (13.0-17.5) gm/dL Hct 28.0 L (39.0-53.0) % MCHC 30.9 L (31.0-37.0) g/dL RDW 16.7 H (11.5-15.5) % Plt Count 101 L (150-450) k/uL ABG pH 7.29 L (7.35-7.45) ABG pO2 (83-108) mmHg ABG HCO3 18 L (21-25) mmol/L ABG Total CO2 (19-24) mmol/L ABG O2 Saturation (94-97) % Sodium (137-145) mmol/L Chloride (98-107) mmol/L BUN (9-20) mg/dL Creatinine (0.66-1.25) mg/dL Glucose (74-99) mg/dL POC Glucose (mg/dL) 253 H (75-99) mg/dL Calcium (8.4-10.2) mg/dL Phosphorus (2.5-4.5) mg/dL 06/05/16 06/05/16 06/05/16 Range/Units 04:10 05:21 05:51 WBC (3.8-10.6) k/uL RBC (4.30-5.90) m/uL Hgb (13.0-17.5) gm/dL Hct (39.0-53.0) % MCHC (31.0-37.0) g/dL RDW (11.5-15.5) % Plt Count (150-450) k/uL ABG pH (7.35-7.45) ABG pO2 (83-108) mmHg ABG HCO3 (21-25) mmol/L ABG Total CO2 26 H (19-24) mmol/L ABG O2 Saturation 98.0 H (94-97) % Sodium 134 L (137-145) mmol/L Chloride 97 L (98-107) mmol/L BUN 39 H (9-20) mg/dL Creatinine 1.30 H (0.66-1.25) mg/dL Glucose 214 H (74-99) mg/dL POC Glucose (mg/dL) 205 H (75-99) mg/dL Calcium 7.9 L (8.4-10.2) mg/dL Phosphorus 5.8 H (2.5-4.5) mg/dL 06/05/16 Range/Units 12:10 WBC (3.8-10.6) k/uL RBC (4.30-5.90) m/uL Hgb (13.0-17.5) gm/dL Hct (39.0-53.0) % MCHC (31.0-37.0) g/dL RDW (11.5-15.5) % Plt Count (150-450) k/uL ABG pH (7.35-7.45) ABG pO2 (83-108) mmHg ABG HCO3 (21-25) mmol/L ABG Total CO2 (19-24) mmol/L ABG O2 Saturation (94-97) % Sodium (137-145) mmol/L Chloride (98-107) mmol/L BUN (9-20) mg/dL Creatinine (0.66-1.25) mg/dL Glucose (74-99) mg/dL POC Glucose (mg/dL) 173 H (75-99) mg/dL Calcium (8.4-10.2) mg/dL Phosphorus (2.5-4.5) mg/dL Assessment and Plan Plan: 1. Atrial flutter with rapid ventricular response with previous history of electrical cardioversions status post ablation on May 31. Patient has been seen by cardiology. Continue amiodarone and eliquis. He did receive bolus dose of Cardizem but due to hypotension, Cardizem drip was not started. 2. Coronary artery disease status post coronary artery bypass graft with QUEZADA to LAD, SVG to the diagonal branch, SVG to obtuse marginal branch, SVG to RCA with severe LV dysfunction. 3. Moderate to severe aortic valve stenosis status post bioprosthetic aortic valve replacement. Stable at this point in time. 4. Hypertension. Currently hypotensive. Patient is normally on Coreg 3.125 mg every 12 hours, Lasix 20 mg daily, lisinopril 2.5 mg daily. Patient has been hypotensive and parameters in place for his antihypertensive medications. 5. Hyperlipidemia. Continue Lipitor. 6. Medical debility. Return to [facility] with the patient is more stable. 7. COPD currently stable. Continue albuterol as needed. 8. 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 9. Chronic diastolic heart failure, last ELIZABETH performed 05/09/2016 ejection fraction 45-50%. Continue Lasix 20 mg daily with potassium supplement. 7. Acute exacerbation of diastolic heart failure. Patient was started on Lasix 40 mg IV every 12 hours. 8. Diabetes mellitus type 2, uncontrolled with hypoglycemia. Patient is on D5W. Hypoglycemic medications are on hold. 9. Postprocedural hypotension, unexpected. Patient is currently on dopamine drip. Patient was transferred to the intensive care unit and consult with Dr. Marin. 10. DVT prophylaxis. Eliquis. 11. GI prophylaxis. Continue patient on Protonix 40 mg orally once every day. 12. Thrush. Nystatin started. 13. Acute on chronic hypoxic respiratory failure requiring intubation and mechanical ventilation. Patient is followed by Dr. Marin. CODE STATUS is full code. Discharge plan: Family is contemplating transfer to another facility. Impression and plan of care have been directed as dictated by the signing physician. Diane Young nurse practitioner acting as scribe for signing physician. Time with Patient: Greater than 30
--- NOTE | 2016-06-05 15:14 | P.NPCON ---
History of Present Illness - Reason for Consult acute renal failure - Chief Complaint EMILIO - History of Present Illness This is a 66-year-old male seen in consultation because of acute kidney injury with creatinine going up from 0.8-1.3. He had emergency cardiac surgery on 04/26/2016 with quadruple bypass as well as aortic valve replacement with a bioprosthetic valve. At the time he had presented with an acute NC. He was discharged and readmitted on 05/18/2016 with atrial flutter flutter and underwent cardioversion on 05/21/2016. Started back to many large. He came in because of shortness of breath on 05/30/2016. And was readmitted. He was diuresed , Yesterday became short of breath and hypotensive and was resuscitated with intubation and was started on levo fed. His Lasix was on hold because of the low blood pressure. Currently he is on 50% FiO2, sedated obtunded. He is known with COPD diabetes hypertension hyperlipidemia prostatism and peripheral vascular disease supposedly. Is also known with pulmonary fibrosis. An echocardiogram done on this admission showed slightly low ejection fraction of about 40%. The valve is unremarkable except it is commented that he has moderate aortic stenosis although he had a pericardial valve replacement recently on 04/26/2016. There is small pericardial effusion. Past Medical History Past Medical History: Atrial Fibrillation, Coronary Artery Disease (CAD), Chest Pain / Angina, COPD, Diabetes Mellitus, GERD/Reflux, Hyperlipidemia, Hypertension, Myocardial Infarction (NC), Osteoarthritis (OA), Pneumonia, Prostate Disorder, Respiratory Disorder, Vascular Disorder Additional Past Medical History / Comment(s): Severe left ventricular dysfunction, pulmonary fibrosis, gout, BPH Last Myocardial Infarction Date:: 03/2016 History of Any Multi-Drug Resistant Organisms: MRSA Date of last positivie culture/infection: 04/12/16 MDRO Source:: NASAL Past Surgical History: Coronary Bypass/CABG, Heart Catheterization Additional Past Surgical History / Comment(s): Nasal polyps, left heart catheterization, quadruple bypass 04/2016, cardioversions x 2. Past Anesthesia/Blood Transfusion Reactions: No Reported Reaction Past Psychological History: No Psychological Hx Reported Additional Psychological History / Comment(s): Pt currently is staying at [facility] for rehab. He states he was up walking short distances with a walker. He used to do metallurgy work. Smoking Status: Former smoker Past Alcohol Use History: Daily Additional Past Alcohol Use History / Comment(s): pt used to drink 2 beers daily but. pt has been at [facility] for rehab so no alochol use there. Pt started smoking in 1972 and quit in March 2016. Past Drug Use History: None Reported - Past Family History Mother Family Medical History: Diabetes Mellitus, Myocardial Infarction (NC) Additional Family Medical History / Comment(s): Mother had her first NC at the age of 35ys. She of a NC at the age of 62yrs. Father Family Medical History: Cancer Additional Family Medical History / Comment(s): Father had colon and prostate cancer. He at the age of 89yrs. Brother(s) Family Medical History: Hypertension Sister(s) Family Medical History: No Reported History Son(s) Family Medical History: No Reported History Medications and Allergies Home Medications Medication Instructions Recorded Confirmed Type Allopurinol [Zyloprim] 100 mg PO DAILY PRN 04/22/16 05/30/16 History Atorvastatin [Lipitor] 40 mg PO HS 05/18/16 05/30/16 History Multivitamins, Thera [Multivitamin] 1 tab PO QAM 05/18/16 05/30/16 History Sennosides [Senna] 17.2 mg PO HS 05/18/16 05/30/16 History Amino Acids/Protein Hydrolys 30 ml PO BID 05/30/16 05/30/16 History [Pro-Stat Supplement] Carvedilol [Coreg] 3.125 mg PO Q12H 05/30/16 05/30/16 History Ferrous Sulfate [Iron (65 MG 325 mg PO QAM 05/30/16 05/30/16 History Elemental)] INSULIN LISPRO (humaLOG) [HumaLOG] 2 units SQ BID@1130,1630 05/30/16 05/30/16 History INSULIN LISPRO (humaLOG) [humaLOG 3 unit SQ AC-BRKFST 05/30/16 05/30/16 History (formulary)] Melatonin 3 mg PO HS 05/30/16 05/30/16 History Nystatin 100,000 Unit/ml Susp 5 ml PO Q6H PRN 05/30/16 05/30/16 History [Mycostatin Oral Susp] Potassium Chloride [K-Tab ER] 20 meq PO DAILY 05/30/16 05/30/16 History QUEtiapine [SEROquel] 12.5 mg PO HS 05/30/16 05/30/16 History predniSONE See Taper PO DAILY 05/30/16 05/30/16 History Allergies Allergy/AdvReac Type Severity Reaction Status Date / Time No Known Allergies Allergy Verified 05/30/16 07:09 Physical Exam Vitals: Vital Signs Temp Pulse Pulse Pulse Pulse Resp BP 06/05/16 13:17 60 06/05/16 13:00 59 L 22 06/05/16 12:03 57 L 06/05/16 12:00 56 L 16 06/05/16 11:50 56 L 15 06/05/16 11:00 59 L 30 H 06/05/16 10:00 56 L 15 06/05/16 09:00 58 L 18 06/05/16 08:05 55 L 06/05/16 08:00 98.4 F 61 25 H 06/05/16 07:44 57 L 06/05/16 07:00 58 L 26 H 06/05/16 05:00 62 27 H 06/05/16 04:00 98.4 F 62 26 H 06/05/16 03:00 61 15 06/05/16 02:00 97.6 F 61 17 06/05/16 01:00 91.5 F L 56 L 25 H 06/05/16 00:00 55 L 61 13 06/04/16 23:00 54 L 19 06/04/16 22:00 55 L 21 06/04/16 21:46 56 L 06/04/16 21:42 58 L 24 80/53 06/04/16 21:34 67 06/04/16 21:19 96.5 F L 61 18 06/04/16 20:00 109 H 13 06/04/16 17:00 96.6 F L 06/04/16 16:31 88 06/04/16 16:19 80 06/04/16 16:00 96.6 F L 89 89 20 BP Pulse Ox 06/05/16 13:17 06/05/16 13:00 97 06/05/16 12:03 06/05/16 12:00 99 06/05/16 11:50 06/05/16 11:00 97 06/05/16 10:00 98 01/09/17 09:00 98 06/05/16 08:05 06/05/16 08:00 97 06/05/16 07:44 06/05/16 07:00 96 06/05/16 05:00 95 06/05/16 04:00 95 06/05/16 03:00 94 L 06/05/16 02:00 92 L 06/05/16 01:00 97 06/05/16 00:00 98 06/04/16 23:00 97 06/04/16 22:00 95 06/04/16 21:46 06/04/16 21:42 95 06/04/16 21:34 06/04/16 21:19 89/55 95 06/04/16 20:00 131/89 90 L 06/04/16 17:00 06/04/16 16:31 06/04/16 16:19 06/04/16 16:00 154/75 98 Intake and Output 06/05/16 06/05/16 06/05/16 06:59 14:59 22:59 Intake Total 1195.059 167.25 Output Total 340 325 Balance 855.059 -157.75 Intake: IV 180 120 Sodium Chloride 0.9% 1, 180 120 000 ml @ 20 mls/hr IV . Q24H [facility] Rx#:[id number] Intake, IV Titration 1015.059 47.25 Amount Amiodarone 450 mg In 233.359 Dextrose 5% in Water 250 ml @ 1 MG/MIN 34.53 mls/ hr IV .Q7H31M [facility] Rx#: [id number] Norepinephrine 4 mg In 239.050 Sodium Chloride 0.9% 250 ml @ Titrate IV .Q0M [facility] Rx#:[id number] Propofol 500 mg In Empty 42.65 47.25 Bag 1 bag @ Titrate IV . Q0M [facility] Rx#:[id number] Sodium Chloride 0.9% 500 500 ml @ 999 mls/hr IV .Q31M ONE Rx#:[id number] Output: Urine 340 325 Other: Voiding Method Indwelling Catheter Indwelling Catheter Weight 83.2 kg 83.2 kg Patient Weight 06/06/16 06:59 Weight 83.2 kg ABP, PAP, CO, CI - Last 8 Hours Arterial Blood Pressure 123/59 Arterial Blood Pressure 109/58 Arterial Blood Pressure 118/60 Arterial Blood Pressure 107/55 Arterial Blood Pressure 110/53 Arterial Blood Pressure 119/57 On examination is obtunded, on small dose of levo fed at 2.5 mics. Off of any IV fluids or Lasix currently. A chin exam no JVP neck is supple no facial asymmetry. Alert equal and reactive bilaterally. Lungs are clear to auscultation good air entry bilaterally on the vent 50% FiO2 Heart sounds are unremarkable normal S1 and S2 no prosthetic valve click heard because of this a pop bioprosthetic valve. He is presently normal currently. Abdomen soft nontender distended bowel sounds are present no organomegaly ascites masses felt Extremity exam was trace edema. There is evidence of subcutaneous hematoma from surgery on his left leg for vein harvesting Neurologically as mentioned above obtunded because of sedation Results - Lab Results Most recent lab results ABG pH 7.37 (7.35-7.45) 06/05/16 05:21 ABG pCO2 44 mmHg (35-45) 06/05/16 05:21 ABG pO2 99 mmHg (83-108) 06/05/16 05:21 ABG HCO3 25 mmol/L (21-25) 06/05/16 05:21 ABG O2 Saturation 98.0 % (94-97) H 06/05/16 05:21 Calcium 7.9 mg/dL (8.4-10.2) L 06/05/16 04:10 Phosphorus 5.8 mg/dL (2.5-4.5) H 06/05/16 04:10 Magnesium 2.1 mg/dL (1.6-2.3) 06/05/16 04:10 06/05/16 04:10 06/05/16 04:10 Assessment and Plan Plan: Impression. 1. Acute kidney injury secondary to prerenal from low blood pressure. Currently improving with urine output being 340) 25 mL for the last 280 chest. Creatinine went up from 0.8-1.3 this morning 2. Pulmonary edema possible noncardiogenic. Etiology not clear . echocardiogram is not suggestive of any pericardial tamponade not, significant valve dysfunction. 3. Vent dependent respiratory failure intubated 06/04/2016, on 50% FiO2 4. History of pulmonary fibrosis but the x-rays significantly worsened since his admission 5. Cause of hypotension, rule out sepsis. Recommendation. 1. Agree with treatment with antibiotics for sepsis but would avoid vancomycin and other nephrotoxic medication. 2. Agree with holding any further Lasix for now and if he has hypertension to use when necessary small doses of bolus like 250 mL of saline to keep mean arterial pressure around 65-70. 3. Agree with levo fed. 4. Watch BUN/creatinine electrolytes calcium phosphorus magnesium as needed. 5. If possible discontinue vancomycin. 6. Consider putting a CVP line for a central venous pressure 7. Check troponin .
[2016-06-05] MEDS ORDERED: VANCOMYCIN 1,250 MG in SODIUM CHLORIDE 0.9% 250 ML IVPB SCH (16:00)
--- NOTE | 2016-06-05 16:49 | P.PN ---
Subjective Principal diagnosis: A. fib/a flutter This is a pleasant 66-year-old gentleman with a known CAD and status post CABG along with aortic valve replacement who was admitted to the hospital this time with atrial flutter and rapid ventricular response. He underwent an atrial flutter ablation few days ago. He was doing good until this yesterday when he went back into an A. fib with RVR and converted back into normal sinus mechanism. The patient was transferred to the selective unit yesterday but after he was transferred he developed an acute respiratory distress and he was transferred back to the intensive care unit where he was intubated and currently he is on ventilator. The blood pressure has been marginal. I decreased the dose of Lasix to 40 mg IV daily. He continues to be in a sinus rhythm. He continues to require a small dose of Levophed which we are trying to wean. I had a long discussion with the patient's family who would like to transfer the patient to another facility. I also had a discussion with the bus company manager on service. Objective - Vital Signs Vital signs: Vital Signs Temp 98.4 F 06/05/16 08:00 Pulse 58 L 06/05/16 15:52 Resp 22 06/05/16 13:00 BP 80/53 06/04/16 21:42 Pulse Ox 97 06/05/16 13:00 Intake & Output 06/04/16 06/05/16 06/05/16 18:59 06:59 18:59 Intake Total 500 1862.409 167.25 Output Total 915 325 Balance 500 947.409 -157.75 Weight 83.2 kg 83.2 kg Intake: IV 100 240 120 Sodium Chloride 0.9% 1, 100 240 120 000 ml @ 20 mls/hr IV . Q24H [facility] Rx#:[id number] Intake, IV Titration 1622.409 47.25 Amount Amiodarone 450 mg In 233.359 Dextrose 5% in Water 250 ml @ 1 MG/MIN 34.53 mls/ hr IV .Q7H31M [facility] Rx#: [id number] Dextrose 5% in Water 100 100 ml @ 618 mls/hr IV .Q10M ONE with Amiodarone 150 mg Rx#:[id number] Norepinephrine 4 mg In 239.050 Sodium Chloride 0.9% 250 ml @ Titrate IV .Q0M [facility] Rx#:[id number] Propofol 500 mg In Empty 50.00 47.25 Bag 1 bag @ Titrate IV . Q0M [facility] Rx#:[id number] Sodium Chloride 0.9% 250 250 ml @ 999 mls/hr IV .Q16M ONE Rx#:[id number] Sodium Chloride 0.9% 500 500 ml @ 999 mls/hr IV .Q31M ONE Rx#:[id number] Vancomycin 1,250 mg In 250 Sodium Chloride 0.9% 250 ml @ 125 mls/hr IVPB Q12H [facility] Rx#:[id number] Oral 400 Output: Urine 915 325 Other: Voiding Method Indwelling Catheter Indwelling Catheter Indwelling Catheter # Bowel Movements 1 ABP, PAP, CO, CI - Last Documented Arterial Blood Pressure 123/59 - Constitutional General appearance: Present: mild distress - Respiratory Respiratory: bilateral: diminished - Cardiovascular Rhythm: regular Heart sounds: normal: S1, S2 - Labs CBC & Chem 7: 06/05/16 04:10 06/05/16 04:10 Labs: Abnormal Lab Results - Last 24 Hours (Table) 06/04/16 06/04/16 06/04/16 Range/Units 17:02 18:37 20:40 WBC (3.8-10.6) k/uL RBC (4.30-5.90) m/uL Hgb (13.0-17.5) gm/dL Hct (39.0-53.0) % MCHC (31.0-37.0) g/dL RDW (11.5-15.5) % Plt Count (150-450) k/uL ABG pH 7.29 L (7.35-7.45) ABG pO2 28 L* (83-108) mmHg ABG HCO3 19 L (21-25) mmol/L ABG Total CO2 (19-24) mmol/L ABG O2 Saturation 45.0 L (94-97) % Sodium (137-145) mmol/L Chloride (98-107) mmol/L BUN (9-20) mg/dL Creatinine (0.66-1.25) mg/dL Glucose (74-99) mg/dL POC Glucose (mg/dL) 211 H 263 H (75-99) mg/dL Calcium (8.4-10.2) mg/dL Phosphorus (2.5-4.5) mg/dL Creatine Kinase (55-170) U/L 06/04/16 06/05/16 06/05/16 Range/Units 22:01 02:20 04:10 WBC 15.4 H (3.8-10.6) k/uL RBC 2.85 L (4.30-5.90) m/uL Hgb 8.6 L (13.0-17.5) gm/dL Hct 28.0 L (39.0-53.0) % MCHC 30.9 L (31.0-37.0) g/dL RDW 16.7 H (11.5-15.5) % Plt Count 101 L (150-450) k/uL ABG pH 7.29 L (7.35-7.45) ABG pO2 (83-108) mmHg ABG HCO3 18 L (21-25) mmol/L ABG Total CO2 (19-24) mmol/L ABG O2 Saturation (94-97) % Sodium (137-145) mmol/L Chloride (98-107) mmol/L BUN (9-20) mg/dL Creatinine (0.66-1.25) mg/dL Glucose (74-99) mg/dL POC Glucose (mg/dL) 253 H (75-99) mg/dL Calcium (8.4-10.2) mg/dL Phosphorus (2.5-4.5) mg/dL Creatine Kinase (55-170) U/L 06/05/16 06/05/16 06/05/16 Range/Units 04:10 04:10 05:21 WBC (3.8-10.6) k/uL RBC (4.30-5.90) m/uL Hgb (13.0-17.5) gm/dL Hct (39.0-53.0) % MCHC (31.0-37.0) g/dL RDW (11.5-15.5) % Plt Count (150-450) k/uL ABG pH (7.35-7.45) ABG pO2 (83-108) mmHg ABG HCO3 (21-25) mmol/L ABG Total CO2 26 H (19-24) mmol/L ABG O2 Saturation 98.0 H (94-97) % Sodium 134 L (137-145) mmol/L Chloride 97 L (98-107) mmol/L BUN 39 H (9-20) mg/dL Creatinine 1.30 H (0.66-1.25) mg/dL Glucose 214 H (74-99) mg/dL POC Glucose (mg/dL) (75-99) mg/dL Calcium 7.9 L (8.4-10.2) mg/dL Phosphorus 5.8 H (2.5-4.5) mg/dL Creatine Kinase 32 L (55-170) U/L 06/05/16 06/05/16 Range/Units 05:51 12:10 WBC (3.8-10.6) k/uL RBC (4.30-5.90) m/uL Hgb (13.0-17.5) gm/dL Hct (39.0-53.0) % MCHC (31.0-37.0) g/dL RDW (11.5-15.5) % Plt Count (150-450) k/uL ABG pH (7.35-7.45) ABG pO2 (83-108) mmHg ABG HCO3 (21-25) mmol/L ABG Total CO2 (19-24) mmol/L ABG O2 Saturation (94-97) % Sodium (137-145) mmol/L Chloride (98-107) mmol/L BUN (9-20) mg/dL Creatinine (0.66-1.25) mg/dL Glucose (74-99) mg/dL POC Glucose (mg/dL) 205 H 173 H (75-99) mg/dL Calcium (8.4-10.2) mg/dL Phosphorus (2.5-4.5) mg/dL Creatine Kinase (55-170) U/L Assessment and Plan Plan: Assessment #1 acute respiratory failure #2 paroxysmal atrial fibrillation #3 status post CABG and AVR #4 anemia seems to be stable #5 multiple comorbid conditions Plan #1 try to wean the patient from the Levophed #2 decrease the dose of Lasix #3 continue following up with him
[2016-06-05] MEDS: TAMSULOSIN 0.4 MG CAP.ER.24H PO SCH (17:18)
[2016-06-05 17:50] LABS: Glucose,Whole Blood 159 mg/dL (75-99)
[2016-06-05] MEDS: AMIODARONE 200 MG TAB PO SCH (21:47)
[2016-06-05] MEDS: SENNOSIDES 8.6 MG TAB PO SCH (21:48)
[2016-06-05] MEDS: NOREPINEPHRINE 4 MG in SODIUM CHLORIDE 0.9% 250 ML IV SCH ×3 (22:49)
[2016-06-06] MEDS: INSULIN LISPRO (humaLOG) 300 UNIT/3 ML VIAL SQ SCH ×5 (00:13→21:18)
[2016-06-06] MEDS: methylPREDNISolone SOD SUCCI 125 MG/2 ML VIAL IV SCH ×4 (00:13→17:39)
[2016-06-06 00:15] LABS: Glucose,Whole Blood 187 mg/dL (75-99)
[2016-06-06] MEDS: PIPERACILLIN-TAZOBACTAM 3.375 GM in DEXTROSE/WATER 1 50ML.BAG IVPB SCH ×3 (00:16→16:37)
[2016-06-06 04:56] LABS: Anisocytosis Slight; CH 30.5; CHCM 31.4; HCT 26.6 % (39.0-53.0); HDW 3.54; HGB 8.4 gm/dL (13.0-17.5); Hypochromasia Moderate; MCH 31.1 pg (25.0-35.0); MCHC 31.7 g/dL (31.0-37.0); MCV 97.9 fL (80.0-100.0); Macrocytosis Slight; Mean Platelet Volume 7.7; Poikilocytosis Slight; RBC 2.72 m/uL (4.30-5.90); RDW 16.5 % (11.5-15.5); WBC 9.5 k/uL (3.8-10.6)
[2016-06-06 05:10] LABS: Calcium 7.9 mg/dL (8.4-10.2); Magnesium 2.1 mg/dL (1.6-2.3); Phosphorous 5.7 mg/dL (2.5-4.5); Potassium 4.3 mmol/L (3.5-5.1)
[2016-06-06] MEDS: PROPOFOL 500 MG in EMPTY BAG 1 BAG IV SCH ×2 (05:13→07:09)
[2016-06-06 05:20] LABS: ABG Base Excess 0.4 mmol/L; ABG HCO3 25 mmol/L (21-25); ABG PCO2 40 mmHg (35-45); ABG PH 7.41 (7.35-7.45); ABG PO2 81 mmHg (83-108); ABG TCO2 26 mmol/L (19-24)
[2016-06-06] MEDS: VANCOMYCIN 1,250 MG in SODIUM CHLORIDE 0.9% 250 ML IVPB SCH (06:45)
[2016-06-06] MEDS: NOREPINEPHRINE 4 MG in SODIUM CHLORIDE 0.9% 250 ML IV SCH (07:09)
--- NOTE | 2016-06-06 07:10 | XR ---
EXAMINATION TYPE: XR chest 1V portable DATE OF EXAM: 06/06/2016 7:02 AM COMPARISON: 06/05/2016 HISTORY: Shortness of breath FINDINGS: There are bilateral pleural effusions with cardiomegaly and bibasilar infiltrate. There is a diffuse interstitial pattern. Postsurgical change, ET and NG tube stable. IMPRESSION: 1. Diffuse airspace disease. Represents CHF or diffuse pneumonia. Underlying COPD or chronic intersti tial lung disease in the differential.
[2016-06-06 07:15] LABS: Glucose,Whole Blood 205 mg/dL (75-99)
[2016-06-06] MEDS: CHLORHEXIDINE GLUCONATE 15 ML CUP MUCOUS MEM SCH ×2 (07:46→21:16)
[2016-06-06] MEDS: FERROUS SULFATE 325 MG TAB PO SCH (07:46)
[2016-06-06] MEDS: PANTOPRAZOLE 40 MG/10 ML VIAL IVP SCH (07:46)
[2016-06-06] MEDS: MULTIVITAMINS, THERA 1 EACH TAB PO SCH (07:46)
[2016-06-06] MEDS: DIGOXIN 125 MCG TAB PO SCH (07:46)
[2016-06-06] MEDS: guaiFENesin 600 MG TABLET.ER PO SCH ×2 (07:47→21:16)
[2016-06-06] MEDS: THIAMINE 100 MG TAB PO SCH ×2 (07:47→16:38)
[2016-06-06] MEDS: ASPIRIN 81 MG CHEW PO SCH (07:47)
[2016-06-06] MEDS: POTASSIUM CHLORIDE ER 20 MEQ TAB.ER PO SCH (07:47)
[2016-06-06] MEDS: AMIODARONE 200 MG TAB PO SCH ×2 (07:47→21:15)
[2016-06-06] MEDS: METOPROLOL TARTRATE 25 MG TAB PO SCH ×5 (07:48→23:50)
[2016-06-06] MEDS: IPRATROPIUM-ALBUTEROL 3 ML NEB INHALATION SCH ×4 (08:05→20:34)
[2016-06-06] MEDS: BUDESONIDE 0.5 MG/2 ML NEBU INHALATION SCH ×2 (08:05→20:35)
--- NOTE | 2016-06-06 10:03 | P.PN ---
Subjective Principal diagnosis: This is a 66-year-old male who is seen because of acute kidney injury after he became hypotensive and his lungs showed possible non-cardiogenic pulmonary edema with extensive chest x-ray infiltrate. He was intubated. Yesterday his creatinine went up to 1.3 from 0.8. This morning is up to 1.5. He has made more urine though. He has been stable on 50% FiO2 on the vent. Sedated. He is on small amount of levo fed that is being tapered off. Workup has shown no explanation for his hypotension and worsening of chest x- ray. Blood cultures have been drawn pending results white count is normal there is no evidence of any temperature. Blood pressure is improved in the 120 range but A-line. A repeat troponin yesterday was 0.197. His chest x-ray shows minimal improvement but still has extensive I lateral infiltrates. His BNP is high at 24,500 as of yesterday He had emergency cardiac surgery on 04/26/2016 with quadruple bypass as well as aortic valve replacement with a bioprosthetic valve. At the time he had presented with an acute IA. He was discharged and readmitted on 05/18/2016 with atrial flutter flutter and underwent cardioversion on 05/21/2016. He was discharged and readmitted when he came in with shortness of breath 05/30/2016. And was readmitted. He is known with COPD diabetes hypertension hyperlipidemia prostatism and peripheral vascular disease supposedly. Is also known with pulmonary fibrosis. An echocardiogram done on this admission showed slightly low ejection fraction of about 40%. The valve is unremarkable except it is commented that he has moderate aortic stenosis although he had a pericardial valve replacement recently on 04/26/2016. There is small pericardial effusion. Objective - Vital Signs Vital signs: Vital Signs Temp 98.5 F 06/06/16 04:00 Pulse 53 L 06/06/16 08:45 Resp 24 06/06/16 07:00 BP 80/53 06/04/16 21:42 Pulse Ox 96 06/06/16 07:00 Intake & Output 06/05/16 06/06/16 06/06/16 18:59 06:59 18:59 Intake Total 379.70 540 469.155 Output Total 535 1255 50 Balance -155.30 -715 419.155 Weight 83.2 kg Intake: IV 220 220 20 Sodium Chloride 0.9% 1, 220 220 20 000 ml @ 20 mls/hr IV . Q24H [facility] Rx#:[id number] Intake, IV Titration 149.70 50 429.155 Amount Norepinephrine 4 mg In 52.45 158.75 Sodium Chloride 0.9% 250 ml @ Titrate IV .Q0M [facility] Rx#:[id number] Propofol 500 mg In Empty 97.25 50 20.405 Bag 1 bag @ Titrate IV . Q0M [facility] Rx#:[id number] Vancomycin 1,250 mg In 250 Sodium Chloride 0.9% 250 ml @ 125 mls/hr IVPB Q16H [facility] Rx#:[id number] Oral 200 Tube Feeding 10 70 20 Output: Urine 535 1255 50 Other: Voiding Method Indwelling Catheter Indwelling Catheter ABP, PAP, CO, CI - Last Documented Arterial Blood Pressure 125/51 On examination he is on suction was FiO2 normal sinus rhythm. A chin exam no JVP neck is supple no facial asymmetry Lungs are significant for occasional bilateral crackles. Good air entry bilaterally Heart sounds are unremarkable for any murmur rub gallop though he had aortic valve replacement is a bioprosthetic valve and therefore no click. Abdomen is nondistended benign looking. No masses felt no ascites. Extremity exam was trace edema Neurologic obtunded Extremities are warm to touch. - Labs CBC & Chem 7: 06/06/16 04:40 06/06/16 04:40 Labs: Abnormal Lab Results - Last 24 Hours (Table) 06/05/16 06/05/16 06/05/16 Range/Units 04:10 04:10 12:10 RBC (4.30-5.90) m/uL Hgb (13.0-17.5) gm/dL Hct (39.0-53.0) % RDW (11.5-15.5) % Plt Count (150-450) k/uL ABG pO2 (83-108) mmHg ABG Total CO2 (19-24) mmol/L BUN (9-20) mg/dL Creatinine (0.66-1.25) mg/dL Glucose (74-99) mg/dL POC Glucose (mg/dL) 173 H (75-99) mg/dL Calcium (8.4-10.2) mg/dL Phosphorus (2.5-4.5) mg/dL Creatine Kinase 32 L (55-170) U/L Troponin I 0.197 H* (0.000-0.034) ng/mL 06/05/16 06/06/16 06/06/16 Range/Units 17:48 00:11 04:40 RBC 2.72 L (4.30-5.90) m/uL Hgb 8.4 L (13.0-17.5) gm/dL Hct 26.6 L (39.0-53.0) % RDW 16.5 H (11.5-15.5) % Plt Count 94 L (150-450) k/uL ABG pO2 (83-108) mmHg ABG Total CO2 (19-24) mmol/L BUN (9-20) mg/dL Creatinine (0.66-1.25) mg/dL Glucose (74-99) mg/dL POC Glucose (mg/dL) 159 H 187 H (75-99) mg/dL Calcium (8.4-10.2) mg/dL Phosphorus (2.5-4.5) mg/dL Creatine Kinase (55-170) U/L Troponin I (0.000-0.034) ng/mL 06/06/16 06/06/16 06/06/16 Range/Units 04:40 05:10 07:13 RBC (4.30-5.90) m/uL Hgb (13.0-17.5) gm/dL Hct (39.0-53.0) % RDW (11.5-15.5) % Plt Count (150-450) k/uL ABG pO2 81 L (83-108) mmHg ABG Total CO2 26 H (19-24) mmol/L BUN 51 H (9-20) mg/dL Creatinine 1.56 H (0.66-1.25) mg/dL Glucose 200 H (74-99) mg/dL POC Glucose (mg/dL) 205 H (75-99) mg/dL Calcium 7.9 L (8.4-10.2) mg/dL Phosphorus 5.7 H (2.5-4.5) mg/dL Creatine Kinase (55-170) U/L Troponin I (0.000-0.034) ng/mL Microbiology - Last 24 Hours (Table) 06/05/16 18:00 Urine Culture - Preliminary Urine,Catheterized Assessment and Plan Plan: Impression. 1. Acute kidney injury secondary to prerenal from low blood pressure. Currently improving with urine output being 1790 mL of the last any 4 hours. He is on Lasix 40 mg a day. Creatinine went up from 0.8-1.3 yesterday and 1.5 this morning. There may be an amount of ATN therefore it might take a few days for his renal recovery. 2. Pulmonary edema possible noncardiogenic. Etiology not clear . echocardiogram is not suggestive of any pericardial tamponade not, significant valve dysfunction. Slight improvement by chest x-ray. Stable on 50% FiO2 3. Vent dependent respiratory failure intubated 06/04/2016, on 50% FiO2 4. History of pulmonary fibrosis but the x-rays significantly worsened since his admission 5. Cause of hypotension, rule out sepsis. Blood cultures are so far negative Recommendation. 1. Agree with treatment with antibiotics for sepsis but would avoid vancomycin and other nephrotoxic medication. 2. Maintain slow diuresis, currently 40 mg of Lasix IV. I'll change it to 20 mg every 12 instead for evenly having urine output 3. Agree with levo fed, tapering regimen. 4. Watch BUN/creatinine electrolytes calcium phosphorus magnesium as needed. 5. discontinue vancomycin.
--- NOTE | 2016-06-06 11:41 | P.PN ---
Subjective Principal diagnosis: A. fib/a flutter This is a pleasant 66-year-old gentleman with a known CAD and status post CABG along with aortic valve replacement who was admitted to the hospital this time with atrial flutter and rapid ventricular response. He underwent an atrial flutter ablation few days ago. He was doing good until this yesterday when he went back into an A. fib with RVR and converted back into normal sinus mechanism. The patient was transferred to the selective unit yesterday but after he was transferred he developed an acute respiratory distress and he was transferred back to the intensive care unit where he was intubated and currently he is on ventilator. The blood pressure has been marginal. I decreased the dose of Lasix to 40 mg IV daily. He continues to be in a sinus rhythm. He continues to require a small dose of Levophed which we are trying to wean. I had a long discussion with the patient's family who would like to transfer the patient to another facility. I also had a discussion with the varnisher on service. On follow-up with the patient today, he is hemodynamically stable and he is off vasopressors. He is in process to be weaned. I will continue the Lasix at 40 mg IV daily and continue following up with him. Objective - Vital Signs Vital signs: Vital Signs Temp 98 F 06/06/16 08:00 Pulse 62 06/06/16 11:00 Resp 13 06/06/16 11:00 BP 80/53 06/04/16 21:42 Pulse Ox 98 06/06/16 11:00 Intake & Output 06/05/16 06/06/16 06/06/16 18:59 06:59 18:59 Intake Total 379.70 540 636.655 Output Total 535 1255 355 Balance -155.30 -715 281.655 Weight 83.2 kg Intake: IV 220 220 100 Sodium Chloride 0.9% 1, 220 220 100 000 ml @ 20 mls/hr IV . Q24H RONEL Rx#:[id number] Intake, IV Titration 149.70 50 466.655 Amount Norepinephrine 4 mg In 52.45 158.75 Sodium Chloride 0.9% 250 ml @ Titrate IV .Q0M RONEL Rx#:[id number] Piperacillin-Tazobactam 3 37.5 .375 gm In Dextrose/Water 1 50ml.bag @ 12.5 mls/hr IVPB Q8H RONEL Rx#: [id number] Propofol 500 mg In Empty 97.25 50 20.405 Bag 1 bag @ Titrate IV . Q0M RONEL Rx#:[id number] Vancomycin 1,250 mg In 250 Sodium Chloride 0.9% 250 ml @ 125 mls/hr IVPB Q16H RONEL Rx#:[id number] Oral 200 Tube Feeding 10 70 70 Output: Urine 535 1255 355 Other: Voiding Method Indwelling Catheter Indwelling Catheter Indwelling Catheter ABP, PAP, CO, CI - Last Documented Arterial Blood Pressure 105/42 - Constitutional General appearance: Present: no acute distress - Respiratory Respiratory: bilateral: diminished - Cardiovascular Rhythm: regular Heart sounds: normal: S1, S2 - Labs CBC & Chem 7: 06/06/16 04:40 06/06/16 04:40 Labs: Abnormal Lab Results - Last 24 Hours (Table) 06/05/16 06/05/16 06/05/16 Range/Units 04:10 04:10 12:10 RBC (4.30-5.90) m/uL Hgb (13.0-17.5) gm/dL Hct (39.0-53.0) % RDW (11.5-15.5) % Plt Count (150-450) k/uL ABG pO2 (83-108) mmHg ABG Total CO2 (19-24) mmol/L BUN (9-20) mg/dL Creatinine (0.66-1.25) mg/dL Glucose (74-99) mg/dL POC Glucose (mg/dL) 173 H (75-99) mg/dL Calcium (8.4-10.2) mg/dL Phosphorus (2.5-4.5) mg/dL Creatine Kinase 32 L (55-170) U/L Troponin I 0.197 H* (0.000-0.034) ng/mL 06/05/16 06/06/16 06/06/16 Range/Units 17:48 00:11 04:40 RBC 2.72 L (4.30-5.90) m/uL Hgb 8.4 L (13.0-17.5) gm/dL Hct 26.6 L (39.0-53.0) % RDW 16.5 H (11.5-15.5) % Plt Count 94 L (150-450) k/uL ABG pO2 (83-108) mmHg ABG Total CO2 (19-24) mmol/L BUN (9-20) mg/dL Creatinine (0.66-1.25) mg/dL Glucose (74-99) mg/dL POC Glucose (mg/dL) 159 H 187 H (75-99) mg/dL Calcium (8.4-10.2) mg/dL Phosphorus (2.5-4.5) mg/dL Creatine Kinase (55-170) U/L Troponin I (0.000-0.034) ng/mL 06/06/16 06/06/16 06/06/16 Range/Units 04:40 05:10 07:13 RBC (4.30-5.90) m/uL Hgb (13.0-17.5) gm/dL Hct (39.0-53.0) % RDW (11.5-15.5) % Plt Count (150-450) k/uL ABG pO2 81 L (83-108) mmHg ABG Total CO2 26 H (19-24) mmol/L BUN 51 H (9-20) mg/dL Creatinine 1.56 H (0.66-1.25) mg/dL Glucose 200 H (74-99) mg/dL POC Glucose (mg/dL) 205 H (75-99) mg/dL Calcium 7.9 L (8.4-10.2) mg/dL Phosphorus 5.7 H (2.5-4.5) mg/dL Creatine Kinase (55-170) U/L Troponin I (0.000-0.034) ng/mL Microbiology - Last 24 Hours (Table) 06/05/16 18:00 Urine Culture - Preliminary Urine,Catheterized Assessment and Plan Plan: Assessment #1 acute respiratory failure #2 paroxysmal atrial fibrillation #3 status post CABG and AVR #4 anemia seems to be stable #5 multiple comorbid conditions Plan #1 try to wean the patient from the ventilator #2 continue the current above dose of Lasix #3 continue following up with him
[2016-06-06 11:57] LABS: Glucose,Whole Blood 241 mg/dL (75-99)
[2016-06-06] MEDS: FUROSEMIDE 10 MG/ML 4 ML VIAL IV SCH (13:13)
--- NOTE | 2016-06-06 13:13 | P.PN ---
Subjective Principal diagnosis: Hypoxic respiratory failure Patient seen and examined in the ICU with nursing and family at bedside. The patient is awake and alert on the ventilator. Oxygenation and CXR are improving. Attempting SBT. Patient tolerating well. He is off pressors. He is adequately diuresing. Objective - Vital Signs Vital signs: Vital Signs Temp 98 F 06/06/16 08:00 Pulse 68 06/06/16 13:05 Resp 13 06/06/16 11:00 BP 80/53 06/04/16 21:42 Pulse Ox 98 06/06/16 11:00 Intake & Output 06/05/16 06/06/16 06/06/16 18:59 06:59 18:59 Intake Total 379.70 540 636.655 Output Total 535 1255 355 Balance -155.30 -715 281.655 Weight 83.2 kg Intake: IV 220 220 100 Sodium Chloride 0.9% 1, 220 220 100 000 ml @ 20 mls/hr IV . Q24H RONEL Rx#:[id number] Intake, IV Titration 149.70 50 466.655 Amount Norepinephrine 4 mg In 52.45 158.75 Sodium Chloride 0.9% 250 ml @ Titrate IV .Q0M RONEL Rx#:[id number] Piperacillin-Tazobactam 3 37.5 .375 gm In Dextrose/Water 1 50ml.bag @ 12.5 mls/hr IVPB Q8H RONEL Rx#: [id number] Propofol 500 mg In Empty 97.25 50 20.405 Bag 1 bag @ Titrate IV . Q0M RONEL Rx#:[id number] Vancomycin 1,250 mg In 250 Sodium Chloride 0.9% 250 ml @ 125 mls/hr IVPB Q16H RONEL Rx#:[id number] Oral 200 Tube Feeding 10 70 70 Output: Urine 535 1255 355 Other: Voiding Method Indwelling Catheter Indwelling Catheter Indwelling Catheter ABP, PAP, CO, CI - Last Documented Arterial Blood Pressure 105/42 - Exam Gen: Alert on vent CV: RRR, s1/s2 Lungs: bilateral crackles Abd: soft, NT/ND, +BS Ext: + edema - Labs CBC & Chem 7: 06/06/16 04:40 06/06/16 04:40 Labs: Abnormal Lab Results - Last 24 Hours (Table) 06/05/16 06/05/16 06/05/16 Range/Units 04:10 04:10 17:48 RBC (4.30-5.90) m/uL Hgb (13.0-17.5) gm/dL Hct (39.0-53.0) % RDW (11.5-15.5) % Plt Count (150-450) k/uL ABG pO2 (83-108) mmHg ABG Total CO2 (19-24) mmol/L BUN (9-20) mg/dL Creatinine (0.66-1.25) mg/dL Glucose (74-99) mg/dL POC Glucose (mg/dL) 159 H (75-99) mg/dL Calcium (8.4-10.2) mg/dL Phosphorus (2.5-4.5) mg/dL Creatine Kinase 32 L (55-170) U/L Troponin I 0.197 H* (0.000-0.034) ng/mL 06/06/16 06/06/16 06/06/16 Range/Units 00:11 04:40 04:40 RBC 2.72 L (4.30-5.90) m/uL Hgb 8.4 L (13.0-17.5) gm/dL Hct 26.6 L (39.0-53.0) % RDW 16.5 H (11.5-15.5) % Plt Count 94 L (150-450) k/uL ABG pO2 (83-108) mmHg ABG Total CO2 (19-24) mmol/L BUN 51 H (9-20) mg/dL Creatinine 1.56 H (0.66-1.25) mg/dL Glucose 200 H (74-99) mg/dL POC Glucose (mg/dL) 187 H (75-99) mg/dL Calcium 7.9 L (8.4-10.2) mg/dL Phosphorus 5.7 H (2.5-4.5) mg/dL Creatine Kinase (55-170) U/L Troponin I (0.000-0.034) ng/mL 06/06/16 06/06/16 06/06/16 Range/Units 05:10 07:13 11:55 RBC (4.30-5.90) m/uL Hgb (13.0-17.5) gm/dL Hct (39.0-53.0) % RDW (11.5-15.5) % Plt Count (150-450) k/uL ABG pO2 81 L (83-108) mmHg ABG Total CO2 26 H (19-24) mmol/L BUN (9-20) mg/dL Creatinine (0.66-1.25) mg/dL Glucose (74-99) mg/dL POC Glucose (mg/dL) 205 H 241 H (75-99) mg/dL Calcium (8.4-10.2) mg/dL Phosphorus (2.5-4.5) mg/dL Creatine Kinase (55-170) U/L Troponin I (0.000-0.034) ng/mL Microbiology - Last 24 Hours (Table) 06/05/16 18:00 Urine Culture - Preliminary Urine,Catheterized Assessment and Plan Plan: Acute hypoxic respiratory failure requiring mechanical ventilation Diffuse bilateral pulmonary edema, question noncardiogenic pulmonary edema versus hypersensitivity pneumonitis versus other Hypotension, possibly cardiogenic vs hypovolemic shock Acute exacerbation of CHF, diastolic, ejection fraction 45-50% Acute kidney injury Atrial fibrillation with rapid ventricular rate, status post ablation Pulmonary edema on CXR Small to trace pericardial effusion Hypoglycemic reaction, Hx DM2 Coronary artery disease, status post CABG and aortic valve replacement Hx hypertension Dyslipidemia COPD Pulmonary fibrosis with prior exposure to asbestos Anemia, macrocytic Thrombocytopenia SBT successful, ok to extubate now Diuresis per nephro Off levophed ABX: Continue Zosyn, DC vanco Discontinue propofol Schedule duo nebs Solu-Medrol, continue, will need usp taper I's and O's and daily weights GI and DVT prophylaxis: Eliquis, Protonix Cardiology recommendations Consult PT and OT, consult Dr. Villagomez Sputum, blood, urine cultures, no growth to date Nephrology consult, ID consult Overall prognosis is poor Will continue to monitor in the ICU
--- NOTE | 2016-06-06 14:53 | P.PN ---
Subjective This is a 66-year-old gentleman who is followed by Dr. Chaitanya Parr on an outpatient basis. On 04/22/2016 the patient presented to the emergency department at [facility], with complaints of dyspnea. The patient denied complaints of any chest pain, and nausea. On presentation to the emergency department at [facility], a 12-lead EKG was completed which showed him to have some ST elevation in his inferior leads. Subsequently, this patient was seen and examined by Dr. Scherer from [facility] and the patient was transferred to [facility] for further evaluation and workup. The patient was admitted to the hospital and underwent an urgent cardiac catheterization by Dr. Scherer, which demonstrated the patient to have a totally occluded right coronary artery, 80% stenosis to a circumflex coronary artery, a 90% stenosis to his proximal left anterior descending coronary artery, and a 60 % stenosis to his mid left anterior descending coronary artery. The patient also underwent a 2-D echocardiogram, which demonstrated mild concentric left ventricular hypertrophy, mild mitral regurgitation, mild tricuspid regurgitation , an overall left ventricular systolic function severely impaired with an ejection fraction of 25-30%, [id number] aortic stenosis with mitral aortic regurgitation, and a peak/mean gradient across the aortic valve of 42.44 mmHg and 22.56 mmHg. The above-mentioned studies were reviewed with the patient by Dr. Scherer and by Dr. Hardy and an urgent coronary artery bypass grafting surgery with aortic valve replacement was done using QUEZADA to LAD saphenous venous graft to the diagonal branch, SVG to the obtuse marginal branch , and 7 as well as SVG to the RCA, along with aortic valve bioprosthesis, his hospital course was completed by acute bronchitis with Serratia marcescens as well as tachybradycardia syndrome and eventually he was transferred to [facility] for physical therapy rehabilitation. Patient was readmitted to [facility] on May 18 for atrial flutter with rapid ventricular response and underwent cardioversion on 2015. He was also treated for acute on chronic diastolic heart failure. He was discharged back to [facility] on May 24. Patient stated that he was in fine up until today when he started feeling short of breath and that he was feeling off. He was transferred to [facility] emergency center where he was found to have an elevated heart rate and again in atrial flutter. His blood pressure was low and he received fluid boluses of 1-1/2 L total. Troponins were 0.060, 0.074, 0.075. ProBNP was 5590. Urinalysis was negative. Patient was seen by cardiology with plan to have Dr. Peck evaluate for possible cardiac ablation. Patient is seen at this time in the emergency room as he is waiting for a selective care bed to be made 06/03: He is status post EP study and ablation done on May 31. He was hypotensive following the procedure and was placed on dopamine and transferred to the intensive care unit and consult requested with Dr. Marin. He has subsequently been weaned off dopamine. This morning he has again in atrial fibrillation with heart rate running 116-120. Patient is status post 1 unit packed RBCs given on June 01 for hemoglobin of 8.0. Patient is complaining of a sore throat and thrush noted and started on nystatin. Rivers catheter has remained in place. Urine output has been good. 06/04: He has been transferred to the [facility]. Dr. Scherer added digoxin and amiodaronedrip. Anticoagulation is on hold due to hemoglobin of 9. Repeat hemoglobin today is 9.6. Blood sugars are again elevated running between 171 and 241. No changes in insulin due to his previous hypoglycemic episodes. Patient was started on Solu-Medrol yesterday. This morning, patient has increasing shortness of breath and his pulse ox was down to 72. Patient is now on a nonrebreather. Patient has been removing his nasal cannula. 06/05: Patient's respiratory status worsened over the night. He was placed on BiPAP and then ended up being intubated and placed on mechanical ventilation with tidal volume 450, FiO2 60% and PEEP of 5. Patient feeling was also quite confused. He is now on norepinephrine and amiodarone drips. Family is requesting the patient be transferred to another facility. Case management has met with family. Await final decision. 06/06: Family have decided against transfer to another facility. Patient has now been extubated. He is off vasopressors. Objective - Vital Signs Vital signs: Vital Signs Temp 97.7 F 06/06/16 12:00 Pulse 69 06/06/16 13:15 Resp 25 H 06/06/16 12:00 BP 80/53 06/04/16 21:42 Pulse Ox 97 06/06/16 12:00 Intake & Output 06/05/16 06/06/16 06/06/16 18:59 06:59 18:59 Intake Total 379.70 540 636.655 Output Total 535 1255 355 Balance -155.30 -715 281.655 Weight 83.2 kg Intake: IV 220 220 100 Sodium Chloride 0.9% 1, 220 220 100 000 ml @ 20 mls/hr IV . Q24H RONEL Rx#:[id number] Intake, IV Titration 149.70 50 466.655 Amount Norepinephrine 4 mg In 52.45 158.75 Sodium Chloride 0.9% 250 ml @ Titrate IV .Q0M RONEL Rx#:[id number] Piperacillin-Tazobactam 3 37.5 .375 gm In Dextrose/Water 1 50ml.bag @ 12.5 mls/hr IVPB Q8H RONEL Rx#: [id number] Propofol 500 mg In Empty 97.25 50 20.405 Bag 1 bag @ Titrate IV . Q0M RONEL Rx#:[id number] Vancomycin 1,250 mg In 250 Sodium Chloride 0.9% 250 ml @ 125 mls/hr IVPB Q16H RONEL Rx#:[id number] Oral 200 Tube Feeding 10 70 70 Output: Urine 535 1255 355 Other: Voiding Method Indwelling Catheter Indwelling Catheter Indwelling Catheter ABP, PAP, CO, CI - Last Documented Arterial Blood Pressure 115/39 - Exam Gen: This is a 66-year-old male. He is in ICU bed and appears to be in no acute distress. HEENT: Head is atraumatic, normocephalic. Pupils equal, round. Sclerae is anicteric. NECK: Supple. No JVD. No lymphadenopathy. No thyromegaly. LUNGS: Diminished bilateral bases with coarse breath sounds. No intercostal retractions. HEART: Regular rate and rhythm. Systolic murmur. ABDOMEN: Soft. Bowel sounds are present. No masses. No tenderness. EXTREMITIES: 1+ pedal edema bilaterally slightly worse on the right. Significant ecchymosis to the right leg. No calf tenderness. NEUROLOGICAL: Patient is awake alert and oriented 3. - Labs CBC & Chem 7: 06/06/16 04:40 06/06/16 04:40 Labs: Abnormal Lab Results - Last 24 Hours (Table) 06/05/16 06/05/16 06/05/16 Range/Units 04:10 04:10 17:48 RBC (4.30-5.90) m/uL Hgb (13.0-17.5) gm/dL Hct (39.0-53.0) % RDW (11.5-15.5) % Plt Count (150-450) k/uL ABG pO2 (83-108) mmHg ABG Total CO2 (19-24) mmol/L BUN (9-20) mg/dL Creatinine (0.66-1.25) mg/dL Glucose (74-99) mg/dL POC Glucose (mg/dL) 159 H (75-99) mg/dL Calcium (8.4-10.2) mg/dL Phosphorus (2.5-4.5) mg/dL Creatine Kinase 32 L (55-170) U/L Troponin I 0.197 H* (0.000-0.034) ng/mL 06/06/16 06/06/16 06/06/16 Range/Units 00:11 04:40 04:40 RBC 2.72 L (4.30-5.90) m/uL Hgb 8.4 L (13.0-17.5) gm/dL Hct 26.6 L (39.0-53.0) % RDW 16.5 H (11.5-15.5) % Plt Count 94 L (150-450) k/uL ABG pO2 (83-108) mmHg ABG Total CO2 (19-24) mmol/L BUN 51 H (9-20) mg/dL Creatinine 1.56 H (0.66-1.25) mg/dL Glucose 200 H (74-99) mg/dL POC Glucose (mg/dL) 187 H (75-99) mg/dL Calcium 7.9 L (8.4-10.2) mg/dL Phosphorus 5.7 H (2.5-4.5) mg/dL Creatine Kinase (55-170) U/L Troponin I (0.000-0.034) ng/mL 06/06/16 06/06/16 06/06/16 Range/Units 05:10 07:13 11:55 RBC (4.30-5.90) m/uL Hgb (13.0-17.5) gm/dL Hct (39.0-53.0) % RDW (11.5-15.5) % Plt Count (150-450) k/uL ABG pO2 81 L (83-108) mmHg ABG Total CO2 26 H (19-24) mmol/L BUN (9-20) mg/dL Creatinine (0.66-1.25) mg/dL Glucose (74-99) mg/dL POC Glucose (mg/dL) 205 H 241 H (75-99) mg/dL Calcium (8.4-10.2) mg/dL Phosphorus (2.5-4.5) mg/dL Creatine Kinase (55-170) U/L Troponin I (0.000-0.034) ng/mL Microbiology - Last 24 Hours (Table) 06/05/16 18:00 Urine Culture - Preliminary Urine,Catheterized Assessment and Plan Plan: 1. Atrial flutter with rapid ventricular response with previous history of electrical cardioversions status post ablation on May 31. Patient has been seen by cardiology. Continue amiodarone and eliquis. He did receive bolus dose of Cardizem but due to hypotension, Cardizem drip was not started. 2. Coronary artery disease status post coronary artery bypass graft with QUEZADA to LAD, SVG to the diagonal branch, SVG to obtuse marginal branch, SVG to RCA with severe LV dysfunction. 3. Moderate to severe aortic valve stenosis status post bioprosthetic aortic valve replacement. Stable at this point in time. 4. Hypertension. Currently hypotensive. Patient is normally on Coreg 3.125 mg every 12 hours, Lasix 20 mg daily, lisinopril 2.5 mg daily. Patient has been hypotensive and parameters in place for his antihypertensive medications. 5. Hyperlipidemia. Continue Lipitor. 6. Medical debility. Return to [facility] with the patient is more stable. 7. COPD with acute exacerbation. Continue DuoNeb treatments 4 times daily, Pulmicort 0.5 mg twice daily, Solu-Medrol 60 mg IV every 6 hours. 8. 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 9. Chronic diastolic heart failure, last ELIZABETH performed 05/09/2016 ejection fraction 45-50%. Continue Lasix 20 mg daily with potassium supplement. 7. Acute exacerbation of diastolic heart failure. Patient was started on Lasix 40 mg IV every 12 hours. 8. Diabetes mellitus type 2, uncontrolled with hypoglycemia. Patient is on D5W. Hypoglycemic medications are on hold. 9. Postprocedural hypotension, possibly due to cardiogenic or hypovolemic shock. Currently not requiring vasopressors. 10. DVT prophylaxis. Eliquis. 11. GI prophylaxis. Continue patient on Protonix 40 mg orally once every day. 12. Thrush. Nystatin started. 13. Acute on chronic hypoxic respiratory failure requiring intubation and mechanical ventilation. Patient is followed by Dr. Marin. CODE STATUS is full code. 14. Anemia of chronic disease requiring 1 unit of packed RBCs. 15. Diffuse bilateral pulmonary edema, possible diffuse pneumonia on chest x- ray. Patient was started on Zosyn by pulmonary medicine. Discharge plan: Return to [facility]. Impression and plan of care have been directed as dictated by the signing physician. Diane Young nurse practitioner acting as scribe for signing physician. Time with Patient: Greater than 30
[2016-06-06 17:05] LABS: Glucose,Whole Blood 204 mg/dL (75-99)
[2016-06-06] MEDS: SODIUM CHLORIDE 0.9% 1,000 ML IV SCH (17:40)
[2016-06-06] MEDS: TAMSULOSIN 0.4 MG CAP.ER.24H PO SCH (17:42)
[2016-06-06 18:31] LABS: ABG Base Excess 1.1 mmol/L; ABG HCO3 25 mmol/L (21-25); ABG PCO2 37 mmHg (35-45); ABG PH 7.44 (7.35-7.45); ABG PO2 102 mmHg (83-108); ABG TCO2 26 mmol/L (19-24)
--- NOTE | 2016-06-06 20:34 | CONS ---
DATE OF CONSULTATION: 06/06/2016 REASON FOR CONSULTATION: Infection. HISTORY OF PRESENT ILLNESS: The patient is a 66-year-old male with a recent inferior wall MA. Patient is status post cardiac catheterization with stenosis in the left anterior descending. The patient is status post coronary artery bypass graft and aortic valve replacement. Post surgery the patient seemed to have a complicated course and has multiple admissions to this facility. On this admission the patient presented with increasing shortness of breath. Patient was noted to be in atrial fibrillation with RVR. The patient did have an EP study done on May 31, and the patient did become hypertensive post procedure and was admitted to the ICU. Last night the patient went into respiratory distress. Initially the patient was managed on a BiPAP; however, the patient ended up being intubated on the ventilator. The patient was hypotensive, requiring pressor support in the form of Levophed. That has weaned off this morning. The patient did not spike any fever but has a slightly elevated white count of 15.4. Blood cultures were ordered. Sputum culture was requested though not completed. Chest x-ray with evidence of alveolar edema. Patient has been treated with Solu-Medrol in addition to piperacillin tazobactam and vancomycin. I was asked to see the patient for further recommendation. I did supervisor picking crew the consult only this morning, as I was not notified. At the time of my evaluation this morning, the patient was on the vent. The weaning parameter was on trial. Most of the information has been obtained from review of the chart, talking to the nursing staff, as well as the brother who was present at bedside. The patient was unable to provide any history. RN did mention that there were no significant purulent secretions through the ET, though. Review of systems could not be reliably obtained. The positive points have been mentioned in the HPI. Past medical history is significant for: 1. Coronary artery disease. 2. Atrial fibrillation. 3. COPD. 4. Diabetes mellitus. 5. Gastroesophageal reflux disease. 6. Hypertension. 7. Hyperlipidemia. 8. Pneumonia. 9. Benign prostatic hypertrophy. 10. Previous history of MRSA infection. PAST SURGICAL HISTORY: 1. Coronary artery bypass grafting. 2. Aortic valve replacement. 3. Heart catheterization. SOCIAL HISTORY: Patient does have a significant history of smoking; quit back in March of 2016. Socially drinks. No drug use. FAMILY HISTORY: Mother with history of diabetes and MA. Father with history of colon and prostate cancer. ALLERGIES: NO KNOWN DRUG ALLERGIES. Medications currently include: 1. Ventolin. 2. DuoNeb. 3. Zyloprim. 4. Amiodarone. 5. Eliquis. 6. Aspirin. 7. Lipitor. 8. Dulcolax. 9. Pulmicort. 10. Lanoxin. 11. Iron sulfate. 12. Lasix. 13. Mucinex. 14. Lantus. 15. Humalog. 16. Ativan. 17. Solu-Medrol. 18. Piperacillin tazobactam. 19. K-Dur. 20. Flomax. 21. Ultram. On examination, blood pressure is 115/39 with a pulse of 68, temperature 97.7. He was 97% on ventilator when seen this morning. General description is an elderly male lying in bed in no distress. No tachypnea or accessory muscle of respiration use. HEENT examination shows slight pallor. No scleral icterus. Patient is orally intubated. NECK: Trachea is central. No thyromegaly. LUNGS: Unlabored breathing. Decreased breath sounds at the bases. No wheeze. HEART: S1, S2. Irregular rhythm. ABDOMEN: Soft. No tenderness. EXTREMITIES: No edema of feet. SKIN EXAMINATION: No rash or mass palpable. Neurologically the patient is intubated on the vent. LABS: Hemoglobin 8.6, white count 15.4 with a BUN of 51, creatinine 1.56. Electrolytes have been normal. Blood culture obtained yesterday has been negative for far. Urine is so far negative. Chest x-ray report as mentioned above. DIAGNOSTIC IMPRESSION AND PLAN: Patient with acute respiratory failure, ventilator-dependent; could be more likely secondary to underlying cardiac etiology. The patient did have slightly elevated white count and hypertension, more likely secondary to cardiac event. Clinically suspicion remains low for a pneumonia process. No evidence or episodes of coughing, vomiting or aspiration. PLAN: 1. We will try to obtain sputum for culture and sensitivity. 2. May continue on the empiric antibiotic while waiting for his condition to stabilize and the cultures to finalize. 3. Will follow up on the clinical condition and cultures to further adjust medication if needed. Thank you for this consultation. Will follow this patient along with you. SEEMA
[2016-06-06 21:14] LABS: Glucose,Whole Blood 173 mg/dL (75-99)
[2016-06-06] MEDS: ATORVASTATIN 40 MG TAB PO SCH (21:16)
[2016-06-06] MEDS: QUEtiapine 25 MG TAB PO SCH (21:16)
[2016-06-06] MEDS: SENNOSIDES 8.6 MG TAB PO SCH (21:16)
[2016-06-07] MEDS: PIPERACILLIN-TAZOBACTAM 3.375 GM in DEXTROSE/WATER 1 50ML.BAG IVPB SCH ×3 (03:12→16:07)
[2016-06-07] MEDS: INSULIN LISPRO (humaLOG) 300 UNIT/3 ML VIAL SQ SCH ×6 (03:12→19:59)
[2016-06-07] MEDS: MELATONIN 3 MG TABLET PO SCH ×2 (03:15→20:09)
[2016-06-07 03:51] LABS: Anisocytosis Slight; CH 30.8; CHCM 31.9; HDW 3.59; HGB 7.9 gm/dL (13.0-17.5); Hypochromasia Moderate; MCH 29.4 pg (25.0-35.0); MCHC 30.3 g/dL (31.0-37.0); MCV 97.1 fL (80.0-100.0); Macrocytosis Slight; Mean Platelet Volume 8.5; Poikilocytosis Slight; RBC 2.68 m/uL (4.30-5.90); RDW 16.8 % (11.5-15.5); WBC 7.2 k/uL (3.8-10.6)
[2016-06-07 03:59] LABS: Anion Gap 9 mmol/L; Blood Urea Nitrogen 52 mg/dL (9-20); Calcium 7.9 mg/dL (8.4-10.2); Carbon Dioxide 32 mmol/L (22-30); Chloride 100 mmol/L (98-107); Glucose 171 mg/dL (74-99); Magnesium 2.3 mg/dL (1.6-2.3); Non-African American GFR(MDRD) 50 (>60 ml/min/1.73 sqM); Phosphorous 4.8 mg/dL (2.5-4.5); Potassium 3.6 mmol/L (3.5-5.1); Sodium 141 mmol/L (137-145)
[2016-06-07] MEDS: methylPREDNISolone SOD SUCCI 125 MG/2 ML VIAL IV SCH ×2 (06:23)
[2016-06-07] MEDS ORDERED: VANCOMYCIN 1,250 MG in SODIUM CHLORIDE 0.9% 250 ML IVPB SCH (07:00)
[2016-06-07] MEDS ORDERED: Potassium Replacement Protocol 1 EACH MISC MISCELLANE PRN (07:15)
[2016-06-07] MEDS: BUDESONIDE 0.5 MG/2 ML NEBU INHALATION SCH ×2 (07:46→19:58)
[2016-06-07] MEDS: IPRATROPIUM-ALBUTEROL 3 ML NEB INHALATION SCH ×4 (07:46→19:58)
--- NOTE | 2016-06-07 07:52 | XR ---
EXAMINATION TYPE: XR chest 1V portable DATE OF EXAM: 06/07/2016 7:09 AM COMPARISON: 06/06/2016 HISTORY: Shortness of breath TECHNIQUE: Single frontal view of the chest is obtained. FINDINGS: There are bilateral pleural effusions with cardiomegaly and bibasilar infiltrate. There is a diffuse interstitial pattern. Postsurgical change noted. ET and NG tube have been removed. IMPRESSION: 1. Diffuse airspace disease. Represents CHF or diffuse pneumonia. Underlying COPD or chronic intersti tial lung disease in the differential.
[2016-06-07 08:00] LABS: Glucose,Whole Blood 180 mg/dL (75-99)
[2016-06-07] MEDS ORDERED: POTASSIUM CHLORIDE ER 20 MEQ TAB.ER PO SCH (08:00)
[2016-06-07] MEDS: POTASSIUM CHLORIDE ER 20 MEQ TAB.ER PO SCH (08:03)
[2016-06-07] MEDS: THIAMINE 100 MG TAB PO SCH ×2 (08:04→16:08)
[2016-06-07] MEDS: AMIODARONE 200 MG TAB PO SCH ×2 (08:04→20:08)
[2016-06-07] MEDS: guaiFENesin 600 MG TABLET.ER PO SCH ×2 (08:05→20:09)
[2016-06-07] MEDS: MULTIVITAMINS, THERA 1 EACH TAB PO SCH (08:05)
[2016-06-07] MEDS: METOPROLOL TARTRATE 25 MG TAB PO SCH ×3 (08:05→22:28)
[2016-06-07] MEDS: FUROSEMIDE 10 MG/ML 4 ML VIAL IV SCH (08:05)
[2016-06-07] MEDS: ASPIRIN 81 MG CHEW PO SCH (08:05)
[2016-06-07] MEDS: DIGOXIN 125 MCG TAB PO SCH (08:06)
[2016-06-07] MEDS: PANTOPRAZOLE 40 MG/10 ML VIAL IVP SCH (08:06)
[2016-06-07] MEDS: FERROUS SULFATE 325 MG TAB PO SCH (08:06)
[2016-06-07] MEDS: CHLORHEXIDINE GLUCONATE 15 ML CUP MUCOUS MEM SCH (08:10)
--- NOTE | 2016-06-07 09:38 | P.PN ---
Subjective Principal diagnosis: A. fib/a flutter This is a pleasant 66-year-old gentleman with a known CAD and status post CABG along with aortic valve replacement who was admitted to the hospital this time with atrial flutter and rapid ventricular response. He underwent an atrial flutter ablation few days ago. He was doing good until this yesterday when he went back into an A. fib with RVR and converted back into normal sinus mechanism. The patient was transferred to the selective unit yesterday but after he was transferred he developed an acute respiratory distress and he was transferred back to the intensive care unit where he was intubated and currently he is on ventilator. The patient was extubated yesterday. Hemodynamically the blood pressure has been good but the heart rate has been in the 100 and the EKG showed what it seems to be A. fib/atrial flutter. I am going to increase the dose of metoprolol to 50 mg by mouth twice a day. I would continue the patient on Lasix at 40 mg IV daily. Objective - Vital Signs Vital signs: Vital Signs Temp 97.7 F 06/07/16 04:00 Pulse 68 06/07/16 08:00 Resp 29 H 06/07/16 07:00 BP 80/53 06/04/16 21:42 Pulse Ox 90 L 06/07/16 07:00 Intake & Output 06/06/16 06/07/16 06/07/16 18:59 06:59 18:59 Intake Total 801.655 252.5 40 Output Total 1405 1341 120 Balance -603.345 -1088.5 -80 Weight 82.6 kg Intake: IV 240 240 40 Sodium Chloride 0.9% 1, 240 240 40 000 ml @ 20 mls/hr IV . Q24H [facility] Rx#:[id number] Intake, IV Titration 491.655 12.5 Amount Norepinephrine 4 mg In 158.75 Sodium Chloride 0.9% 250 ml @ Titrate IV .Q0M [facility] Rx#:[id number] Piperacillin-Tazobactam 3 62.5 12.5 .375 gm In Dextrose/Water 1 50ml.bag @ 12.5 mls/hr IVPB Q8H [facility] Rx#: [id number] Propofol 500 mg In Empty 20.405 Bag 1 bag @ Titrate IV . Q0M [facility] Rx#:[id number] Vancomycin 1,250 mg In 250 Sodium Chloride 0.9% 250 ml @ 125 mls/hr IVPB Q16H [facility] Rx#:[id number] Tube Feeding 70 Output: Urine 1405 1341 120 Other: Voiding Method Indwelling Catheter Indwelling Catheter ABP, PAP, CO, CI - Last Documented Arterial Blood Pressure 140/47 - Constitutional General appearance: Present: no acute distress - Respiratory Respiratory: bilateral: diminished - Cardiovascular Rhythm: irregularly irregular Heart sounds: normal: S1, S2 - Labs CBC & Chem 7: 06/07/16 03:30 06/07/16 03:30 Labs: Abnormal Lab Results - Last 24 Hours (Table) 06/06/16 06/06/16 06/06/16 Range/Units 11:55 12:03 17:03 RBC (4.30-5.90) m/uL Hgb (13.0-17.5) gm/dL Hct (39.0-53.0) % MCHC (31.0-37.0) g/dL RDW (11.5-15.5) % Plt Count (150-450) k/uL ABG Total CO2 26 H (19-24) mmol/L ABG O2 Saturation 98.0 H (94-97) % Carbon Dioxide (22-30) mmol/L BUN (9-20) mg/dL Creatinine (0.66-1.25) mg/dL Glucose (74-99) mg/dL POC Glucose (mg/dL) 241 H 204 H (75-99) mg/dL Calcium (8.4-10.2) mg/dL Phosphorus (2.5-4.5) mg/dL 06/06/16 06/07/16 06/07/16 Range/Units 21:11 03:30 03:30 RBC 2.68 L (4.30-5.90) m/uL Hgb 7.9 L (13.0-17.5) gm/dL Hct 26.0 L (39.0-53.0) % MCHC 30.3 L (31.0-37.0) g/dL RDW 16.8 H (11.5-15.5) % Plt Count 74 L (150-450) k/uL ABG Total CO2 (19-24) mmol/L ABG O2 Saturation (94-97) % Carbon Dioxide 32 H (22-30) mmol/L BUN 52 H (9-20) mg/dL Creatinine 1.40 H (0.66-1.25) mg/dL Glucose 171 H (74-99) mg/dL POC Glucose (mg/dL) 173 H (75-99) mg/dL Calcium 7.9 L (8.4-10.2) mg/dL Phosphorus 4.8 H (2.5-4.5) mg/dL 06/07/16 Range/Units 07:57 RBC (4.30-5.90) m/uL Hgb (13.0-17.5) gm/dL Hct (39.0-53.0) % MCHC (31.0-37.0) g/dL RDW (11.5-15.5) % Plt Count (150-450) k/uL ABG Total CO2 (19-24) mmol/L ABG O2 Saturation (94-97) % Carbon Dioxide (22-30) mmol/L BUN (9-20) mg/dL Creatinine (0.66-1.25) mg/dL Glucose (74-99) mg/dL POC Glucose (mg/dL) 180 H (75-99) mg/dL Calcium (8.4-10.2) mg/dL Phosphorus (2.5-4.5) mg/dL Microbiology - Last 24 Hours (Table) 06/05/16 21:30 Blood Culture - Preliminary Blood No Growth after 24 hours 06/05/16 18:00 Urine Culture - Final Urine,Catheterized 06/06/16 12:25 Sputum Culture - Preliminary Sputum 06/05/16 13:12 Blood Culture - Preliminary Blood No Growth after 24 hours Assessment and Plan Plan: Assessment #1 acute respiratory failure #2 paroxysmal atrial fibrillation #3 status post CABG and AVR #4 anemia seems to be stable #5 multiple comorbid conditions Plan #1 the patient was extubated #2 continue the current above dose of Lasix #3 continue following up with him
--- NOTE | 2016-06-07 10:06 | P.CONS ---
History of Present Illness - Chief Complaint Medical debility - History of Present Illness I had the opportunity to see patient for inpatient rehab consultation with regard to medical debility. Patient has history of recent 4 vessel bypass and aVR. Admitted May 30 with hypotension, tachycardia, shortness of breath, chest pain or discomfort and nausea. Seen by cardiology and pulmonary for cardiogenic shock. Cardiology did perform ablation procedure. Seen by Dr. Chin for left femoral puncture, note Doppler done, negative for aneurysm or rupture. Seen by Dr. Molina for acute kidney injury. PT and OT prescribed. Serial chest x-rays followed for CHF versus pneumonia did note underlying COPD and chronic interstitial lung disease. Previous function was: As elicited from patient corroborative by nephew: Right- handed lives in a 1 floor home with girlfriend and 2 kids. Retired. Girlfriend does the cooking and laundry. Patient admitted with driving and standing shower. Regular doctors Dr. Padilla. Family history of mother with cancer and heart attack. Review of Systems Review of systems: ENT: Denies sneezes or discharge. Eyes: Denies discharge or photophobia. Cardiac: Denies chest pain or palpitation. Pulmonary: Denies cough or shortness of breath. Gastrointestinal: Denies nausea, emesis, constipation, diarrhea. Genitourinary: Denies discharge or frequency. Musculoskeletal: Denies muscle or bone aches. Neurologic: Denies motor or sensory change. Endocrine: Denies shakes or sweats. Oncology: Denies cancers. Dermatologic: Denies rash, itching, pruritus. ALLERGY/immunology: Denies sneezes, rashes. Past Medical History Past Medical History: Atrial Fibrillation, Coronary Artery Disease (CAD), Chest Pain / Angina, COPD, Diabetes Mellitus, GERD/Reflux, Hyperlipidemia, Hypertension, Myocardial Infarction (N[place]), Osteoarthritis (OA), Pneumonia, Prostate Disorder, Respiratory Disorder, Vascular Disorder Additional Past Medical History / Comment(s): Severe left ventricular dysfunction, pulmonary fibrosis, gout, BPH Last Myocardial Infarction Date:: 03/2016 History of Any Multi-Drug Resistant Organisms: MRSA Year Discovered:: 04/12/16 MDRO Source:: NASAL Past Surgical History: Coronary Bypass/CABG, Heart Catheterization Additional Past Surgical History / Comment(s): Nasal polyps, left heart catheterization, quadruple bypass 04/2016, cardioversions x 2. Past Anesthesia/Blood Transfusion Reactions: No Reported Reaction Past Psychological History: No Psychological Hx Reported Additional Psychological History / Comment(s): Pt currently is staying at [facility] for rehab. He states he was up walking short distances with a walker. He used to do metallurgy work. Smoking Status: Former smoker Past Alcohol Use History: Daily Additional Past Alcohol Use History / Comment(s): pt used to drink 2 beers daily but. pt has been at [facility] for rehab so no alochol use there. Pt started smoking in 1972 and quit in March 2016. Past Drug Use History: None Reported - Past Family History Mother Family Medical History: Diabetes Mellitus, Myocardial Infarction ([place]) Additional Family Medical History / Comment(s): Mother had her first NJ at the age of 35ys. She of a [place] at the age of 62yrs. Father Family Medical History: Cancer Additional Family Medical History / Comment(s): Father had colon and prostate cancer. He at the age of 89yrs. Brother(s) Family Medical History: Hypertension Sister(s) Family Medical History: No Reported History Son(s) Family Medical History: No Reported History Medications and Allergies Home Medications Medication Instructions Recorded Confirmed Type Allopurinol [Zyloprim] 100 mg PO DAILY PRN 04/22/16 05/30/16 History Atorvastatin [Lipitor] 40 mg PO HS 05/18/16 05/30/16 History Multivitamins, Thera [Multivitamin] 1 tab PO QAM 05/18/16 05/30/16 History Sennosides [Senna] 17.2 mg PO HS 05/18/16 05/30/16 History Amino Acids/Protein Hydrolys 30 ml PO BID 05/30/16 05/30/16 History [Pro-Stat Supplement] Carvedilol [Coreg] 3.125 mg PO Q12H 05/30/16 05/30/16 History Ferrous Sulfate [Iron (65 MG 325 mg PO QAM 05/30/16 05/30/16 History Elemental)] INSULIN LISPRO (humaLOG) [HumaLOG] 2 units SQ BID@1130,1630 05/30/16 05/30/16 History INSULIN LISPRO (humaLOG) [humaLOG 3 unit SQ AC-BRKFST 05/30/16 05/30/16 History (formulary)] Melatonin 3 mg PO HS 05/30/16 05/30/16 History Nystatin 100,000 Unit/ml Susp 5 ml PO Q6H PRN 05/30/16 05/30/16 History [Mycostatin Oral Susp] Potassium Chloride [K-Tab ER] 20 meq PO DAILY 05/30/16 05/30/16 History QUEtiapine [SEROquel] 12.5 mg PO HS 05/30/16 05/30/16 History predniSONE See Taper PO DAILY 05/30/16 05/30/16 History Allergies Allergy/AdvReac Type Severity Reaction Status Date / Time No Known Allergies Allergy Verified 05/30/16 07:09 Physical Exam Vitals: Vital Signs Temp Pulse Resp Pulse Ox 06/07/16 09:00 116 H 24 92 L 06/07/16 08:00 98.9 F 72 17 97 06/07/16 07:46 68 06/07/16 07:00 73 29 H 90 L 06/07/16 06:00 70 16 91 L 06/07/16 05:00 68 12 93 L 06/07/16 04:00 97.7 F 69 14 99 06/07/16 03:00 69 13 94 L 06/07/16 02:00 69 13 95 06/07/16 01:00 136 H 13 95 06/07/16 00:00 97.9 F 66 11 L 97 06/06/16 23:00 72 14 97 06/06/16 22:00 129 H 17 94 L 06/06/16 21:01 74 06/06/16 21:00 73 13 98 06/06/16 20:00 96.8 F L 71 17 97 06/06/16 19:55 69 06/06/16 19:00 68 19 94 L 06/06/16 18:00 72 13 94 L 06/06/16 17:00 73 14 95 06/06/16 16:40 70 06/06/16 16:23 68 06/06/16 16:00 98.3 F 67 12 99 06/06/16 15:00 66 14 95 06/06/16 14:00 68 10 L 99 06/06/16 13:15 69 06/06/16 13:05 68 06/06/16 13:00 64 12 97 06/06/16 12:00 97.7 F 68 25 H 97 06/06/16 11:00 62 13 98 Intake and Output 06/06/16 06/07/16 06/07/16 22:59 06:59 14:59 Intake Total 197.5 160 80 Output Total 1395 596 470 Balance -1197.5 -436 -390 Intake: IV 160 160 80 Sodium Chloride 0.9% 1, 160 160 80 000 ml @ 20 mls/hr IV . Q24H [facility] Rx#:[id number] Intake, IV Titration 37.5 Amount Piperacillin-Tazobactam 3 37.5 .375 gm In Dextrose/Water 1 50ml.bag @ 12.5 mls/hr IVPB Q8H [facility] Rx#: [id number] Output: Urine 1395 596 470 Other: Voiding Method Indwelling Catheter Indwelling Catheter Weight 82.6 kg ABP, PAP, CO, CI - Last 8 Hours Arterial Blood Pressure 127/51 Arterial Blood Pressure 127/42 Arterial Blood Pressure 140/47 Arterial Blood Pressure 128/50 Arterial Blood Pressure 125/47 Arterial Blood Pressure 156/59 Arterial Blood Pressure 128/51 Skin: Good color, texture, turgor. General: Overweight and comfortable but fatigued appearance. Head: Normocephalic, atraumatic. Eyes: Symmetric. Pupils equal round. Ears: Symmetric. Hearing within normal limits. Mouth: Clear. Neck: Supple. Carotid without bruit. Cardiac: Regular rate and rhythm. Lungs: Clear anteriorly and posteriorly. Abdomen: Soft active nontender, overweight. Extremities: Normal tone. Neurological: Mental status: Alert, cooperative, pleasant. Cranial nerves: Symmetric facial tone and trapezius. Motor: Can actively elevate all limbs off of bed. Sensation: Intact throughout. DTRs: Absent and equal throughout. Mobility: Multiple lines so did not attempt to sit or stand on my own today. Results CBC & Chem 7: 06/07/16 03:30 06/07/16 03:30 Labs: Abnormal Lab Results - Last 24 Hours (Table) 06/06/16 06/06/16 06/06/16 Range/Units 11:55 12:03 17:03 RBC (4.30-5.90) m/uL Hgb (13.0-17.5) gm/dL Hct (39.0-53.0) % MCHC (31.0-37.0) g/dL RDW (11.5-15.5) % Plt Count (150-450) k/uL ABG Total CO2 26 H (19-24) mmol/L ABG O2 Saturation 98.0 H (94-97) % Carbon Dioxide (22-30) mmol/L BUN (9-20) mg/dL Creatinine (0.66-1.25) mg/dL Glucose (74-99) mg/dL POC Glucose (mg/dL) 241 H 204 H (75-99) mg/dL Calcium (8.4-10.2) mg/dL Phosphorus (2.5-4.5) mg/dL 06/06/16 06/07/16 06/07/16 Range/Units 21:11 03:30 03:30 RBC 2.68 L (4.30-5.90) m/uL Hgb 7.9 L (13.0-17.5) gm/dL Hct 26.0 L (39.0-53.0) % MCHC 30.3 L (31.0-37.0) g/dL RDW 16.8 H (11.5-15.5) % Plt Count 74 L (150-450) k/uL ABG Total CO2 (19-24) mmol/L ABG O2 Saturation (94-97) % Carbon Dioxide 32 H (22-30) mmol/L BUN 52 H (9-20) mg/dL Creatinine 1.40 H (0.66-1.25) mg/dL Glucose 171 H (74-99) mg/dL POC Glucose (mg/dL) 173 H (75-99) mg/dL Calcium 7.9 L (8.4-10.2) mg/dL Phosphorus 4.8 H (2.5-4.5) mg/dL 06/07/16 Range/Units 07:57 RBC (4.30-5.90) m/uL Hgb (13.0-17.5) gm/dL Hct (39.0-53.0) % MCHC (31.0-37.0) g/dL RDW (11.5-15.5) % Plt Count (150-450) k/uL ABG Total CO2 (19-24) mmol/L ABG O2 Saturation (94-97) % Carbon Dioxide (22-30) mmol/L BUN (9-20) mg/dL Creatinine (0.66-1.25) mg/dL Glucose (74-99) mg/dL POC Glucose (mg/dL) 180 H (75-99) mg/dL Calcium (8.4-10.2) mg/dL Phosphorus (2.5-4.5) mg/dL Microbiology - Last 24 Hours (Table) 06/05/16 21:30 Blood Culture - Preliminary Blood No Growth after 24 hours 06/05/16 18:00 Urine Culture - Final Urine,Catheterized 06/06/16 12:25 Sputum Culture - Preliminary Sputum 06/05/16 13:12 Blood Culture - Preliminary Blood No Growth after 24 hours Chest x-ray: report reviewed (Serial chest x-rays followed for CHF versus pneumonia. Note underlying COPD and chronic interstitial lung disease.) Assessment and Plan (1) CHF (congestive heart failure) Status: Acute Plan: Impression: 1. Cardiac debility. 2. CHF. 3. Recent 4 vessel coronary bypass and aVR. 4. Atrial flutter with cardioversion and a ablation, this admission. 5. Cardiac disease with history of [place]. 6. Diabetes. 7. Hypertension. 8. COPD. 9. Hyperlipidemia. Comments and plan: At this time physical neck facial therapies prescribed. We' ll follow therapies with yourself. Would anticipate a limited endurance currently. Thus would it anticipate safety concerns as well and will follow closely with you.
[2016-06-07] MEDS ORDERED: ATROPINE SULFATE 0.1 MG/ML 10ML SYRINGE ONE (10:25)
[2016-06-07 11:50] LABS: Glucose,Whole Blood 234 mg/dL (75-99)
--- NOTE | 2016-06-07 12:02 | P.PN ---
Subjective Principal diagnosis: Hypoxemia Patient seen and examined in the ICU with nursing staff and family at bedside. Patient was extubated successfully yesterday. He is on 5 L nasal cannula with an O2 saturation around 94%. The patient states his breathing is a little better today. He is diuresing well. He did go into atrial fibrillation/atrial flutter this morning and cardiology is adjusting his medications. He is otherwise hemodynamically stable. Objective - Vital Signs Vital signs: Vital Signs Temp 98.9 F 06/07/16 08:00 Pulse 72 06/07/16 11:26 Resp 23 06/07/16 11:00 BP 80/53 06/04/16 21:42 Pulse Ox 94 L 06/07/16 11:00 Intake & Output 06/06/16 06/07/16 06/07/16 18:59 06:59 18:59 Intake Total 801.655 252.5 100 Output Total 1405 1341 745 Balance -603.345 -1088.5 -645 Weight 82.6 kg Intake: IV 240 240 100 Sodium Chloride 0.9% 1, 240 240 100 000 ml @ 20 mls/hr IV . Q24H [facility] Rx#:[id number] Intake, IV Titration 491.655 12.5 Amount Norepinephrine 4 mg In 158.75 Sodium Chloride 0.9% 250 ml @ Titrate IV .Q0M [facility] Rx#:[id number] Piperacillin-Tazobactam 3 62.5 12.5 .375 gm In Dextrose/Water 1 50ml.bag @ 12.5 mls/hr IVPB Q8H [facility] Rx#: [id number] Propofol 500 mg In Empty 20.405 Bag 1 bag @ Titrate IV . Q0M [facility] Rx#:[id number] Vancomycin 1,250 mg In 250 Sodium Chloride 0.9% 250 ml @ 125 mls/hr IVPB Q16H [facility] Rx#:[id number] Tube Feeding 70 Output: Urine 1405 1341 745 Other: Voiding Method Indwelling Catheter Indwelling Catheter Indwelling Catheter ABP, PAP, CO, CI - Last Documented Arterial Blood Pressure 128/44 - Exam Gen.: Alert and oriented 3, no acute distress Cardiovascular: Irregular rate and rhythm, S1/S2 Lungs: Coarse breath sounds bilaterally Abdomen: Soft nontender nondistended positive bowel sounds Extremities: 1+ pitting edema - Labs CBC & Chem 7: 06/07/16 03:30 06/07/16 03:30 Labs: Abnormal Lab Results - Last 24 Hours (Table) 06/06/16 06/06/16 06/06/16 Range/Units 12:03 17:03 21:11 RBC (4.30-5.90) m/uL Hgb (13.0-17.5) gm/dL Hct (39.0-53.0) % MCHC (31.0-37.0) g/dL RDW (11.5-15.5) % Plt Count (150-450) k/uL ABG Total CO2 26 H (19-24) mmol/L ABG O2 Saturation 98.0 H (94-97) % Carbon Dioxide (22-30) mmol/L BUN (9-20) mg/dL Creatinine (0.66-1.25) mg/dL Glucose (74-99) mg/dL POC Glucose (mg/dL) 204 H 173 H (75-99) mg/dL Calcium (8.4-10.2) mg/dL Phosphorus (2.5-4.5) mg/dL 06/07/16 06/07/16 06/07/16 Range/Units 03:30 03:30 07:57 RBC 2.68 L (4.30-5.90) m/uL Hgb 7.9 L (13.0-17.5) gm/dL Hct 26.0 L (39.0-53.0) % MCHC 30.3 L (31.0-37.0) g/dL RDW 16.8 H (11.5-15.5) % Plt Count 74 L (150-450) k/uL ABG Total CO2 (19-24) mmol/L ABG O2 Saturation (94-97) % Carbon Dioxide 32 H (22-30) mmol/L BUN 52 H (9-20) mg/dL Creatinine 1.40 H (0.66-1.25) mg/dL Glucose 171 H (74-99) mg/dL POC Glucose (mg/dL) 180 H (75-99) mg/dL Calcium 7.9 L (8.4-10.2) mg/dL Phosphorus 4.8 H (2.5-4.5) mg/dL 06/07/16 Range/Units 11:49 RBC (4.30-5.90) m/uL Hgb (13.0-17.5) gm/dL Hct (39.0-53.0) % MCHC (31.0-37.0) g/dL RDW (11.5-15.5) % Plt Count (150-450) k/uL ABG Total CO2 (19-24) mmol/L ABG O2 Saturation (94-97) % Carbon Dioxide (22-30) mmol/L BUN (9-20) mg/dL Creatinine (0.66-1.25) mg/dL Glucose (74-99) mg/dL POC Glucose (mg/dL) 234 H (75-99) mg/dL Calcium (8.4-10.2) mg/dL Phosphorus (2.5-4.5) mg/dL Microbiology - Last 24 Hours (Table) 06/05/16 21:30 Blood Culture - Preliminary Blood No Growth after 24 hours 06/05/16 18:00 Urine Culture - Final Urine,Catheterized 06/06/16 12:25 Sputum Culture - Preliminary Sputum 06/05/16 13:12 Blood Culture - Preliminary Blood No Growth after 24 hours Assessment and Plan Plan: Acute hypoxic respiratory failure requiring mechanical ventilation Diffuse bilateral pulmonary edema, likely acute pulmonary edema with chronic interstitial lung disease Hypotension, possibly cardiogenic vs hypovolemic shock Acute exacerbation of CHF, diastolic, ejection fraction 45-50% Acute kidney injury Atrial fibrillation with rapid ventricular rate, status post ablation Pulmonary edema on CXR Small to trace pericardial effusion Hypoglycemic reaction, Hx DM2 Coronary artery disease, status post CABG and aortic valve replacement Hx hypertension Dyslipidemia COPD Pulmonary fibrosis with prior exposure to asbestos Anemia, macrocytic Thrombocytopenia O2 to maintain saturation greater than or equal to 88% Diuresis per nephro Off levophed ABX: Continue Zosyn Schedule duo nebs Solu-Medrol, continue, will need termite helper taper I's and O's and daily weights GI and DVT prophylaxis: Eliquis, Protonix Cardiology recommendations Consult PT and OT, consult Dr. Villagomez Sputum, blood, urine cultures, no growth to date Nephrology consult, ID consult Overall prognosis is poor Will continue to monitor in the ICU
--- NOTE | 2016-06-07 12:04 | P.PN ---
Subjective This is a 66-year-old gentleman who is followed by Dr. Chaitanya Parr on an outpatient basis. On 04/22/2016 the patient presented to the emergency department at [facility], with complaints of dyspnea. The patient denied complaints of any chest pain, and nausea. On presentation to the emergency department at [facility], a 12-lead EKG was completed which showed him to have some ST elevation in his inferior leads. Subsequently, this patient was seen and examined by Dr. Scherer from [facility] and the patient was transferred to [facility] for further evaluation and workup. The patient was admitted to the hospital and underwent an urgent cardiac catheterization by Dr. Scherer, which demonstrated the patient to have a totally occluded right coronary artery, 80% stenosis to a circumflex coronary artery, a 90% stenosis to his proximal left anterior descending coronary artery, and a 60 % stenosis to his mid left anterior descending coronary artery. The patient also underwent a 2-D echocardiogram, which demonstrated mild concentric left ventricular hypertrophy, mild mitral regurgitation, mild tricuspid regurgitation , an overall left ventricular systolic function severely impaired with an ejection fraction of 25-30%, [id number] aortic stenosis with mitral aortic regurgitation, and a peak/mean gradient across the aortic valve of 42.44 mmHg and 22.56 mmHg. The above-mentioned studies were reviewed with the patient by Dr. Scherer and by Dr. Hardy and an urgent coronary artery bypass grafting surgery with aortic valve replacement was done using QUEZADA to LAD saphenous venous graft to the diagonal branch, SVG to the obtuse marginal branch , and 7 as well as SVG to the RCA, along with aortic valve bioprosthesis, his hospital course was completed by acute bronchitis with Serratia marcescens as well as tachybradycardia syndrome and eventually he was transferred to [facility] for physical therapy rehabilitation. Patient was readmitted to [facility] on May 18 for atrial flutter with rapid ventricular response and underwent cardioversion on 2015. He was also treated for acute on chronic diastolic heart failure. He was discharged back to [facility] on May 24. Patient stated that he was in fine up until today when he started feeling short of breath and that he was feeling off. He was transferred to [facility] emergency center where he was found to have an elevated heart rate and again in atrial flutter. His blood pressure was low and he received fluid boluses of 1-1/2 L total. Troponins were 0.060, 0.074, 0.075. ProBNP was 5590. Urinalysis was negative. Patient was seen by cardiology with plan to have Dr. Peck evaluate for possible cardiac ablation. Patient is seen at this time in the emergency room as he is waiting for a selective care bed to be made 06/03: He is status post EP study and ablation done on May 31. He was hypotensive following the procedure and was placed on dopamine and transferred to the intensive care unit and consult requested with Dr. Marin. He has subsequently been weaned off dopamine. This morning he has again in atrial fibrillation with heart rate running 116-120. Patient is status post 1 unit packed RBCs given on June 01 for hemoglobin of 8.0. Patient is complaining of a sore throat and thrush noted and started on nystatin. Rivers catheter has remained in place. Urine output has been good. 06/04: He has been transferred to the [facility]. Dr. Scherer added digoxin and amiodaronedrip. Anticoagulation is on hold due to hemoglobin of 9. Repeat hemoglobin today is 9.6. Blood sugars are again elevated running between 171 and 241. No changes in insulin due to his previous hypoglycemic episodes. Patient was started on Solu-Medrol yesterday. This morning, patient has increasing shortness of breath and his pulse ox was down to 72. Patient is now on a nonrebreather. Patient has been removing his nasal cannula. 06/05: Patient's respiratory status worsened over the night. He was placed on BiPAP and then ended up being intubated and placed on mechanical ventilation with tidal volume 450, FiO2 60% and PEEP of 5. Patient feeling was also quite confused. He is now on norepinephrine and amiodarone drips. Family is requesting the patient be transferred to another facility. Case management has met with family. Await final decision. 06/06: Family have decided against transfer to another facility. Patient has now been extubated. He is off vasopressors. 06/07: Nystatin and it for thrush. Patient denies any complaints this morning. He states he slept okay during the night. Patient is noted to have increased weakness. He is in A. fib/flutter today. Lasix [address] daily. Metoprolol 50 mg twice daily. Blood sugars have been running high due to Solu- Medrol for which she will be resumed back on Lantus at a lower dose of [address] Villagomez has evaluated patient for inpatient rehab. Objective - Vital Signs Vital signs: Vital Signs Temp 97.7 F 06/07/16 04:00 Pulse 68 06/07/16 08:00 Resp 29 H 06/07/16 07:00 BP 80/53 06/04/16 21:42 Pulse Ox 90 L 06/07/16 07:00 Intake & Output 06/06/16 06/07/16 06/07/16 18:59 06:59 18:59 Intake Total 801.655 252.5 40 Output Total 1405 1341 120 Balance -603.345 -1088.5 -80 Weight 82.6 kg Intake: IV 240 240 40 Sodium Chloride 0.9% 1, 240 240 40 000 ml @ 20 mls/hr IV . Q24H RONEL Rx#:[id number] Intake, IV Titration 491.655 12.5 Amount Norepinephrine 4 mg In 158.75 Sodium Chloride 0.9% 250 ml @ Titrate IV .Q0M RONEL Rx#:[id number] Piperacillin-Tazobactam 3 62.5 12.5 .375 gm In Dextrose/Water 1 50ml.bag @ 12.5 mls/hr IVPB Q8H RONEL Rx#: [id number] Propofol 500 mg In Empty 20.405 Bag 1 bag @ Titrate IV . Q0M RONEL Rx#:[id number] Vancomycin 1,250 mg In 250 Sodium Chloride 0.9% 250 ml @ 125 mls/hr IVPB Q16H RONEL Rx#:[id number] Tube Feeding 70 Output: Urine 1405 1341 120 Other: Voiding Method Indwelling Catheter Indwelling Catheter ABP, PAP, CO, CI - Last Documented Arterial Blood Pressure 140/47 - Exam Gen: This is a 66-year-old male. He is in ICU bed and appears to be in no acute distress. HEENT: Head is atraumatic, normocephalic. Pupils equal, round. Sclerae is anicteric. NECK: Supple. No JVD. No lymphadenopathy. No thyromegaly. LUNGS: Diminished bilateral bases with coarse breath sounds. No intercostal retractions. HEART: Regular rate and rhythm. Systolic murmur. ABDOMEN: Soft. Bowel sounds are present. No masses. No tenderness. EXTREMITIES: 1+ pedal edema bilaterally slightly worse on the right. Significant ecchymosis to the right leg. No calf tenderness. NEUROLOGICAL: Patient is awake alert and oriented 3. - Labs CBC & Chem 7: 06/07/16 03:30 06/07/16 03:30 Labs: Abnormal Lab Results - Last 24 Hours (Table) 06/06/16 06/06/16 06/06/16 Range/Units 11:55 12:03 17:03 RBC (4.30-5.90) m/uL Hgb (13.0-17.5) gm/dL Hct (39.0-53.0) % MCHC (31.0-37.0) g/dL RDW (11.5-15.5) % Plt Count (150-450) k/uL ABG Total CO2 26 H (19-24) mmol/L ABG O2 Saturation 98.0 H (94-97) % Carbon Dioxide (22-30) mmol/L BUN (9-20) mg/dL Creatinine (0.66-1.25) mg/dL Glucose (74-99) mg/dL POC Glucose (mg/dL) 241 H 204 H (75-99) mg/dL Calcium (8.4-10.2) mg/dL Phosphorus (2.5-4.5) mg/dL 06/06/16 06/07/16 06/07/16 Range/Units 21:11 03:30 03:30 RBC 2.68 L (4.30-5.90) m/uL Hgb 7.9 L (13.0-17.5) gm/dL Hct 26.0 L (39.0-53.0) % MCHC 30.3 L (31.0-37.0) g/dL RDW 16.8 H (11.5-15.5) % Plt Count 74 L (150-450) k/uL ABG Total CO2 (19-24) mmol/L ABG O2 Saturation (94-97) % Carbon Dioxide 32 H (22-30) mmol/L BUN 52 H (9-20) mg/dL Creatinine 1.40 H (0.66-1.25) mg/dL Glucose 171 H (74-99) mg/dL POC Glucose (mg/dL) 173 H (75-99) mg/dL Calcium 7.9 L (8.4-10.2) mg/dL Phosphorus 4.8 H (2.5-4.5) mg/dL 06/07/16 Range/Units 07:57 RBC (4.30-5.90) m/uL Hgb (13.0-17.5) gm/dL Hct (39.0-53.0) % MCHC (31.0-37.0) g/dL RDW (11.5-15.5) % Plt Count (150-450) k/uL ABG Total CO2 (19-24) mmol/L ABG O2 Saturation (94-97) % Carbon Dioxide (22-30) mmol/L BUN (9-20) mg/dL Creatinine (0.66-1.25) mg/dL Glucose (74-99) mg/dL POC Glucose (mg/dL) 180 H (75-99) mg/dL Calcium (8.4-10.2) mg/dL Phosphorus (2.5-4.5) mg/dL Microbiology - Last 24 Hours (Table) 06/05/16 21:30 Blood Culture - Preliminary Blood No Growth after 24 hours 06/05/16 18:00 Urine Culture - Final Urine,Catheterized 06/06/16 12:25 Sputum Culture - Preliminary Sputum 06/05/16 13:12 Blood Culture - Preliminary Blood No Growth after 24 hours Assessment and Plan Plan: 1. Atrial flutter with rapid ventricular response with previous history of electrical cardioversions status post ablation on May 31. Patient has been seen by cardiology. Continue amiodarone and eliquis. He did receive bolus dose of Cardizem but due to hypotension, Cardizem drip was not started. 2. Coronary artery disease status post coronary artery bypass graft with QUEZADA to LAD, SVG to the diagonal branch, SVG to obtuse marginal branch, SVG to RCA with severe LV dysfunction. 3. Moderate to severe aortic valve stenosis status post bioprosthetic aortic valve replacement. Stable at this point in time. 4. Hypertension. Currently hypotensive. Patient is normally on Coreg 3.125 mg every 12 hours, Lasix 20 mg daily, lisinopril 2.5 mg daily. Patient has been hypotensive and parameters in place for his antihypertensive medications. 5. Hyperlipidemia. Continue Lipitor. 6. Medical debility. Return to [facility] with the patient is more stable. 7. COPD with acute exacerbation. Continue DuoNeb treatments 4 times daily, Pulmicort 0.5 mg twice daily, Solu-Medrol 60 mg IV every 6 hours. 8. 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 9. Chronic diastolic heart failure, last ELIZABETH performed 05/09/2016 ejection fraction 45-50%. Continue Lasix 20 mg daily with potassium supplement. 7. Acute exacerbation of diastolic heart failure. Patient was started on Lasix 40 mg IV every 12 hours. 8. Diabetes mellitus type 2, uncontrolled with hypoglycemia. Patient is on D5W. Hypoglycemic medications are on hold. 9. Postprocedural hypotension, possibly due to cardiogenic or hypovolemic shock. Currently not requiring vasopressors. 10. DVT prophylaxis. Eliquis. 11. GI prophylaxis. Continue patient on Protonix 40 mg orally once every day. 12. Thrush. Nystatin started. 13. Acute on chronic hypoxic respiratory failure requiring intubation and mechanical ventilation. Patient is followed by Dr. Marin. CODE STATUS is full code. 14. Anemia of chronic disease requiring 1 unit of packed RBCs. 15. Diffuse bilateral pulmonary edema, possible diffuse pneumonia on chest x- ray. Patient was started on Zosyn by pulmonary medicine. Discharge plan: Return to [facility]. Impression and plan of care have been directed as dictated by the signing physician. Diane Young nurse practitioner acting as scribe for signing physician. Time with Patient: Greater than 30
--- NOTE | 2016-06-07 12:28 | P.PN ---
Subjective Principal diagnosis: This is a 66-year-old male who is seen because of acute kidney injury after he became hypotensive and his lungs showed possible non-cardiogenic pulmonary edema with extensive chest x-ray infiltrate. He was intubated. Yesterday his creatinine went up to 1.3 from 0.8. This morning is up to 1.5. He has made more urine though. He has been stable on 50% FiO2 on the vent. Sedated. He is on small amount of levo fed that is being tapered off. Workup has shown no explanation for his hypotension and worsening of chest x- ray. Blood cultures have been drawn pending results white count is normal there is no evidence of any temperature. Blood pressure is improved in the 120 range but A-line. A repeat troponin yesterday was 0.197. His chest x-ray shows minimal improvement but still has extensive I lateral infiltrates. His BNP is high at 24,500 as of yesterday He had emergency cardiac surgery on 04/26/2016 with quadruple bypass as well as aortic valve replacement with a bioprosthetic valve. At the time he had presented with an acute GA. He was discharged and readmitted on 05/18/2016 with atrial flutter flutter and underwent cardioversion on 05/21/2016. He was discharged and readmitted when he came in with shortness of breath 05/30/2016. And was readmitted. He is known with COPD diabetes hypertension hyperlipidemia prostatism and peripheral vascular disease supposedly. Is also known with pulmonary fibrosis. An echocardiogram done on this admission showed slightly low ejection fraction of about 40%. The valve is unremarkable except it is commented that he has moderate aortic stenosis although he had a pericardial valve replacement recently on 04/26/2016. There is small pericardial effusion. This 66-year-old male seen in consultation because of acute kidney injury from hypotension and noncardiogenic pulmonary edema is responding with improvement in his creatinine. Urine output is satisfactory on 40 mg of Lasix IV daily. While signs are stable. Is awake alert oriented. He is on nasal cannula oxygen. He has started to eat with clear liquids this morning. Has mild cough no shortness of breath. No nausea vomiting diarrhea abdominal pain no fever chills. His workup has included negative blood cultures, no white count or temperature. Troponins were slightly high as 0.197. BNP was 24,502 days ago. A chest x- ray showing improvement. His past history significant as follows He had emergency cardiac surgery on 04/26/2016 with quadruple bypass as well as aortic valve replacement with a bioprosthetic valve. At the time he had presented with an acute GA. He was discharged and readmitted on 05/18/2016 with atrial flutter flutter and underwent cardioversion on 05/21/2016. He was discharged and readmitted when he came in with shortness of breath 05/30/2016. And was readmitted. He is known with COPD diabetes hypertension hyperlipidemia prostatism and peripheral vascular disease supposedly. Is also known with pulmonary fibrosis. An echocardiogram done on this admission showed slightly low ejection fraction of about 40%. The valve is unremarkable except it is commented that he has moderate aortic stenosis although he had a pericardial valve replacement recently on 04/26/2016. There is small pericardial effusion. Objective - Vital Signs Vital signs: Vital Signs Temp 98.9 F 06/07/16 08:00 Pulse 72 06/07/16 11:26 Resp 23 06/07/16 11:00 BP 80/53 06/04/16 21:42 Pulse Ox 94 L 06/07/16 11:00 Intake & Output 06/06/16 06/07/16 06/07/16 18:59 06:59 18:59 Intake Total 801.655 252.5 100 Output Total 1405 1341 745 Balance -603.345 -1088.5 -645 Weight 82.6 kg Intake: IV 240 240 100 Sodium Chloride 0.9% 1, 240 240 100 000 ml @ 20 mls/hr IV . Q24H RONEL Rx#:[id number] Intake, IV Titration 491.655 12.5 Amount Norepinephrine 4 mg In 158.75 Sodium Chloride 0.9% 250 ml @ Titrate IV .Q0M RONEL Rx#:[id number] Piperacillin-Tazobactam 3 62.5 12.5 .375 gm In Dextrose/Water 1 50ml.bag @ 12.5 mls/hr IVPB Q8H RONEL Rx#: [id number] Propofol 500 mg In Empty 20.405 Bag 1 bag @ Titrate IV . Q0M RONEL Rx#:[id number] Vancomycin 1,250 mg In 250 Sodium Chloride 0.9% 250 ml @ 125 mls/hr IVPB Q16H RONEL Rx#:[id number] Tube Feeding 70 Output: Urine 1405 1341 745 Other: Voiding Method Indwelling Catheter Indwelling Catheter Indwelling Catheter ABP, PAP, CO, CI - Last Documented Arterial Blood Pressure 128/44 On examination is awake alert oriented. He is in normal sinus rhythm. HEENT exam no JVP neck is supple no facial asymmetry Lungs are clear to auscultation percussion with an occasional coarse crackle. No dullness percussion. Heart sounds are unremarkable for any murmur rub gallop normal sinus rhythm. Abdomen soft nontender. No masses organomegaly ascites extremity exam reveals no edema. Neurologically awake alert oriented but generalized weakness. No focal motor deficit - Labs CBC & Chem 7: 06/07/16 03:30 06/07/16 03:30 Labs: Abnormal Lab Results - Last 24 Hours (Table) 06/06/16 06/06/16 06/06/16 Range/Units 12:03 17:03 21:11 RBC (4.30-5.90) m/uL Hgb (13.0-17.5) gm/dL Hct (39.0-53.0) % MCHC (31.0-37.0) g/dL RDW (11.5-15.5) % Plt Count (150-450) k/uL ABG Total CO2 26 H (19-24) mmol/L ABG O2 Saturation 98.0 H (94-97) % Carbon Dioxide (22-30) mmol/L BUN (9-20) mg/dL Creatinine (0.66-1.25) mg/dL Glucose (74-99) mg/dL POC Glucose (mg/dL) 204 H 173 H (75-99) mg/dL Calcium (8.4-10.2) mg/dL Phosphorus (2.5-4.5) mg/dL 06/07/16 06/07/16 06/07/16 Range/Units 03:30 03:30 07:57 RBC 2.68 L (4.30-5.90) m/uL Hgb 7.9 L (13.0-17.5) gm/dL Hct 26.0 L (39.0-53.0) % MCHC 30.3 L (31.0-37.0) g/dL RDW 16.8 H (11.5-15.5) % Plt Count 74 L (150-450) k/uL ABG Total CO2 (19-24) mmol/L ABG O2 Saturation (94-97) % Carbon Dioxide 32 H (22-30) mmol/L BUN 52 H (9-20) mg/dL Creatinine 1.40 H (0.66-1.25) mg/dL Glucose 171 H (74-99) mg/dL POC Glucose (mg/dL) 180 H (75-99) mg/dL Calcium 7.9 L (8.4-10.2) mg/dL Phosphorus 4.8 H (2.5-4.5) mg/dL 06/07/16 Range/Units 11:49 RBC (4.30-5.90) m/uL Hgb (13.0-17.5) gm/dL Hct (39.0-53.0) % MCHC (31.0-37.0) g/dL RDW (11.5-15.5) % Plt Count (150-450) k/uL ABG Total CO2 (19-24) mmol/L ABG O2 Saturation (94-97) % Carbon Dioxide (22-30) mmol/L BUN (9-20) mg/dL Creatinine (0.66-1.25) mg/dL Glucose (74-99) mg/dL POC Glucose (mg/dL) 234 H (75-99) mg/dL Calcium (8.4-10.2) mg/dL Phosphorus (2.5-4.5) mg/dL Microbiology - Last 24 Hours (Table) 06/05/16 21:30 Blood Culture - Preliminary Blood No Growth after 24 hours 06/05/16 18:00 Urine Culture - Final Urine,Catheterized 06/06/16 12:25 Sputum Culture - Preliminary Sputum 06/05/16 13:12 Blood Culture - Preliminary Blood No Growth after 24 hours Assessment and Plan Plan: Impression. 1. Acute kidney injury secondary to prerenal from low blood pressure. Currently improving with urine output being 2746 mL per minute, creatinine improved to 1.4 from 1.5. Bicarb is slightly high at 32. Acute kidney injury is recovering 2. Pulmonary edema possible noncardiogenic. Etiology not clear . echocardiogram is not suggestive of any pericardial tamponade not, significant valve dysfunction. Clinically and chest x-ray improving 3. Vent dependent respiratory failure intubated 06/04/2016, on 50% FiO2. Extubated and on nasal cannula 06/07/2015 4. History of pulmonary fibrosis but the x-rays significantly worsened since his admission, starting to improve as of 06/07/2015 5. Cause of hypotension, rule out sepsis. Blood cultures are so far negative. Recommendation. 1. Agree with treatment with antibiotics for sepsis but would avoid vancomycin and other nephrotoxic medication. Lasix 20 mg every 12 instead for evenly having urine output 3. Monitor labs
[2016-06-07] MEDS: NYSTATIN 100,000 UNIT/ML SUSP 500,000 UNIT/5 ML CUP PO SCH ×4 (12:37→22:28)
[2016-06-07] MEDS: methylPREDNISolone SOD SUCCI 40 MG/ML 1 ML VIAL IV SCH ×2 (12:38→17:31)
[2016-06-07 16:49] LABS: Glucose,Whole Blood 253 mg/dL (75-99)
[2016-06-07] MEDS: TAMSULOSIN 0.4 MG CAP.ER.24H PO SCH (17:31)
[2016-06-07 20:00] LABS: Glucose,Whole Blood 341 mg/dL (75-99)
[2016-06-07] MEDS: SODIUM CHLORIDE 0.9% 1,000 ML IV SCH (20:08)
[2016-06-07] MEDS: QUEtiapine 25 MG TAB PO SCH (20:09)
[2016-06-07] MEDS: ATORVASTATIN 40 MG TAB PO SCH (20:09)
[2016-06-07] MEDS: FUROSEMIDE 10 MG/ML 2 ML VIAL IV SCH (20:10)
[2016-06-07] MEDS: SENNOSIDES 8.6 MG TAB PO SCH (20:10)
[2016-06-07] MEDS ORDERED: METOPROLOL TARTRATE 50 MG TAB PO SCH (21:00)
[2016-06-07] MEDS ORDERED: INSULIN GLARGINE 100 UNIT/ML 10 ML VIAL SQ SCH (21:00)
[2016-06-08 01:45] VITALS: BP 116/44
[2016-06-08] MEDS: PIPERACILLIN-TAZOBACTAM 3.375 GM in DEXTROSE/WATER 1 50ML.BAG IVPB SCH ×3 (02:02→16:34)
[2016-06-08] MEDS: methylPREDNISolone SOD SUCCI 40 MG/ML 1 ML VIAL IV SCH ×4 (02:02→17:21)
[2016-06-08 04:55] LABS: Anisocytosis Slight; CH 30.4; CHCM 31.4; HCT 23.4 % (39.0-53.0); HDW 3.62; HGB 7.2 gm/dL (13.0-17.5); Hypochromasia Moderate; MCH 29.9 pg (25.0-35.0); MCHC 30.8 g/dL (31.0-37.0); MCV 97.4 fL (80.0-100.0); Macrocytosis Slight; Mean Platelet Volume 8.1; Poikilocytosis Slight; RBC 2.41 m/uL (4.30-5.90); RDW 16.8 % (11.5-15.5); WBC 7.4 k/uL (3.8-10.6)
[2016-06-08 05:17] LABS: Anion Gap 9 mmol/L; Blood Urea Nitrogen 53 mg/dL (9-20); Calcium 7.8 mg/dL (8.4-10.2); Carbon Dioxide 32 mmol/L (22-30); Chloride 101 mmol/L (98-107); Glucose 138 mg/dL (74-99); Magnesium 2.2 mg/dL (1.6-2.3); Non-African American GFR(MDRD) >60 (>60 ml/min/1.73 sqM); Phosphorous 3.2 mg/dL (2.5-4.5); Potassium 3.2 mmol/L (3.5-5.1); Sodium 142 mmol/L (137-145)
--- NOTE | 2016-06-08 06:09 | PN ---
DATE OF SERVICE: 06/07/2016 Reason for followup is possible pneumonia. INTERVAL HISTORY: The patient is afebrile. He has been extubated. He did have some cough, bringing up some whitish to yellow sputum. No hemoptysis. No chest pain or abdominal pain or any diarrhea. On examination, blood pressure is 127/55 with a pulse of 71, temperature 97.7. He is 92% on 5 L nasal cannula. General description is an elderly male lying in bed in no distress. RESPIRATORY SYSTEM: Unlabored breathing. Some decreased breath sounds at the bases. No wheeze. HEART: S1, S2. Regular rate and rhythm. ABDOMEN: Soft, no tenderness. LABS: Hemoglobin is 7.9, white count is 7.2 with a BUN of 52, creatinine 1.40. DIAGNOSTIC IMPRESSION AND PLAN: The patient in acute respiratory failure requiring mechanical ventilation; however, the patient has been successfully extubated. The patient's sputum is now showing gram negative though the blood culture has been negative. The patient is currently covered with Zosyn and that will be continued and should stay on the antibiotic awaiting culture report. Continue supportive care. Family present at bedside. Their questions were answered. SEEMA
[2016-06-08] MEDS: IPRATROPIUM-ALBUTEROL 3 ML NEB INHALATION SCH ×4 (07:57→19:07)
[2016-06-08] MEDS: BUDESONIDE 0.5 MG/2 ML NEBU INHALATION SCH ×2 (07:57→19:07)
[2016-06-08 08:26] LABS: Glucose,Whole Blood 253 mg/dL (75-99)
--- NOTE | 2016-06-08 08:32 | XR ---
EXAMINATION TYPE: XR chest 1V portable DATE OF EXAM: 06/08/2016 6:49 AM COMPARISON: Prior chest x-ray 07 June 2016 HISTORY: Shortness of breath TECHNIQUE: Single frontal view of the chest is obtained. FINDINGS: Patient is post median sternotomy, the heart is markedly enlarged. Interstitium remains in creased. No evident pneumothorax or pleural effusion. Suspect there is mixed airspace disease. IMPRESSION: Correlate for congestive heart failure. Pneumonia not excluded.
[2016-06-08] MEDS ORDERED: FUROSEMIDE 10 MG/ML 2 ML VIAL IV ONE (09:07)
--- NOTE | 2016-06-08 09:07 | P.PN ---
Subjective Principal diagnosis: This is a 66-year-old male,who had emergency cardiac surgery on 04/26/2016 with quadruple bypass as well as aortic valve replacement with a bioprosthetic valve. At the time he had presented with an acute NV. He was discharged and readmitted on 05/18/2016 with atrial flutter flutter and underwent cardioversion on 05/21/2016. He was discharged and readmitted when he came in with shortness of breath 05/30/2016. And was readmitted. He was seen because of acute kidney injury after he became hypotensive and his lungs showed possible non-cardiogenic pulmonary edema with extensive chest x- ray infiltrate. He was intubated. He is known in the past with pulmonary fibrosis but the x-ray worsened significantly. He needed intubation and was extubated yesterday 06/07/2015 and has remained stable since then. He has been slowly diuresed. His creatinine has started to improve his urine output is picked up. He made 2400 mL of urine and his creatinine down to 1.1. He is on Lasix 20 mg IV every 12. His chest x-ray though continues to show significant bilateral extensive infiltrates. He is starting to cough little bit with whitish expectoration. He is on nasal cannula oxygen. Workup has shown no explanation for his hypotension and worsening of chest x- ray. Blood cultures have been negative, white count is normal, he is afebrile. No evidence of acute NV. BNP was high at 24,500. He is known with COPD diabetes hypertension hyperlipidemia prostatism and peripheral vascular disease supposedly. Is also known with pulmonary fibrosis. An echocardiogram done on this admission showed slightly low ejection fraction of about 40%. The valve is unremarkable except it is commented that he has moderate aortic stenosis although he had a pericardial valve replacement recently on 04/26/2016. There is small pericardial effusion. This 66-year-old male seen in consultation because of acute kidney injury from hypotension and noncardiogenic pulmonary edema is responding with improvement in his creatinine. Urine output is satisfactory on 40 mg of Lasix IV daily. While signs are stable. Is awake alert oriented. He is on nasal cannula oxygen. He has started to eat with clear liquids this morning. Has mild cough no shortness of breath. No nausea vomiting diarrhea abdominal pain no fever chills. His workup has included negative blood cultures, no white count or temperature. Troponins were slightly high as 0.197. BNP was 24,502 days ago. A chest x- ray showing improvement. His past history significant as follows He had emergency cardiac surgery on 04/26/2016 with quadruple bypass as well as aortic valve replacement with a bioprosthetic valve. At the time he had presented with an acute NV. He was discharged and readmitted on 05/18/2016 with atrial flutter flutter and underwent cardioversion on 05/21/2016. He was discharged and readmitted when he came in with shortness of breath 05/30/2016. And was readmitted. He is known with COPD diabetes hypertension hyperlipidemia prostatism and peripheral vascular disease supposedly. Is also known with pulmonary fibrosis. An echocardiogram done on this admission showed slightly low ejection fraction of about 40%. The valve is unremarkable except it is commented that he has moderate aortic stenosis although he had a pericardial valve replacement recently on 04/26/2016. There is small pericardial effusion. Objective - Vital Signs Vital signs: Vital Signs Temp 98.1 F 06/08/16 04:00 Pulse 77 06/08/16 08:20 Resp 18 06/08/16 07:00 BP 116/44 06/08/16 00:00 Pulse Ox 92 L 06/08/16 08:39 Intake & Output 06/07/16 06/08/16 06/08/16 18:59 06:59 18:59 Intake Total 265.0 240 20 Output Total 1590 1155 45 Balance -1325.0 -915 -25 Weight 82.6 kg Intake: IV 240 240 20 Sodium Chloride 0.9% 1, 240 240 20 000 ml @ 20 mls/hr IV . Q24H RONEL Rx#:[id number] Intake, IV Titration 25.0 Amount Piperacillin-Tazobactam 3 25.0 .375 gm In Dextrose/Water 1 50ml.bag @ 12.5 mls/hr IVPB Q8H RONEL Rx#: [id number] Output: Urine 1590 1155 45 Other: Voiding Method Indwelling Catheter Indwelling Catheter ABP, PAP, CO, CI - Last Documented 141/54 On exam she is currently on nasal cannula oxygen comfortable. HEENT exam no JVP neck is supple no facial asymmetry Lungs are significant for bilateral occasional end expiratory wheeze good air entry bilaterally no crackles were heard although the chest x-ray looks terrible. Heart sounds are unremarkable no murmur rub gallop. Abdomen is soft nontender no organomegaly ascites masses Extremity exam reveals trace edema Neurologically awake alert oriented. No focal motor deficit. - Labs CBC & Chem 7: 06/08/16 04:34 06/08/16 04:34 Labs: Abnormal Lab Results - Last 24 Hours (Table) 06/07/16 06/07/16 06/07/16 Range/Units 11:49 16:47 19:58 RBC (4.30-5.90) m/uL Hgb (13.0-17.5) gm/dL Hct (39.0-53.0) % MCHC (31.0-37.0) g/dL RDW (11.5-15.5) % Plt Count (150-450) k/uL Potassium (3.5-5.1) mmol/L Carbon Dioxide (22-30) mmol/L BUN (9-20) mg/dL Glucose (74-99) mg/dL POC Glucose (mg/dL) 234 H 253 H 341 H (75-99) mg/dL Calcium (8.4-10.2) mg/dL 06/08/16 06/08/16 06/08/16 Range/Units 04:34 04:34 08:24 RBC 2.41 L (4.30-5.90) m/uL Hgb 7.2 L (13.0-17.5) gm/dL Hct 23.4 L (39.0-53.0) % MCHC 30.8 L (31.0-37.0) g/dL RDW 16.8 H (11.5-15.5) % Plt Count 61 L (150-450) k/uL Potassium 3.2 L (3.5-5.1) mmol/L Carbon Dioxide 32 H (22-30) mmol/L BUN 53 H (9-20) mg/dL Glucose 138 H (74-99) mg/dL POC Glucose (mg/dL) 253 H (75-99) mg/dL Calcium 7.8 L (8.4-10.2) mg/dL Microbiology - Last 24 Hours (Table) 06/05/16 21:30 Blood Culture - Preliminary Blood No Growth after 48 hours 06/05/16 13:12 Blood Culture - Preliminary Blood No Growth after 48 hours 06/06/16 12:25 Gram Stain - Preliminary Sputum Sputum Culture - Preliminary Gram Neg Bacilli Assessment and Plan Plan: Impression. 1. Acute kidney injury secondary to prerenal from low blood pressure. Currently improving with creatinine down to 1 and urine output is 2745. On Lasix 20 mg IV every 12. Chest x-rays still showing significant pulmonary edema possibly noncardiogenic. 2. Pulmonary edema possible noncardiogenic. Etiology not clear . echocardiogram is not suggestive of any pericardial tamponade not, significant valve dysfunction. Clinically better but again today's x-ray looks somewhat worse may be technically difference. 3. Vent dependent respiratory failure intubated 06/04/2016, on 50% FiO2. Extubated and on nasal cannula 06/07/2015. Stable 4. History of pulmonary fibrosis but the x-rays significantly worsened since his admission, 5. Cause of hypotension, rule out sepsis. Blood cultures are so far negative. Recommendation. 1. Agree with treatment with antibiotics for sepsis but would avoid vancomycin and other nephrotoxic medication. 2. Continue Lasix 20 mg every 12. We will give him extra dose of Lasix 20 mg today 3. Monitor labs
[2016-06-08 09:09] VITALS: BMI 26.9
[2016-06-08] MEDS: INSULIN LISPRO (humaLOG) 300 UNIT/3 ML VIAL SQ SCH ×3 (09:13→17:21)
[2016-06-08] MEDS: AMIODARONE 200 MG TAB PO SCH (09:16)
[2016-06-08] MEDS: DIGOXIN 125 MCG TAB PO SCH (09:17)
[2016-06-08] MEDS: ASPIRIN 81 MG CHEW PO SCH (09:17)
[2016-06-08] MEDS: FUROSEMIDE 10 MG/ML 2 ML VIAL IV SCH (09:17)
[2016-06-08] MEDS: POTASSIUM CHLORIDE ER 20 MEQ TAB.ER PO SCH ×3 (09:18→12:04)
[2016-06-08] MEDS: PANTOPRAZOLE 40 MG/10 ML VIAL IVP SCH (09:18)
[2016-06-08] MEDS: NYSTATIN 100,000 UNIT/ML SUSP 500,000 UNIT/5 ML CUP PO SCH ×3 (09:18→17:24)
[2016-06-08] MEDS: guaiFENesin 600 MG TABLET.ER PO SCH (09:18)
[2016-06-08] MEDS: METOPROLOL TARTRATE 25 MG TAB PO SCH ×2 (09:19→16:29)
--- NOTE | 2016-06-08 09:31 | P.PN ---
Subjective Principal diagnosis: A. fib/a flutter This is a pleasant 66-year-old gentleman with a known CAD and status post CABG along with aortic valve replacement who was admitted to the hospital this time with atrial flutter and rapid ventricular response. He underwent an atrial flutter ablation few days ago. He was doing good until this yesterday when he went back into an A. fib with RVR and converted back into normal sinus mechanism. The patient was transferred to the selective unit yesterday but after he was transferred he developed an acute respiratory distress and he was transferred back to the intensive care unit where he was intubated and currently he is on ventilator. I'll follow-up with the patient today, he is feeling better internal shortness of breath but unfortunately he is requiring more oxygen. The chest x-ray from today seems to be wet and showing congestive heart failure and clearly its worse than yesterday. He continues to be anemic with a hemoglobin around 7.2. At this time, I am going to increase the Lasix to 40 mg IV twice a day. Obtain a BNP. Obtain an echocardiogram. Objective - Vital Signs Vital signs: Vital Signs Temp 98.1 F 06/08/16 04:00 Pulse 77 06/08/16 08:20 Resp 18 06/08/16 07:00 BP 116/44 06/08/16 00:00 Pulse Ox 92 L 06/08/16 08:39 Intake & Output 06/07/16 06/08/16 06/08/16 18:59 06:59 18:59 Intake Total 265.0 240 20 Output Total 1590 1155 45 Balance -1325.0 -915 -25 Weight 82.6 kg 82.6 kg Intake: IV 240 240 20 Sodium Chloride 0.9% 1, 240 240 20 000 ml @ 20 mls/hr IV . Q24H RONEL Rx#:[id number] Intake, IV Titration 25.0 Amount Piperacillin-Tazobactam 3 25.0 .375 gm In Dextrose/Water 1 50ml.bag @ 12.5 mls/hr IVPB Q8H RONEL Rx#: [id number] Output: Urine 1590 1155 45 Other: Voiding Method Indwelling Catheter Indwelling Catheter ABP, PAP, CO, CI - Last Documented Arterial Blood Pressure 141/54 - Constitutional General appearance: Present: no acute distress - Respiratory Respiratory: bilateral: rales - Cardiovascular Rhythm: regular Heart sounds: normal: S1, S2 - Labs CBC & Chem 7: 06/08/16 04:34 06/08/16 04:34 Labs: Abnormal Lab Results - Last 24 Hours (Table) 06/07/16 06/07/16 06/07/16 Range/Units 11:49 16:47 19:58 RBC (4.30-5.90) m/uL Hgb (13.0-17.5) gm/dL Hct (39.0-53.0) % MCHC (31.0-37.0) g/dL RDW (11.5-15.5) % Plt Count (150-450) k/uL Potassium (3.5-5.1) mmol/L Carbon Dioxide (22-30) mmol/L BUN (9-20) mg/dL Glucose (74-99) mg/dL POC Glucose (mg/dL) 234 H 253 H 341 H (75-99) mg/dL Calcium (8.4-10.2) mg/dL 06/08/16 06/08/16 06/08/16 Range/Units 04:34 04:34 08:24 RBC 2.41 L (4.30-5.90) m/uL Hgb 7.2 L (13.0-17.5) gm/dL Hct 23.4 L (39.0-53.0) % MCHC 30.8 L (31.0-37.0) g/dL RDW 16.8 H (11.5-15.5) % Plt Count 61 L (150-450) k/uL Potassium 3.2 L (3.5-5.1) mmol/L Carbon Dioxide 32 H (22-30) mmol/L BUN 53 H (9-20) mg/dL Glucose 138 H (74-99) mg/dL POC Glucose (mg/dL) 253 H (75-99) mg/dL Calcium 7.8 L (8.4-10.2) mg/dL Microbiology - Last 24 Hours (Table) 06/06/16 12:25 Gram Stain - Final Sputum Sputum Culture - Final Serratia marcescens 06/05/16 21:30 Blood Culture - Preliminary Blood No Growth after 48 hours 06/05/16 13:12 Blood Culture - Preliminary Blood No Growth after 48 hours Assessment and Plan Plan: Assessment #1 acute respiratory failure #2 paroxysmal atrial fibrillation #3 status post CABG and AVR #4 anemia seems to be stable #5 multiple comorbid conditions Plan #1 increase the dose of Lasix to 40 mg IV twice a day #2 obtain a BNP #3 obtain an echocardiogram #4 continue following up with him
[2016-06-08 09:45] LABS: ABG Base Excess 5.7 mmol/L; ABG HCO3 29 mmol/L (21-25); ABG PCO2 38 mmHg (35-45); ABG PO2 65 mmHg (83-108); ABG TCO2 30 mmol/L (19-24)
--- NOTE | 2016-06-08 11:44 | ECHOF ---
Referral Reason:chf MEASUREMENTS -------- HEIGHT: 175.3 cm WEIGHT: 82.5 kg BP: 160/56 IVSd: 1.2 cm (0.6 - 1.1) LVIDd: 4.9 cm (3.9 - 5.3) LVPWd: 1.6 cm (0.6 - 1.1) IVSs: 1.2 cm LVIDs: 3.7 cm LVPWs: 1.5 cm LA Diam: 3.8 cm (2.7 - 3.8) MV E Chivo: 0.82 m/s MV DecT: 240 ms MV A Chivo: 0.98 m/s MV E/A Ratio: 0.84 AV maxP.15 mmHg AV meanP.02 mmHg RAP: 5.00 mmHg RVSP: 38.76 mmHg FINDINGS -------- Limited study to Assess Aov Replacement done 04/12. There is mild concentric left ventricular hypertrophy. Overall left ventricular systolic function is mild-moderately impaired with, an EF between 40 - 45 %. Anterseptal Hypokinesis Peak/mean gradient across the Aortic Valve is 51.15mmHg / 30.02mmHg. Bioprosthetic Valve. Mild mitral annular calcification present. Mild mitral regurgitation is present. Mild tricuspid regurgitation present. Right ventricular systolic pressure is normal at < 35 mmHg. There is no evidence of pulmonary hypertension. The right ventricular systolic pressure, as measured by Doppler, is 38.76mmHg. There is no pulmonic regurgitation present. The aortic root size is normal. There is no pericardial effusion. CONCLUSIONS -------- 1. Limited study to Assess Aov Replacement done 04/12. 2. Right ventricular systolic pressure is normal at < 35 mmHg. 3. There is no evidence of pulmonary hypertension. 4. The right ventricular systolic pressure, as measured by Doppler, is 38.76mmHg. 5. There is mild concentric left ventricular hypertrophy. 6. Overall left ventricular systolic function is mild-moderately impaired with, an EF between 40 - 45 %. 7. Anterseptal Hypokinesis 8. Peak/mean gradient across the Aortic Valve is 51.15mmHg / 30.02mmHg. 9. Bioprosthetic Valve. 10. Mild mitral annular calcification present. 11. Mild mitral regurgitation is present. 12. Mild tricuspid regurgitation present. BEHAVIOR MANAGEMENT SPECIALIST: Eva Tena RDCS
[2016-06-08] MEDS: FERROUS SULFATE 325 MG TAB PO SCH (12:04)
[2016-06-08] MEDS: MULTIVITAMINS, THERA 1 EACH TAB PO SCH (12:04)
[2016-06-08] MEDS: THIAMINE 100 MG TAB PO SCH ×2 (12:05→16:29)
[2016-06-08 12:07] LABS: Glucose,Whole Blood 333 mg/dL (75-99)
[2016-06-08] MEDS ORDERED: INSULIN LISPRO (humaLOG) 300 UNIT/3 ML VIAL SQ ONE (12:24)
--- NOTE | 2016-06-08 14:39 | P.PN ---
Subjective Principal diagnosis: Respiratory failure Patient seen and examined in the ICU with nursing and family at bedside. Patient states his breathing also little bit worse today. Chest x-ray shows some worsening pulmonary edema. The patient's Lasix was increased to 40 mg twice a day. The family is asking that the patient be transferred to [facility]. Objective - Vital Signs Vital signs: Vital Signs Temp 98.1 F 06/08/16 08:00 Pulse 61 06/08/16 13:00 Resp 25 H 06/08/16 13:00 BP 116/44 06/08/16 00:00 Pulse Ox 93 L 06/08/16 13:00 Intake & Output 06/07/16 06/08/16 06/08/16 18:59 06:59 18:59 Intake Total 265.0 240 170 Output Total 1590 1155 860 Balance -1325.0 -915 -690 Weight 82.6 kg 82.6 kg Intake: IV 240 240 120 Sodium Chloride 0.9% 1, 240 240 120 000 ml @ 20 mls/hr IV . Q24H RONEL Rx#:[id number] Intake, IV Titration 25.0 50 Amount Piperacillin-Tazobactam 3 25.0 50 .375 gm In Dextrose/Water 1 50ml.bag @ 12.5 mls/hr IVPB Q8H RONEL Rx#: [id number] Output: Urine 1590 1155 860 Other: Voiding Method Indwelling Catheter Indwelling Catheter Indwelling Catheter ABP, PAP, CO, CI - Last Documented Arterial Blood Pressure 123/49 - Exam Gen.: Alert and oriented 3, no acute distress Cardiovascular: Irregular rate and rhythm, S1/S2 Lungs: Coarse breath sounds bilaterally Abdomen: Soft nontender nondistended positive bowel sounds Extremities: 1+ pitting edema - Labs CBC & Chem 7: 06/08/16 04:34 06/08/16 04:34 Labs: Abnormal Lab Results - Last 24 Hours (Table) 06/07/16 06/07/16 06/08/16 Range/Units 16:47 19:58 04:34 RBC 2.41 L (4.30-5.90) m/uL Hgb 7.2 L (13.0-17.5) gm/dL Hct 23.4 L (39.0-53.0) % MCHC 30.8 L (31.0-37.0) g/dL RDW 16.8 H (11.5-15.5) % Plt Count 61 L (150-450) k/uL ABG pH (7.35-7.45) ABG pO2 (83-108) mmHg ABG HCO3 (21-25) mmol/L ABG Total CO2 (19-24) mmol/L Potassium (3.5-5.1) mmol/L Carbon Dioxide (22-30) mmol/L BUN (9-20) mg/dL Glucose (74-99) mg/dL POC Glucose (mg/dL) 253 H 341 H (75-99) mg/dL Calcium (8.4-10.2) mg/dL 06/08/16 06/08/16 06/08/16 Range/Units 04:34 08:00 08:24 RBC (4.30-5.90) m/uL Hgb (13.0-17.5) gm/dL Hct (39.0-53.0) % MCHC (31.0-37.0) g/dL RDW (11.5-15.5) % Plt Count (150-450) k/uL ABG pH 7.50 H (7.35-7.45) ABG pO2 65 L (83-108) mmHg ABG HCO3 29 H (21-25) mmol/L ABG Total CO2 30 H (19-24) mmol/L Potassium 3.2 L (3.5-5.1) mmol/L Carbon Dioxide 32 H (22-30) mmol/L BUN 53 H (9-20) mg/dL Glucose 138 H (74-99) mg/dL POC Glucose (mg/dL) 253 H (75-99) mg/dL Calcium 7.8 L (8.4-10.2) mg/dL 06/08/16 Range/Units 12:05 RBC (4.30-5.90) m/uL Hgb (13.0-17.5) gm/dL Hct (39.0-53.0) % MCHC (31.0-37.0) g/dL RDW (11.5-15.5) % Plt Count (150-450) k/uL ABG pH (7.35-7.45) ABG pO2 (83-108) mmHg ABG HCO3 (21-25) mmol/L ABG Total CO2 (19-24) mmol/L Potassium (3.5-5.1) mmol/L Carbon Dioxide (22-30) mmol/L BUN (9-20) mg/dL Glucose (74-99) mg/dL POC Glucose (mg/dL) 333 H (75-99) mg/dL Calcium (8.4-10.2) mg/dL Microbiology - Last 24 Hours (Table) 06/06/16 12:25 Gram Stain - Final Sputum Sputum Culture - Final Serratia marcescens 06/05/16 21:30 Blood Culture - Preliminary Blood No Growth after 48 hours 06/05/16 13:12 Blood Culture - Preliminary Blood No Growth after 48 hours Assessment and Plan Plan: Acute hypoxic respiratory failure, status post mechanical ventilation Diffuse bilateral pulmonary edema, likely acute pulmonary edema with chronic interstitial lung disease Hypotension, possibly cardiogenic vs hypovolemic shock Acute exacerbation of CHF, diastolic, ejection fraction 40-45 percent Acute kidney injury Atrial fibrillation with rapid ventricular rate, status post ablation Pulmonary edema on CXR Small to trace pericardial effusion Hypoglycemic reaction, Hx DM2 Coronary artery disease, status post CABG and aortic valve replacement Hx hypertension Dyslipidemia COPD Pulmonary fibrosis with prior exposure to asbestos Anemia, macrocytic Thrombocytopenia O2 to maintain saturation greater than or equal to 88% Diuresis per nephro Off levophed ABX: Continue Zosyn Schedule duo nebs Solu-Medrol, continue, will need terminal superintendent taper I's and O's and daily weights GI and DVT prophylaxis: Eliquis, Protonix Cardiology recommendations Consult PT and OT, consult Dr. Villagomez Blood, urine cultures, no growth to date Sputum: Serratia, sensitive to Zosyn Nephrology consult, ID consult Overall prognosis is poor Will continue to monitor in the ICU Family is requesting patient be transferred to [facility]
[2016-06-08 16:20] VITALS: TEMP 97.8
[2016-06-08 17:02] VITALS: PULSE 62; RESP 38
[2016-06-08 17:18] LABS: Glucose,Whole Blood 255 mg/dL (75-99)
[2016-06-08] MEDS ORDERED: FUROSEMIDE 10 MG/ML 4 ML VIAL IV SCH (21:00)
[2016-06-09 07:43] LABS: Mis test requested (Blood) Hypersen.Pneumo Eval
--- NOTE | 2016-06-09 08:59 | PN ---
DATE OF SERVICE: 06/08/2016 Reason for followup is gram negative pneumonia. INTERVAL HISTORY: The patient is afebrile. He was seen on rounds this afternoon where the patient had been complaining of some more shortness of breath for which a repeat echocardiogram has been done. Chest x-ray showing more pulmonary congestion, has been given extra dose of Lasix. Hemodynamically, the patient is stable, not on any pressor support. He was having mild cough, some clear sputum. No hemoptysis. No chest pain. No abdominal pain or any diarrhea. On examination, blood pressure is 133/58 with a pulse of 60, temperature 97.8. He is 97% on high flow oxygen. General description is an elderly male, lying in bed in no distress. RESPIRATORY SYSTEM: Unlabored breathing. Some coarse breath sounds at the bases. No wheeze. HEART: S1, S2. Regular rate and rhythm. ABDOMEN: Soft, no tenderness. EXTREMITIES: No edema of feet. LABS: Hemoglobin 7.2, white count 7.4 with a BUN of 53, creatinine 1.10. Sputum is showing Serratia marcescens that is sensitive to Zosyn, which the patient is on. Blood culture is negative. DIAGNOSTIC IMPRESSION AND PLAN: Patient with gram-negative pneumonia in a patient who did have acute respiratory failure, vent dependent. Patient had been successfully extubated. Now complaining of more shortness of breath with evidence of fluid overload, getting extra Lasix. The patient's family wanted the patient to be transferred to tertiary care. Patient will be maintained on these antibiotics while being evaluated by ID physician in that facility. Continue supportive care. SEEMA
--- NOTE | 2016-06-21 08:22 | P.DS ---
Providers Date of admission: 05/30/16 03:18 Expected date of discharge: 06/08/16 Attending physician: Messi Greenfield Consults: 05/31/16 13:33 Consult Physician Stat Consulting Provider: Sal Turcios Consult Reason/Comments: LOW BP POST EP/CARDIOVERSION DROP IN HGB/HCT Do you want consulting provider notified?: Already Contacted 06/01/16 15:32 Consult Physician Stat Consulting Provider: Angel Pendleton Consult Reason/Comments: Regarding venous ablation site bleeding. Do you want consulting provider notified?: Yes 06/04/16 23:29 Consult Physician Urgent Consulting Provider: Davy Cruz Consult Reason/Comments: decreased urine output Do you want consulting provider notified?: Already Contacted 06/05/16 16:45 Consult Physician Routine Consulting Provider: Manish Sutton Consult Reason/Comments: sepsis Do you want consulting provider notified?: Yes 06/06/16 13:15 Consult Physician Routine Consulting Provider: Joao Villagomez Consult Reason/Comments: Rehab Do you want consulting provider notified?: Yes Primary care physician: Messi Greenfield [facility] Course: This is a 66-year-old gentleman who is followed by Dr. Chaitanya Parr on an outpatient basis. On 04/22/2016 the patient presented to the emergency department at [facility], with complaints of dyspnea. The patient denied complaints of any chest pain, and nausea. On presentation to the emergency department at [facility], a 12-lead EKG was completed which showed him to have some ST elevation in his inferior leads. Subsequently, this patient was seen and examined by Dr. Scherer from [facility] and the patient was transferred to [facility] for further evaluation and workup. The patient was admitted to the hospital and underwent an urgent cardiac catheterization by Dr. Scherer, which demonstrated the patient to have a totally occluded right coronary artery, 80% stenosis to a circumflex coronary artery, a 90% stenosis to his proximal left anterior descending coronary artery, and a 60 % stenosis to his mid left anterior descending coronary artery. The patient also underwent a 2-D echocardiogram, which demonstrated mild concentric left ventricular hypertrophy, mild mitral regurgitation, mild tricuspid regurgitation , an overall left ventricular systolic function severely impaired with an ejection fraction of 25-30%, [id number] aortic stenosis with mitral aortic regurgitation, and a peak/mean gradient across the aortic valve of 42.44 mmHg and 22.56 mmHg. The above-mentioned studies were reviewed with the patient by Dr. Scherer and by Dr. Hardy and an urgent coronary artery bypass grafting surgery with aortic valve replacement was done using QUEZADA to LAD saphenous venous graft to the diagonal branch, SVG to the obtuse marginal branch , and 7 as well as SVG to the RCA, along with aortic valve bioprosthesis, his hospital course was completed by acute bronchitis with Serratia marcescens as well as tachybradycardia syndrome and eventually he was transferred to [facility] for physical therapy rehabilitation. Patient was readmitted to [facility] on May 18 for atrial flutter with rapid ventricular response and underwent cardioversion on 2015. He was also treated for acute on chronic diastolic heart failure. He was discharged back to [facility] on May 24. Patient stated that he was in fine up until today when he started feeling short of breath and that he was feeling off. He was transferred to [facility] emergency center where he was found to have an elevated heart rate and again in atrial flutter. His blood pressure was low and he received fluid boluses of 1-1/2 L total. Troponins were 0.060, 0.074, 0.075. ProBNP was 5590. Urinalysis was negative. Patient was seen by cardiology with plan to have Dr. Peck evaluate for possible cardiac ablation. Patient is seen at this time in the emergency room as he is waiting for a [facility] bed to be made 06/03: He is status post EP study and ablation done on May 31. He was hypotensive following the procedure and was placed on dopamine and transferred to the intensive care unit and consult requested with Dr. Marin. He has subsequently been weaned off dopamine. This morning he has again in atrial fibrillation with heart rate running 116-120. Patient is status post 1 unit packed RBCs given on June 01 for hemoglobin of 8.0. Patient is complaining of a sore throat and thrush noted and started on nystatin. Rivers catheter has remained in place. Urine output has been good. 06/04: He has been transferred to the [facility]. Dr. Scherer added digoxin and amiodaronedrip. Anticoagulation is on hold due to hemoglobin of 9. Repeat hemoglobin today is 9.6. Blood sugars are again elevated running between 171 and 241. No changes in insulin due to his previous hypoglycemic episodes. Patient was started on Solu-Medrol yesterday. This morning, patient has increasing shortness of breath and his pulse ox was down to 72. Patient is now on a nonrebreather. Patient has been removing his nasal cannula. 06/05: Patient's respiratory status worsened over the night. He was placed on BiPAP and then ended up being intubated and placed on mechanical ventilation with tidal volume 450, FiO2 60% and PEEP of 5. Patient feeling was also quite confused. He is now on norepinephrine and amiodarone drips. Family is requesting the patient be transferred to another facility. Case management has met with family. Await final decision. 06/06: Family have decided against transfer to another facility. Patient has now been extubated. He is off vasopressors. 06/07: Nystatin and it for thrush. Patient denies any complaints this morning. He states he slept okay during the night. Patient is noted to have increased weakness. He is in A. fib/flutter today. Lasix [address] daily. Metoprolol 50 mg twice daily. Blood sugars have been running high due to Solu- Medrol for which she will be resumed back on Lantus at a lower dose of [address] Villagomez has evaluated patient for inpatient rehab. 06/08: Patient is currently on Solu-Medrol 40 mg every 6 hours. Lasix increased to 40 mg twice daily and extra dose was given. He is on O2 at 15 L high flow. Heart rate is running in the 60s and 70s. Urine output is increased to 40-50 mL per hour. Creatinine is improved to 1.1. Echocardiogram done today reveals no evidence of pulmonary hypertension, mild concentric left ventricle hypertrophy, EF 40-45%, bioprosthetic valve, mild mitral regurgitation and mild tricuspid regurgitation. Repeat chest x-ray shows correlate for congestive heart failure. Pneumonia not excluded. Family is requesting transfer to [facility] for which case management is making arrangements. Patient will be transferred today once arrangements are completed. . Discharge diagnoses: 1. Atrial flutter with rapid ventricular response with previous history of electrical cardioversions status post ablation on May 31. 2. Coronary artery disease status post coronary artery bypass graft with QUEZADA to LAD, SVG to the diagonal branch, SVG to obtuse marginal branch, SVG to RCA with severe LV dysfunction. 3. Moderate to severe aortic valve stenosis status post bioprosthetic aortic valve replacement. 4. Hypertension. Currently hypotensive. 5. Hyperlipidemia. 6. Medical debility. 7. COPD with acute exacerbation. 8. 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 9. Chronic diastolic heart failure. 7. Acute exacerbation of diastolic heart failure. 8. Diabetes mellitus type 2, uncontrolled with hypoglycemia. 9. Postprocedural hypotension, possibly due to cardiogenic or hypovolemic shock. 10. Thrush. 11. Acute on chronic hypoxic respiratory failure requiring intubation and mechanical ventilation. 12. Anemia of chronic disease. 15. Diffuse bilateral pulmonary edema, possible diffuse pneumonia on chest x- ray. Discharge plan: Return to [facility]. Impression and plan of care have been directed as dictated by the signing physician. Diane Young nurse practitioner acting as scribe for signing physician. Patient Condition at Discharge: Stable Plan - Discharge Summary Discharge Medication List Allopurinol [Zyloprim] 100 mg PO DAILY PRN 04/22/16 [History] Apixaban [Eliquis] 5 mg PO BID tab 05/11/16 [Rx] Aspirin 81 mg PO DAILY chew 05/11/16 [Rx] Bisacodyl [Dulcolax] 10 mg RECTAL DAILY PRN #0 supp 05/11/16 [Rx] Furosemide [Lasix] 20 mg PO DAILY #30 tab 05/11/16 [Rx] Insulin Glargine [Lantus] 25 unit SQ HS #0 vial 05/11/16 [Rx] Pantoprazole [Protonix] 40 mg PO AC-BRKFST tablet.dr 05/11/16 [Rx] Tamsulosin [Flomax] 0.4 mg PO PC-SUPPER #0 cap.er.24h 05/11/16 [Rx] Thiamine [Vitamin B-1] 100 mg PO BID@1200,1700 tab 05/11/16 [Rx] guaiFENesin [Mucinex] 600 mg PO Q12HR tablet.er 05/11/16 [Rx] Atorvastatin [Lipitor] 40 mg PO HS 05/18/16 [History] Multivitamins, Thera [Multivitamin] 1 tab PO QAM 05/18/16 [History] Sennosides [Senna] 17.2 mg PO HS 05/18/16 [History] Albuterol Nebulized [Ventolin Nebulized] 2.5 mg INHALATION RT-QID nebu [Rx] Amiodarone [Cordarone] 200 mg PO BID tab 05/24/16 [Rx] Budesonide [Pulmicort] 0.5 mg INHALATION RT-BID nebu 05/24/16 [Rx] Cefuroxime [Ceftin] 250 mg PO BID #14 tablet 05/24/16 [Rx] Lisinopril [Zestril] 2.5 mg PO DAILY tab 05/24/16 [Rx] Nitroglycerin Sl Tabs [Nitrostat] 0.4 mg SUBLINGUAL Q5M PRN #0 tab 05/24/16 [Rx] traMADol HCl [Ultram] 50 mg PO Q6H PRN #120 tab 05/24/16 [Rx] Amino Acids/Protein Hydrolys [Pro-Stat Supplement] 30 ml PO BID 05/30/16 [ History] Carvedilol [Coreg] 3.125 mg PO Q12H 05/30/16 [History] Ferrous Sulfate [Iron (65 MG Elemental)] 325 mg PO QAM 05/30/16 [History] INSULIN LISPRO (humaLOG) [HumaLOG] 2 units SQ BID@1130,1630 05/30/16 [History] INSULIN LISPRO (humaLOG) [humaLOG (formulary)] 3 unit SQ AC-BRKFST 05/30/16 [ History] Melatonin 3 mg PO HS 05/30/16 [History] Nystatin 100,000 Unit/ml Susp [Mycostatin Oral Susp] 5 ml PO Q6H PRN 05/30/16 [ History] Potassium Chloride [K-Tab ER] 20 meq PO DAILY 05/30/16 [History] QUEtiapine [SEROquel] 12.5 mg PO HS 05/30/16 [History] predniSONE See Taper PO DAILY 05/30/16 [History] Follow up Appointment(s)/Referral(s): Messi Greenfield MD [Primary Care Provider] - 1-2 days Discharge Disposition: TRANSFER TO [facility]
== END 2016-06-08 19:24 | disposition short-term general hospital (02) | DRG 273 ==
LOC: EC 00:17 → 6SEL 03:18 → 6ICU 05-31 13:21 → 6SEL 06-03 13:11 → 6ICU 06-04 19:05
PROVIDERS: ADMIT Internal Medicine; ATTEND Internal Medicine
PROC: 4A023FZ Measurement of Cardiac Rhythm, Percutaneous Approach (ICD-10-PCS; 2016-05-31)
PROC: 4A0234Z Measurement of Cardiac Electrical Activity, Percutaneous Approach (ICD-10-PCS; 2016-05-31)
PROC: 02K83ZZ Map Conduction Mechanism, Percutaneous Approach (ICD-10-PCS; 2016-05-31)
PROC: 02583ZZ Destruction of Conduction Mechanism, Percutaneous Approach (ICD-10-PCS; principal; 2016-05-31 07:30)
PROC: 5A1945Z Respiratory Ventilation, 24-96 Consecutive Hours (ICD-10-PCS; 2016-05-31 07:30)
PROC: 0BH17EZ Insertion of Endotracheal Airway into Trachea, Via Natural or Artificial Opening (ICD-10-PCS; 2016-05-31 07:30)
PROC: 30233N1 Transfusion of Nonautologous Red Blood Cells into Peripheral Vein, Percutaneous Approach (ICD-10-PCS; 2016-06-01)
DX: I48.92 Unspecified atrial flutter (principal); I50.33 Acute on chronic diastolic (congestive) heart failure; I21.3 ST elevation (STEMI) myocardial infarction of unspecified site; J96.01 Acute respiratory failure with hypoxia; R57.0 Cardiogenic shock; J84.9 Interstitial pulmonary disease, unspecified; J15.6 Pneumonia due to other Gram-negative bacteria; B37.0 Candidal stomatitis; I11.0 Hypertensive heart disease with heart failure; J44.0 Chronic obstructive pulmonary disease with (acute) lower respiratory infection; J44.1 Chronic obstructive pulmonary disease with (acute) exacerbation; N17.9 Acute kidney failure, unspecified; I31.3 Pericardial effusion (noninflammatory); E11.51 Type 2 diabetes mellitus with diabetic peripheral angiopathy without gangrene; D69.6 Thrombocytopenia, unspecified; E11.649 Type 2 diabetes mellitus with hypoglycemia without coma; I25.82 Chronic total occlusion of coronary artery; J84.10 Pulmonary fibrosis, unspecified; I49.5 Sick sinus syndrome; I42.9 Cardiomyopathy, unspecified; I48.0 Paroxysmal atrial fibrillation; I08.3 Combined rheumatic disorders of mitral, aortic and tricuspid valves; I44.1 Atrioventricular block, second degree; E11.65 Type 2 diabetes mellitus with hyperglycemia; I95.81 Postprocedural hypotension; E78.5 Hyperlipidemia, unspecified; D63.8 Anemia in other chronic diseases classified elsewhere; I25.10 Atherosclerotic heart disease of native coronary artery without angina pectoris; D53.9 Nutritional anemia, unspecified; J20.9 Acute bronchitis, unspecified; I25.2 Old myocardial infarction; K21.9 Gastro-esophageal reflux disease without esophagitis; M10.9 Gout, unspecified; N40.0 Benign prostatic hyperplasia without lower urinary tract symptoms; M19.90 Unspecified osteoarthritis, unspecified site; I44.7 Left bundle-branch block, unspecified; F41.9 Anxiety disorder, unspecified; Z77.090 Contact with and (suspected) exposure to asbestos; Z95.1 Presence of aortocoronary bypass graft; Z95.2 Presence of prosthetic heart valve; Z86.14 Personal history of Methicillin resistant Staphylococcus aureus infection; Z87.891 Personal history of nicotine dependence; Z79.82 Long term (current) use of aspirin; Z79.4 Long term (current) use of insulin; Z79.01 Long term (current) use of anticoagulants; Z79.51 Long term (current) use of inhaled steroids; Z79.52 Long term (current) use of systemic steroids; Z79.899 Other long term (current) drug therapy; Z82.49 Family history of ischemic heart disease and other diseases of the circulatory system
CPT/HCPCS: 36415; 36600; 71010; 71020; 76705; 80048; 80053; 80061; 81003; 82533; 82550; 82553; 82805; 83036; 83735; 83880; 84100; 84443; 84484; 85025; 85027; 85610; 85730; 86001; 86606; 86609; 86850; 86900; 86901; 86920; 87040; 87070; 87077; 87086; 87186; 87205; 93005; 93306; 93308; 93613; 93656; 93662; 93975; 94002; 94003; 94640; 94660; 94760; 96361; 96365; 96375; 99291